=== PATIENT | female | born 1975 | race American Indian/Alaskan Native ===

== ENCOUNTER 2017-05-24 14:26 | Inpatient (IN) | payer MEDICARE ==
[2017-05-24 17:16] LABS: Calcium 7.9 mg/dL (8.4-10.2); Chloride 83.9 mmol/L (98-107); Potassium 5.9 mmol/L (3.6-5.0)
[2017-05-24 17:20] LABS: Hematocrit 20.5 % (30.3-42.9); Hemoglobin 6.5 gm/dl (10.1-14.3); Mean Corpuscular HGB Conc 32 % (30-34); Mean Corpuscular Hemoglobin 28 pg (28-32); Mean Corpuscular Volume 87 fl (79-97); Platelet Count 136 K/mm3 (140-440); Red Blood Count 2.37 M/mm3 (3.65-5.03); Red Cell Distribution Width 18.4 % (13.2-15.2)
[2017-05-24 17:28] LABS: White Blood Count 2.3 K/mm3 (4.5-11.0)
[2017-05-24 18:04] LABS: Basophils % (Manual) 0 % (0.0-1.8); Blastocytes % (Manual) 0 %; Eosinophils % (Manual) 0 % (0.0-4.3)
[2017-05-24 18:06] LABS: Anisocytosis 2+; Ovalocytes 2+
[2017-05-24 18:07] LABS: Hypochromasia 2+; Poikilocytosis 1+; Tear Drop Cells Few
[2017-05-24 18:08] LABS: Diff Status Complete; Platelet Estimate Consistent w Auto
[2017-05-24] MEDS ORDERED: D50W (25GM) Vial 0 ML IV ONE (20:46)
--- NOTE | 2017-05-24 22:00 | Emergency Department Report ---
ED General Adult HPI - General Chief complaint: Skin/Abscess/Foreign Body Stated complaint: FLUID RETENTION X 3 DAYS Time Seen by Provider: 05/24/17 20:06 Source: EMS Mode of arrival: Stretcher Limitations: No Limitations - History of Present Illness Initial comments: Pt is a 41 yo female here for swelling to the right side of her body along with abdominal pain. pt states she was last dialyzed 2 days ago. pt denied any fever but notes that she has been sob. Pt noted mild cough. Pt denied knowledge of why the right side of her body may be more swollen than the left. Pt has had prior abdominal surgeries and noted pain in her upper abdomen with a history of a ventral hernial. Pt denied any vomiting, melena, or hematochezia. Location: face Improves with: none - Related Data Allergies Allergy/AdvReac Type Severity Reaction Status Date / Time ascorbic acid Allergy Hives Verified 05/24/17 16:38 [From Ferotrinsic] ferrous fumarate Allergy Hives Verified 05/24/17 16:38 [From Ferotrinsic] folic acid [From Ferotrinsic] Allergy Hives Verified 05/24/17 16:38 oxycodone Allergy Hives Verified 05/24/17 16:38 tramadol Allergy Hives Verified 05/24/17 16:38 vitamin B12 with intrinsic Allergy Hives Verified 05/24/17 16:38 factor [From Ferotrinsic] ED Review of Systems ROS: Stated complaint: FLUID RETENTION X 3 DAYS Other details as noted in HPI ED Past Medical Hx - Past Medical History Previous Medical History?: Yes Hx Hypertension: Yes Hx Congestive Heart Failure: Yes Hx GERD: Yes Hx Liver Disease: Yes (cirrhosis, ascites) Hx Renal Disease: Yes (MWF?) Hx Arthritis: Yes Hx Seizures: Yes Hx Psychiatric Treatment: Yes (depression) Hx Asthma: Yes Hx HIV: Yes Additional medical history: stents x 2 2014. chronic back pain. high cholestrol. cardiomyopathy. supplemental oxygen. abdominal hernia - Surgical History Past Surgical History?: Yes Hx Appendectomy: Yes Additional Surgical History: bowel obstruction, colostomy reversal x 3 yrs - Social History Smoking Status: Former Smoker Substance Use Type: Alcohol ED Physical Exam - General Limitations: No Limitations General appearance: alert, in no apparent distress, other (right facial edema ) - Head Head exam: Present: other (right facial edema) - Eye Eye exam: Present: normal appearance, PERRL, EOMI - ENT ENT exam: Present: normal exam - Neck Neck exam: Present: normal inspection - Respiratory Respiratory exam: Present: normal lung sounds bilaterally. Absent: respiratory distress, wheezes - Cardiovascular Cardiovascular Exam: Present: regular rate, normal rhythm, other (right arm graft) - GI/Abdominal GI/Abdominal exam: Present: soft, tenderness (left upper quad, umbilical), other (large ventral hernia-no signs of incarceration). Absent: distended, rebound - Extremities Exam Extremities exam: Present: normal inspection, pedal edema, joint swelling ( pitting up to thighs) - Back Exam Back exam: Present: normal inspection - Neurological Exam Neurological exam: Present: alert, oriented X3 - Psychiatric Psychiatric exam: Present: flat affect - Skin Skin exam: Present: warm, dry, intact ED Course Vital Signs 05/24/17 16:20 Temperature 98.1 F Pulse Rate 81 Respiratory 18 Rate Blood Pressure 154/90 - Consultations Consultation #1: 05/25/17 01:00 Dr Rodas ED Medical Decision Making - Lab Data Result diagrams: 05/24/17 16:44 05/24/17 16:44 - EKG Data -: EKG Interpreted by Tn EKG shows normal: sinus rhythm (84) Rate: normal - EKG Data Interpretation: nonspecific ST-T wave bunny (no acute st elevation or depression) , other (poor r wave progression; ) Critical care attestation.: If time is entered above; I have spent that time in minutes in the direct care of this critically ill patient, excluding procedure time. ED Disposition Clinical Impression: Anasarca, Renal anasarca, Abdominal pain, Pleural effusion, left, Pancytopenia , Elevated troponin level, Chronic renal failure Disposition: - OP ADMIT IP TO THIS HOSP Is pt being admited?: Yes Does the pt Need Aspirin: No Condition: Stable Referrals: PRIMARY CARE, [Primary Care Provider] - 3-5 Days
[2017-05-25] MEDS ORDERED: BENADRYL IV ONE (00:02)
[2017-05-25] MEDS ORDERED: PEPCID IV ONE (00:03)
--- NOTE | 2017-05-25 01:10 | History and Physical Report ---
History of Present Illness Chief complaint: confused, History of present illness: 41 YO Female with HTN, CHF, GERD, Ascites, Cirrhosis, HIV, OA, Seizure Disorder , Depression, Asthma, ESRD on HD(M,W,F), CAD S/P Stent Placement, HLD, Chronic Pain presents to ED for evaluation. At time of exam, pt is lethargic, confused, and unable to provide history. Pt is disheveled, emaciated, and chronically ill appearing. Pt seen and evaluated in ED. Pt history taken from medical record, and ED staff. No reports of fever, chills, CP, Palpitations, NVD, Trauma, productive cough, skin rash, or recent ill contacts. Pt was last dialyzed 2 days ago. Pt is confused, and lethargic but is able to protect her airway. Past History Past Medical History: arthritis, ESRD, GERD, heart failure, HIV/AIDS, hypertension, seizures Past Surgical History: appendectomy, bowel surgery Social history: single. denies: smoking, alcohol abuse, prescription drug abuse Family history: hypertension Medications and Allergies Allergies Allergy/AdvReac Type Severity Reaction Status Date / Time ascorbic acid Allergy Hives Verified 05/24/17 16:38 [From Ferotrinsic] ferrous fumarate Allergy Hives Verified 05/24/17 16:38 [From Ferotrinsic] folic acid [From Ferotrinsic] Allergy Hives Verified 05/24/17 16:38 oxycodone Allergy Hives Verified 05/24/17 16:38 tramadol Allergy Hives Verified 05/24/17 16:38 vitamin B12 with intrinsic Allergy Hives Verified 05/24/17 16:38 factor [From Ferotrinsic] Review of Systems ROS unobtainable: due to mental status Exam - Constitutional Vitals: Temp Pulse Resp BP Pulse Ox 98.1 F 81 18 154/90 05/24/17 16:20 05/24/17 16:20 05/24/17 16:20 05/24/17 16:20 General appearance: Present: mild distress - EENT Eyes: Present: PERRL ENT: hearing intact, clear oral mucosa - Neck Neck: Present: supple, normal ROM - Respiratory Respiratory effort: labored Respiratory: bilateral: diminished - Cardiovascular Heart Sounds: Present: S1 & S2. Absent: rub, click - Extremities Extremities: pulses symmetrical, No edema Extremity abnormal: edema Peripheral Pulses: within normal limits - Abdominal General gastrointestinal: Present: soft, non-tender, non-distended, normal bowel sounds Female genitourinary: Present: normal - Integumentary Integumentary: Present: clear, dry, clammy, decreased turgor - Musculoskeletal Musculoskeletal: generalized weakness - Psychiatric Psychiatric: no intact judgment & insight, no memory intact - Neurologic Neurologic: CNII-XII intact, no gait normal Results - Labs CBC & Chem 7: 05/24/17 16:44 05/24/17 16:44 Labs: Abnormal lab results 05/24/17 05/24/17 05/24/17 Range/Units 16:44 16:44 20:44 WBC 2.3 L (4.5-11.0) K/mm3 RBC 2.37 L (3.65-5.03) M/mm3 Hgb 6.5 L (10.1-14.3) gm/dl Hct 20.5 L (30.3-42.9) % RDW 18.4 H (13.2-15.2) % Plt Count 136 L (140-440) K/mm3 Seg Neuts % (Manual) 76.0 H (40.0-70.0) % Lymphocytes % (Manual) 5.0 L (13.4-35.0) % Seg Neutrophils # Man 1.7 L (1.8-7.7) K/mm3 Lymphocytes # (Manual) 0.1 L (1.2-5.4) K/mm3 Sodium 128 L (137-145) mmol/L Potassium 5.9 H (3.6-5.0) mmol/L Chloride 83.9 L (98-107) mmol/L BUN 91 H (7-17) mg/dL Creatinine 9.8 H (0.7-1.2) mg/dL Glucose 53 L (65-100) mg/dL POC Glucose 43 L (70-105) Calcium 7.9 L (8.4-10.2) mg/dL Troponin T 0.293 H* (0.00-0.029) ng/mL Triglycerides 187 H (2-149) mg/dL LDL Cholesterol Direct 19 L (50-130) mg/dL HDL Cholesterol 39 L (40-59) mg/dL Assessment and Plan - Patient Problems (1) Acute hypoxemic respiratory failure Current Visit: Yes Status: Acute Plan to address problem: Supplemental oxygen,nebs, aspiration precautions, incentive spirometry, (2) HIV encephalopathy Current Visit: Yes Status: Acute Plan to address problem: CT head, neuro checks, ammonia level, supportive care, (3) ESRD (end stage renal disease) Current Visit: Yes Status: Acute Plan to address problem: Nephrology consulted for dialysis, fluid restriction, monitor uop q shift to ensure negative fluid balance. (4) Hyperkalemia Current Visit: Yes Status: Acute Plan to address problem: Kayexelate, repeat potassium level, dialysis as per renal team, No EKG changes. (5) Cirrhosis Current Visit: Yes Status: Acute Plan to address problem: LFT, Ammonia level, neuro checks, CT abdomen pelvis, serial abdominal exam. (6) Symptomatic anemia Current Visit: Yes Status: Acute Plan to address problem: PRBC transfusion with dialysis, Epogen as per renal team. (7) DVT prophylaxis Current Visit: Yes Status: Acute
[2017-05-25] MEDS ORDERED: KIONEX PO ONE (01:21)
[2017-05-25] MEDS ORDERED: DULCOLAX PR PRN (02:48)
[2017-05-25] MEDS ORDERED: MILK OF MAGNESIA PO PRN (02:48)
[2017-05-25] MEDS ORDERED: NACL 0.9% 500 ML 500 ML IV ONE (02:54)
[2017-05-25] MEDS ORDERED: NACL 0.9% 500 ML 500 ML ONE (03:38)
[2017-05-25 07:54] LABS: Albumin 2.6 g/dL (3.9-5); Albumin/Globulin Ratio 0.6 %; Bilirubin,Direct 0.3 mg/dL (0-0.2); Bilirubin,Indirect 0.2 mg/dL; Bilirubin,Total 0.5 mg/dL (0.1-1.2); Total Protein 6.9 g/dL (6.3-8.2)
[2017-05-25] MEDS ORDERED: NACL 0.9% 100 ML IV PRN ×2 (08:03→11:08)
[2017-05-25] MEDS: APRESOLINE IV PRN (08:35)
[2017-05-25] MEDS ORDERED: APRESOLINE IV SCH (09:00)
--- NOTE | 2017-05-25 11:09 | Consultation ---
History of Present Illness - Reason for Consult Consult date: 05/25/17 end stage renal disease, hyperkalemia Requesting physician: ISABELLA GRIMM - History of Present Illness Ms Nation (not Martinez) is a 41 yo F with PMHX of HIV/AIDS not on ART, h/ o noncompliance, hypertension, liver cirrhosis w/ chronic ascites, ESRD on HD [place] MWF [place] [facility] [place]y Montaño, well known to our service, is now admitted after presenting with worsening diffuse body swelling, after missing HD during holidays. Renal consult is requested for management of ESRD and volume control. Labs showed hyponatremia with Na 128, K 5.9, and BUN/Cr at 91/ 9.8mg/dl. Pt also found to be anemic with Hb at 6.5. Past History Past Medical History: arthritis, ESRD, GERD, heart failure, HIV/AIDS, hypertension, seizures Past Surgical History: appendectomy, bowel surgery Social history: single. denies: smoking, alcohol abuse, prescription drug abuse Family history: hypertension Medications and Allergies Allergies Allergy/AdvReac Type Severity Reaction Status Date / Time ascorbic acid Allergy Hives Verified 05/24/17 16:38 [From Ferotrinsic] ferrous fumarate Allergy Hives Verified 05/24/17 16:38 [From Ferotrinsic] folic acid [From Ferotrinsic] Allergy Hives Verified 05/24/17 16:38 oxycodone Allergy Hives Verified 05/24/17 16:38 tramadol Allergy Hives Verified 05/24/17 16:38 vitamin B12 with intrinsic Allergy Hives Verified 05/24/17 16:38 factor [From Ferotrinsic] Active Meds: Active Medications Acetaminophen (Tylenol) 650 mg PO Q4H PRN PRN Reason: Pain MILD(1-3)/Fever >100.5/DUNAWAY Bisacodyl (Dulcolax) 10 mg ME QDAY PRN PRN Reason: Constipation unrelieved by MOM Hydralazine HCl (Apresoline) 20 mg IV Q4HR PRN PRN Reason: Blood Pressure Last Admin: 05/25/17 08:35 Dose: 20 mg Sodium Chloride (Nacl 0.9%) 100 mls @ 999 mls/hr IV STEPHAN PRN PRN Reason: Hypotension Sodium Chloride (Nacl 0.9%) 100 mls @ 999 mls/hr IV STEPHAN PRN PRN Reason: Hypotension Magnesium Hydroxide (Milk Of Magnesia) 30 ml PO Q4H PRN PRN Reason: Constipation Ondansetron HCl (Zofran) 4 mg IV Q8H PRN PRN Reason: N/V unrelieved by Reglan Review of Systems All systems: negative Constitutional: fatigue, weakness, malaise Cardiovascular: orthopnea, edema, shortness of breath, dyspnea on exertion Exam - Vital Signs Vital signs: Vital Signs Temp Pulse Resp BP 98.1 F 81 18 154/90 05/24/17 16:20 05/24/17 16:20 05/24/17 16:20 05/24/17 16:20 - General Appearance General appearance: appears stated age, chronically ill, frail EENT: ATNC, PERRL, mucous membranes moist Neck: Present: neck supple Respiratory: Decreased Breath Sounds Heart: regular, S1S2 Gastrointestinal: Present: normoactive bowel sounds Integumentary: no rash, other (edema b/l ) Neurologic: no focal deficit, alert and oriented x3, strength 5/5, CN 3-12 intact Psychiatric: mood/affect appropriate, cooperative Results - Lab Results 05/24/17 16:44 05/24/17 16:44 Most recent lab results Calcium 7.9 mg/dL (8.4-10.2) L 05/24/17 16:44 Assessment and Plan - Patient Problems (1) ESRD (end stage renal disease) Current Visit: Yes Status: Acute Plan to address problem: Will arrange HD today will target 3-4L fluid removal as tolerated. Will transition to MWF schedule starting tomorrow (2) Hyperkalemia Current Visit: Yes Status: Acute Plan to address problem: use 2K bath with HD, cont 2g K renal diet (3) HIV (human immunodeficiency virus infection) Current Visit: Yes Status: Acute Plan to address problem: pt with h/o noncompliance with ART (4) Anasarca Current Visit: Yes Status: Acute Plan to address problem: fluid removal with HD (5) Pleural effusion Current Visit: Yes Status: Acute Plan to address problem: if not improving with HD, recommend therapeutic thoracentesis (6) Cirrhosis Current Visit: Yes Status: Acute Qualifiers: Ascites presence: with ascites Plan to address problem: pt with h/o periodic paracentesis in the past, to reconsider if abdominal girth increases and becomes symptomatic (7) Anemia in chronic illness Current Visit: Yes Status: Acute Plan to address problem: cont EPO [id number] with HD. scheduled for 2PRBC, can transfuse with HD. D/w RN
--- NOTE | 2017-05-25 11:14 | Cat Scan Report ---
FINAL REPORT EXAM: CT ABDOMEN PELVIS WO CON HISTORY: abdominal pain TECHNIQUE: Routine axial imaging was obtained of the abdomen and pelvis without oral or IV contrast. Sagittal and coronal reconstructions were reviewed. FINDINGS: There is a moderate to large right-sided pleural effusion with atelectasis in the right lower lobe. There is mild atelectasis in left base. Heart is moderately enlarged. There is extensive ascites throughout the abdomen and pelvis. The spleen is normal in size reveals numerous granulomatous calcifications. The gallbladder is normal size and contains stones. There are no secondary signs of acute cholecystitis. The kidneys appear atrophic. There is calcifications in both kidneys. There is extensive vascular calcifications in the upper abdomen. The pancreas appears atrophic. The adrenal glands appear normal. The bowel loops are not overtly distended. In the pelvis there are numerous coarse calcifications in the uterus suggesting involuted fibroids. The bladder appears normal. The skeletal structures reveal sclerotic changes in the right femoral head suggesting avascular necrosis. There is arthritic changes lower lumbar spine. IMPRESSION: Extensive ascites. Gallstones. Moderate to large right-sided pleural effusion with infiltrate/atelectasis in the right lower lobe. Mild atelectasis in the left lung base. Atrophic kidneys. Reticulation of the subcutaneous fat suggesting anasarca. 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 Involuted fibroids.
--- NOTE | 2017-05-25 11:38 | Cat Scan Report ---
FINAL REPORT EXAM: CT HEAD WO CONTRAST HISTORY: CONFUSION TECHNIQUE: Routine imaging was obtained of the brain without IV contrast. There are no previous studies available for comparison. FINDINGS: There is [id number] generalized atrophy. There is no evidence of acute stroke or hemorrhage. The ventricular system is appropriate in size and is symmetric. There are benign basal ganglial calcifications body. The sinuses reveal secretions in the right sphenoid sinus. The mastoid air cells are well pneumatized. There is no evidence of skull fracture. IMPRESSION: [id number] generalized atrophy. No acute stroke or hemorrhage. Right sphenoid sinusitis.
--- NOTE | 2017-05-25 14:47 | Progress Note ---
Assessment and Plan Assessment and plan: 40 year old -[place] female presented to the emergency department with complaints of missed dialysis, not feeling well, confusion. Per chart review patient had history of HIV, ESRD on hemodialysis. Patient said she presented for fluid overload Fluid overload secondary to missed dialysis Severe anemia Hyperkalemia ESRD on hemodialysis Right-sided pleural effusion Elevated troponin, cardiomegaly Abdominal pain, clean dressing on the right lower abdomen from surgery History of HIV Leukopenia from HIV - Nephrology consulted and patient had hemodialysis, transfused 3 units of blood , with a posttransfusion H&H - For abdominal pain and surgery, surgery consulted - Patient claims she has been admitted in the stool, GI consulted, transfuse if hemoglobin is below 7 - We'll consult ID for HIV - Paralyzed consulted for the massive pleural effusion - Cardiology is consulted - Follow up with psych DVT prophylaxis - On heparin Disposition - Continue inpatient care Prognosis - guarded History Interval history: Patient was seen and evaluated this morning, patient was confused and wa able to give history. No family member was in the room. No previous medical records in the hospital. Hospitalist Physical - Physical exam Narrative exam: Not in cardiopulmonary distress. The patient appeared well nourished and normally developed. Vital signs as documented. Head exam is unremarkable. No scleral icterus . Neck is without jugular venous distension, thyromegaly, or carotid bruits. Lungs decreased breath sounds on the right lower lung zone. Cardiac exam reveals regular rate and Rhythm. First and second heart sounds normal. No murmurs, rubs or gallops. Abdominal exam reveals clean dressing on the left lower abdomen, soft, mild tenderness. Extremities are nonedematous and both femoral and pedal pulses are normal. BACK HANGER: Patient is confused and asking to leave. - Constitutional Vitals: Temp Pulse Resp BP Pulse Ox 98.8 F 76 20 216/120 98 05/25/17 12:45 05/25/17 13:00 05/25/17 13:00 05/25/17 13:00 05/25/17 12:45 General appearance: Present: mild distress Results - Labs CBC & Chem 7: 05/24/17 16:44 05/24/17 16:44 Labs: Laboratory Last Values WBC 2.3 K/mm3 (4.5-11.0) L 05/24/17 16:44 RBC 2.37 M/mm3 (3.65-5.03) L 05/24/17 16:44 Hgb 6.5 gm/dl (10.1-14.3) L 05/24/17 16:44 Hct 20.5 % (30.3-42.9) L 05/24/17 16:44 MCV 87 fl (79-97) 05/24/17 16:44 MCH 28 pg (28-32) 05/24/17 16:44 MCHC 32 % (30-34) 05/24/17 16:44 RDW 18.4 % (13.2-15.2) H 05/24/17 16:44 Plt Count 136 K/mm3 (140-440) L 05/24/17 16:44 Add Manual Diff Complete 05/24/17 16:44 Total Counted 100 05/24/17 16:44 Seg Neuts % (Manual) 76.0 % (40.0-70.0) H 05/24/17 16:44 Band Neutrophils % 12.0 % 05/24/17 16:44 Lymphocytes % (Manual) 5.0 % (13.4-35.0) L 05/24/17 16:44 Reactive Lymphs % (Man) 0 % 05/24/17 16:44 Monocytes % (Manual) 7.0 % (0.0-7.3) 05/24/17 16:44 Eosinophils % (Manual) 0 % (0.0-4.3) 05/24/17 16:44 Basophils % (Manual) 0 % (0.0-1.8) 05/24/17 16:44 Metamyelocytes % 0 % 05/24/17 16:44 Myelocytes % 0 % 05/24/17 16:44 Promyelocytes % 0 % 05/24/17 16:44 Blast Cells % 0 % 05/24/17 16:44 Nucleated RBC % Not Reportable 05/24/17 16:44 Seg Neutrophils # Man 1.7 K/mm3 (1.8-7.7) L 05/24/17 16:44 Band Neutrophils # 0.3 K/mm3 05/24/17 16:44 Lymphocytes # (Manual) 0.1 K/mm3 (1.2-5.4) L 05/24/17 16:44 Abs React Lymphs (Man) 0.0 K/mm3 05/24/17 16:44 Monocytes # (Manual) 0.2 K/mm3 (0.0-0.8) 05/24/17 16:44 Eosinophils # (Manual) 0.0 K/mm3 (0.0-0.4) 05/24/17 16:44 Basophils # (Manual) 0.0 K/mm3 (0.0-0.1) 05/24/17 16:44 Metamyelocytes # 0.0 K/mm3 05/24/17 16:44 Myelocytes # 0.0 K/mm3 05/24/17 16:44 Promyelocytes # 0.0 K/mm3 05/24/17 16:44 Blast Cells # 0.0 K/mm3 05/24/17 16:44 WBC Morphology Not Reportable 05/24/17 16:44 Hypersegmented Neuts Not Reportable 05/24/17 16:44 Hyposegmented Neuts Not Reportable 05/24/17 16:44 Hypogranular Neuts Not Reportable 05/24/17 16:44 Smudge Cells Not Reportable 05/24/17 16:44 Toxic Granulation Not Reportable 05/24/17 16:44 Toxic Vacuolation Not Reportable 05/24/17 16:44 Dohle Bodies Not Reportable 05/24/17 16:44 Pelger-Huet Anomaly Not Reportable 05/24/17 16:44 Ruben Rods Not Reportable 05/24/17 16:44 Platelet Estimate Consistent w auto 05/24/17 16:44 Clumped Platelets Not Reportable 05/24/17 16:44 Plt Clumps, EDTA Not Reportable 05/24/17 16:44 Large Platelets Not Reportable 05/24/17 16:44 Giant Platelets Not Reportable 05/24/17 16:44 Platelet Satelliting Not Reportable 05/24/17 16:44 Plt Morphology Comment Not Reportable 05/24/17 16:44 RBC Morphology Not Reportable 05/24/17 16:44 Dimorphic RBCs Not Reportable 05/24/17 16:44 Polychromasia Not Reportable 05/24/17 16:44 Hypochromasia 2+ 05/24/17 16:44 Poikilocytosis 1+ 05/24/17 16:44 Anisocytosis 2+ 05/24/17 16:44 Microcytosis Not Reportable 05/24/17 16:44 Macrocytosis Not Reportable 05/24/17 16:44 Spherocytes Not Reportable 05/24/17 16:44 Pappenheimer Bodies Not Reportable 05/24/17 16:44 Sickle Cells Not Reportable 05/24/17 16:44 Target Cells Not Reportable 05/24/17 16:44 Tear Drop Cells Few 05/24/17 16:44 Ovalocytes 2+ 05/24/17 16:44 Helmet Cells Not Reportable 05/24/17 16:44 [place] Bodies Not Reportable 05/24/17 16:44 [place] Rings Not Reportable 05/24/17 16:44 [place] Cells Not Reportable 05/24/17 16:44 Bite Cells Not Reportable 05/24/17 16:44 Crenated Cell Not Reportable 05/24/17 16:44 Elliptocytes Not Reportable 05/24/17 16:44 Acanthocytes (Spur) Not Reportable 05/24/17 16:44 Rouleaux Not Reportable 05/24/17 16:44 Hemoglobin C Crystals Not Reportable 05/24/17 16:44 Schistocytes Not Reportable 05/24/17 16:44 Malaria parasites Not Reportable 05/24/17 16:44 Rick Bodies Not Reportable 05/24/17 16:44 Hem Pathologist Commnt No 05/24/17 16:44 Sodium 128 mmol/L (137-145) L 05/24/17 16:44 Potassium 5.9 mmol/L (3.6-5.0) H 05/24/17 16:44 Chloride 83.9 mmol/L (98-107) L 05/24/17 16:44 Carbon Dioxide 22 mmol/L (22-30) 05/24/17 16:44 Anion Gap 28 mmol/L 05/24/17 16:44 BUN 91 mg/dL (7-17) H 05/24/17 16:44 Creatinine 9.8 mg/dL (0.7-1.2) H 05/24/17 16:44 Estimated GFR 5 ml/min 05/24/17 16:44 BUN/Creatinine Ratio 9 % 05/24/17 16:44 Glucose 53 mg/dL (65-100) L 05/24/17 16:44 POC Glucose 124 (70-105) H 05/25/17 06:06 Calcium 7.9 mg/dL (8.4-10.2) L 05/24/17 16:44 Total Bilirubin 0.50 mg/dL (0.1-1.2) 05/25/17 07:17 Direct Bilirubin 0.3 mg/dL (0-0.2) H 05/25/17 07:17 Indirect Bilirubin 0.2 mg/dL 05/25/17 07:17 AST 17 units/L (5-40) 05/25/17 07:17 ALT 7 units/L (7-56) 05/25/17 07:17 Alkaline Phosphatase 355 units/L (35-129) H 05/25/17 07:17 Ammonia 26.0 umol/L (25-60) 05/25/17 07:18 Troponin T 0.293 ng/mL (0.00-0.029) H* 05/24/17 16:44 Total Protein 6.9 g/dL (6.3-8.2) 05/25/17 07:17 Albumin 2.6 g/dL (3.9-5) L 05/25/17 07:17 Albumin/Globulin Ratio 0.6 % 05/25/17 07:17 Triglycerides 187 mg/dL (2-149) H 05/24/17 16:44 Cholesterol 95 mg/dL (50-199) 05/24/17 16:44 LDL Cholesterol Direct 19 mg/dL (50-130) L 05/24/17 16:44 HDL Cholesterol 39 mg/dL (40-59) L 05/24/17 16:44 Cholesterol/HDL Ratio 2.43 % 05/24/17 16:44 Blood Type A POSITIVE 05/25/17 03:54 Antibody Screen Negative 05/25/17 03:54 Crossmatch See Detail 05/25/17 03:54
[2017-05-25] MEDS: TYLENOL PO PRN ×2 (15:08→21:11)
[2017-05-25] MEDS: ZOFRAN IV PRN (15:10)
[2017-05-25] MEDS: DILAUDID IV PRN ×2 (15:16→19:00)
--- NOTE | 2017-05-25 15:26 | Consultation ---
History of Present Illness Consult date: 05/25/17 Requesting physician: MARIA VICTORIA BARNES Consult reason: shortness of breath, other (cardiomegaly) History of present illness: The pt is a 41 YO female with a past medical history significant for ESRD on HD , HTN, HIV, liver cirrhosis, ascites, seizures. She is previously unknown to our practice. Pt is lethargic on evaluation and is a poor historian and thus the majority of the HPI is obtained per the primary RN at bedside and per the chart. Pt presented with c/o SOB x 3 days [employer]. Pt was apparently living in a fdc and missed HD for 1 week prior to the onset of her SOB. Pt does not provide any additional details. She c/o back pain on evaluation. Pt is seen s/p HD and PRBC tx. BP is currently 206/108. Admission CXR concerning for large right pleural effusion. H/H 6.5/20.5; WBC 2.3; RBC 2.3; NA 128; K 5.9; Ca 7.9; BUN/CR 91/9.8; troponin 0.293. Past History Past Medical History: dialysis, ESRD, HIV/AIDS, hypertension, seizures Past Surgical History: appendectomy Social history: single. denies: smoking, alcohol abuse, prescription drug abuse Medications and Allergies Allergies Allergy/AdvReac Type Severity Reaction Status Date / Time ascorbic acid Allergy Hives Verified 05/24/17 16:38 [From Ferotrinsic] ferrous fumarate Allergy Hives Verified 05/24/17 16:38 [From Ferotrinsic] folic acid [From Ferotrinsic] Allergy Hives Verified 05/24/17 16:38 oxycodone Allergy Hives Verified 05/24/17 16:38 tramadol Allergy Hives Verified 05/24/17 16:38 vitamin B12 with intrinsic Allergy Hives Verified 05/24/17 16:38 factor [From Ferotrinsic] Active Meds: Active Medications Acetaminophen (Tylenol) 650 mg PO Q4H PRN PRN Reason: Pain MILD(1-3)/Fever >100.5/DUNAWAY Last Admin: 05/25/17 15:08 Dose: 650 mg Amlodipine Besylate (Norvasc) 10 mg PO QDAY KATHARINA Bisacodyl (Dulcolax) 10 mg [place] QDAY PRN PRN Reason: Constipation unrelieved by MOM Clonidine HCl (Catapres) 0.3 mg PO Q8HR [facility] Epoetin Demar (Epogen) 20,000 unit IV STEPHAN [facility] Stop: 06/01/17 11:59 Hydralazine HCl (Apresoline) 20 mg IV Q4HR PRN PRN Reason: Blood Pressure Last Admin: 05/25/17 08:35 Dose: 20 mg Hydralazine HCl (Apresoline) 100 mg PO TID KATHARINA Hydromorphone HCl (Dilaudid) 1 mg IV Q4H PRN PRN Reason: Pain , Severe (7-10) Last Admin: 05/25/17 15:16 Dose: 1 mg Sodium Chloride (Nacl 0.9%) 100 mls @ 999 mls/hr IV STEPHAN PRN PRN Reason: Hypotension Magnesium Hydroxide (Milk Of Magnesia) 30 ml PO Q4H PRN PRN Reason: Constipation Ondansetron HCl (Zofran) 4 mg IV Q8H PRN PRN Reason: N/V unrelieved by Reglan Last Admin: 05/25/17 15:10 Dose: 4 mg Review of Systems All systems: negative Cardiovascular: shortness of breath, no chest pain Physical Examination Vital Signs Temp Pulse Resp BP 98.1 F 81 18 154/90 05/24/17 16:20 05/24/17 16:20 05/24/17 16:20 05/24/17 16:20 General appearance: no acute distress, cachectic, other (lethargic) HEENT: Positive: PERRL Neck: Positive: neck supple, trachea midline Cardiac: Positive: Reg Rate and Rhythm, S1/S2 Lungs: Positive: clear to auscultation (left side), Decreased Breath Sounds ( right side) Neuro: Positive: Grossly Intact Abdomen: Positive: Active Bowel Sounds. Negative: Tender Skin: Positive: Clear. Negative: Rash Extremities: Present: edema (trace BLE) Results 05/24/17 16:44 05/24/17 16:44 Cardiac Enzymes 05/25/17 Range/Units 07:17 AST 17 (5-40) units/L Lipids 05/24/17 Range/Units 16:44 Triglycerides 187 H (2-149) mg/dL Cholesterol 95 (50-199) mg/dL HDL Cholesterol 39 L (40-59) mg/dL Cholesterol/HDL Ratio 2.43 % CBC 05/24/17 Range/Units 16:44 WBC 2.3 L (4.5-11.0) K/mm3 RBC 2.37 L (3.65-5.03) M/mm3 Hgb 6.5 L (10.1-14.3) gm/dl Hct 20.5 L (30.3-42.9) % Plt Count 136 L (140-440) K/mm3 Comprehensive Metabolic Panel 05/24/17 05/25/17 Range/Units 16:44 07:17 Sodium 128 L (137-145) mmol/L Potassium 5.9 H (3.6-5.0) mmol/L Chloride 83.9 L (98-107) mmol/L Carbon Dioxide 22 (22-30) mmol/L BUN 91 H (7-17) mg/dL Creatinine 9.8 H (0.7-1.2) mg/dL Glucose 53 L (65-100) mg/dL Calcium 7.9 L (8.4-10.2) mg/dL Direct Bilirubin 0.3 H (0-0.2) mg/dL Indirect Bilirubin 0.2 mg/dL AST 17 (5-40) units/L ALT 7 (7-56) units/L Alkaline Phosphatase 355 H (35-129) units/L Total Protein 6.9 (6.3-8.2) g/dL Albumin 2.6 L (3.9-5) g/dL - Imaging and Cardiology Echo: pending EKG: report reviewed, image reviewed EKG interpretations - Telemetry EKG Rhythm: Sinus Rhythm - EKG Sinus rhythms and dysrhythmias: sinus rhythm Repolarization changes or abnormalities: nonspecific abnormality, ST segment, and/or T wave Assessment and Plan Assessment: Hypertensive urgency Volume overload secondary to missed dialysis Large right-sided pleural effusion - pulmonary consultation pending ESRD on HD Severe anemia / pancytopenia - s/p PRBC tx ? GI bleed - stool occult pending NSTEMI type II - ECG with no acute ischemic changes; pt denies chest pain Cirrhosis with ascites Hyponatremia Hyperkalemia HIV H/o seizures H/o noncompliance Malnutrition Plan: Obtain echo. Cont to trend Se. Repeat EKG in AM. Optimize anti-hypertensive regimen. Hold ASA/DAPT in setting of severe anemia and possible GI bleed. GI consultation pending. Volume optimization and electrolyte management per nephrology/HD. Overall guarded prognosis. The patient has been seen in conjunction with Dr. CAREN Atkinson who agrees with the assessment and plan of care.
[2017-05-25] MEDS: NORVASC PO SCH (15:39)
--- NOTE | 2017-05-25 15:40 | Consultation ---
History of Present Illness Consult date: 05/25/17 Reason for consult: abdominal pain Requesting physician: MARIA VICTORIA BARNES Chief complaint: abdominal pain, missed HD - History of present illness History of present illness: 41 yo F with extensive PMHx including ESRD on HD, HIV, liver cirrhosis, ascites presents to hospital after missing HD. The patient is an extremely poor historian and all of the history is obtained from the chart. The patient does complain of abdominal pain however she is unable to characterize or localize the pain. She also c/o nausea and emesis which she states has had bright blood in it. The abd pain, n/v has been ongoing for the last several days. Apparently , the patient did miss HD over the holidays and has a hx of noncompliance. She also states she has been having dark, loose, BMs for the last few days. She states she had a cscope a "few days ago". She has a hx of multiple abdominal surgeries but cannot tell me exactly what was done, but states they were done in [place] at an unknown hospital. Past History Past Medical History: arthritis, ESRD, GERD, heart failure, HIV/AIDS, hypertension, seizures Past Surgical History: appendectomy, bowel surgery Social history: single. denies: smoking, alcohol abuse, prescription drug abuse Family history: hypertension Medications and Allergies Allergies Allergy/AdvReac Type Severity Reaction Status Date / Time ascorbic acid Allergy Hives Verified 05/24/17 16:38 [From Ferotrinsic] ferrous fumarate Allergy Hives Verified 05/24/17 16:38 [From Ferotrinsic] folic acid [From Ferotrinsic] Allergy Hives Verified 05/24/17 16:38 oxycodone Allergy Hives Verified 05/24/17 16:38 tramadol Allergy Hives Verified 05/24/17 16:38 vitamin B12 with intrinsic Allergy Hives Verified 05/24/17 16:38 factor [From Ferotrinsic] Active Meds: Active Medications Acetaminophen (Tylenol) 650 mg PO Q4H PRN PRN Reason: Pain MILD(1-3)/Fever >100.5/DUNAWAY Last Admin: 05/25/17 15:08 Dose: 650 mg Amlodipine Besylate (Norvasc) 10 mg PO QDAY KATHARINA Bisacodyl (Dulcolax) 10 mg [place] QDAY PRN PRN Reason: Constipation unrelieved by MOM Clonidine HCl (Catapres) 0.3 mg PO Q8HR KATHARINA Epoetin Demar (Epogen) 20,000 unit IV STEPHAN KATHARINA Stop: 06/01/17 11:59 Hydralazine HCl (Apresoline) 20 mg IV Q4HR PRN PRN Reason: Blood Pressure Last Admin: 05/25/17 08:35 Dose: 20 mg Hydralazine HCl (Apresoline) 100 mg PO TID KATHARINA Hydromorphone HCl (Dilaudid) 1 mg IV Q4H PRN PRN Reason: Pain , Severe (7-10) Last Admin: 05/25/17 15:16 Dose: 1 mg Sodium Chloride (Nacl 0.9%) 100 mls @ 999 mls/hr IV STEPHAN PRN PRN Reason: Hypotension Magnesium Hydroxide (Milk Of Magnesia) 30 ml PO Q4H PRN PRN Reason: Constipation Ondansetron HCl (Zofran) 4 mg IV Q8H PRN PRN Reason: N/V unrelieved by Reglan Last Admin: 05/25/17 15:10 Dose: 4 mg Review of Systems All systems: negative (see hpi) Exam Vital Signs Temp Pulse Resp BP 98.1 F 81 18 154/90 05/24/17 16:20 05/24/17 16:20 05/24/17 16:20 05/24/17 16:20 Narrative exam: Gen: AAOx3. NAD. generalized anasarca CV: S1, S2+ Resp: NO audible wheezes Abd: soft, multiple ventral hernias vs loss of domain, soft, TTP in R side of abdomen. No r/r/g. Midline superficial abdominal wound, clean pink base without evidence of infection. Ext: no clubbing, cyanosis Results - Labs 05/24/17 16:44 05/24/17 16:44 Abnormal lab results 05/24/17 05/24/17 05/24/17 Range/Units 16:44 16:44 20:44 WBC 2.3 L (4.5-11.0) K/mm3 RBC 2.37 L (3.65-5.03) M/mm3 Hgb 6.5 L (10.1-14.3) gm/dl Hct 20.5 L (30.3-42.9) % RDW 18.4 H (13.2-15.2) % Plt Count 136 L (140-440) K/mm3 Seg Neuts % (Manual) 76.0 H (40.0-70.0) % Lymphocytes % (Manual) 5.0 L (13.4-35.0) % Seg Neutrophils # Man 1.7 L (1.8-7.7) K/mm3 Lymphocytes # (Manual) 0.1 L (1.2-5.4) K/mm3 Sodium 128 L (137-145) mmol/L Potassium 5.9 H (3.6-5.0) mmol/L Chloride 83.9 L (98-107) mmol/L BUN 91 H (7-17) mg/dL Creatinine 9.8 H (0.7-1.2) mg/dL Glucose 53 L (65-100) mg/dL POC Glucose 43 L (70-105) Calcium 7.9 L (8.4-10.2) mg/dL Direct Bilirubin (0-0.2) mg/dL Alkaline Phosphatase (35-129) units/L Troponin T 0.293 H* (0.00-0.029) ng/mL Albumin (3.9-5) g/dL Triglycerides 187 H (2-149) mg/dL LDL Cholesterol Direct 19 L (50-130) mg/dL HDL Cholesterol 39 L (40-59) mg/dL Crossmatch 05/25/17 05/25/17 05/25/17 Range/Units 01:28 03:54 06:06 WBC (4.5-11.0) K/mm3 RBC (3.65-5.03) M/mm3 Hgb (10.1-14.3) gm/dl Hct (30.3-42.9) % RDW (13.2-15.2) % Plt Count (140-440) K/mm3 Seg Neuts % (Manual) (40.0-70.0) % Lymphocytes % (Manual) (13.4-35.0) % Seg Neutrophils # Man (1.8-7.7) K/mm3 Lymphocytes # (Manual) (1.2-5.4) K/mm3 Sodium (137-145) mmol/L Potassium (3.6-5.0) mmol/L Chloride (98-107) mmol/L BUN (7-17) mg/dL Creatinine (0.7-1.2) mg/dL Glucose (65-100) mg/dL POC Glucose 109 H 124 H (70-105) Calcium (8.4-10.2) mg/dL Direct Bilirubin (0-0.2) mg/dL Alkaline Phosphatase (35-129) units/L Troponin T (0.00-0.029) ng/mL Albumin (3.9-5) g/dL Triglycerides (2-149) mg/dL LDL Cholesterol Direct (50-130) mg/dL HDL Cholesterol (40-59) mg/dL Crossmatch See Detail 05/25/17 Range/Units 07:17 WBC (4.5-11.0) K/mm3 RBC (3.65-5.03) M/mm3 Hgb (10.1-14.3) gm/dl Hct (30.3-42.9) % RDW (13.2-15.2) % Plt Count (140-440) K/mm3 Seg Neuts % (Manual) (40.0-70.0) % Lymphocytes % (Manual) (13.4-35.0) % Seg Neutrophils # Man (1.8-7.7) K/mm3 Lymphocytes # (Manual) (1.2-5.4) K/mm3 Sodium (137-145) mmol/L Potassium (3.6-5.0) mmol/L Chloride (98-107) mmol/L BUN (7-17) mg/dL Creatinine (0.7-1.2) mg/dL Glucose (65-100) mg/dL POC Glucose (70-105) Calcium (8.4-10.2) mg/dL Direct Bilirubin 0.3 H (0-0.2) mg/dL Alkaline Phosphatase 355 H (35-129) units/L Troponin T (0.00-0.029) ng/mL Albumin 2.6 L (3.9-5) g/dL Triglycerides (2-149) mg/dL LDL Cholesterol Direct (50-130) mg/dL HDL Cholesterol (40-59) mg/dL Crossmatch Diabetes panel 05/24/17 05/25/17 Range/Units 16:44 07:17 Sodium 128 L (137-145) mmol/L Potassium 5.9 H (3.6-5.0) mmol/L Chloride 83.9 L (98-107) mmol/L Carbon Dioxide 22 (22-30) mmol/L BUN 91 H (7-17) mg/dL Creatinine 9.8 H (0.7-1.2) mg/dL Glucose 53 L (65-100) mg/dL Calcium 7.9 L (8.4-10.2) mg/dL AST 17 (5-40) units/L ALT 7 (7-56) units/L Alkaline Phosphatase 355 H (35-129) units/L Total Protein 6.9 (6.3-8.2) g/dL Albumin 2.6 L (3.9-5) g/dL Triglycerides 187 H (2-149) mg/dL HDL Cholesterol 39 L (40-59) mg/dL Calcium panel 05/24/17 05/25/17 Range/Units 16:44 07:17 Calcium 7.9 L (8.4-10.2) mg/dL Albumin 2.6 L (3.9-5) g/dL Pituitary panel 05/24/17 Range/Units 16:44 Sodium 128 L (137-145) mmol/L Potassium 5.9 H (3.6-5.0) mmol/L Chloride 83.9 L (98-107) mmol/L Carbon Dioxide 22 (22-30) mmol/L BUN 91 H (7-17) mg/dL Creatinine 9.8 H (0.7-1.2) mg/dL Glucose 53 L (65-100) mg/dL Calcium 7.9 L (8.4-10.2) mg/dL Adrenal panel 05/24/17 05/25/17 Range/Units 16:44 07:17 Sodium 128 L (137-145) mmol/L Potassium 5.9 H (3.6-5.0) mmol/L Chloride 83.9 L (98-107) mmol/L Carbon Dioxide 22 (22-30) mmol/L BUN 91 H (7-17) mg/dL Creatinine 9.8 H (0.7-1.2) mg/dL Glucose 53 L (65-100) mg/dL Calcium 7.9 L (8.4-10.2) mg/dL Total Bilirubin 0.50 (0.1-1.2) mg/dL AST 17 (5-40) units/L ALT 7 (7-56) units/L Alkaline Phosphatase 355 H (35-129) units/L Total Protein 6.9 (6.3-8.2) g/dL Albumin 2.6 L (3.9-5) g/dL - Imaging CT scan - abdomen: report reviewed, image reviewed CT scan - pelvis: report reviewed, image reviewed (extensive ascites, gallstones. Moderate to large right sided pleural effusion with infiltrate/ atelectasis in the right lowe lobe. mild atelectasis in the left lung base. Atrophic kidneys. Reticulation of the subcutaneous fat suggesting anasarca. 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 Involuted fibroids.) Assessment and Plan 41 y/o F with 1. ESRD on HD 2. Anemia -> chronic with possible superimposed GI source 3. Cirrhosis with Ascites 4. Abdominal pain, N/V/Diarrhea 5. HIV 6. HTN 7. elevated Troponin 8. pleural effusion 9. malnutrition 10. hyperkalemia Plan: 1. Gi c/s pending 2. Clear liquids 3. nausea and pain control prn 4. stool studies 5. wound care consult for abd wound 6. HD per nephro 7. abd pain may be secondary to symptomatic ascites, may need paracentesis if does not improve 8. recheck BMP, CBC in am 9. transfuse PRN, PRBC transfusion ordered for today 10. continue meds for HTN 11. cards c/s pending
--- NOTE | 2017-05-25 16:47 | Gastroenterology Consultation ---
History of Present Illness - Reason for Consult Consult date: 05/25/17 anemia Requesting physician: MARIA VICTORIA BARNES - History of Present Illness Ms Martinez is a 41 yo aaf with past medical history as detailed below including HIV (not on treatment), ESRD, and cirrhosis who presents with AMS. History primarily gathered from chart review as patient unable to provide much history at the time of exam. She is awake, appears uncomfortable, but minimally responds to questions. She reportedly has had episodes of n/v since admission. Patient unable to describe appearance of emesis but reportedly with signs of possible blood (pt nods "yes" when asked if dark appearing emesis" although history may be unreliable based on mental status). She reports having multiple bm's w/o signs of overt bleeding. She reportedly has missed recent dialysis sessions as well. She was found to have severe anemia on admission, unknown baseline, with repeat labs pending. Past History Past Medical History: dialysis, ESRD, HIV/AIDS, hypertension, seizures Past Surgical History: appendectomy Social history: single. denies: smoking, alcohol abuse, prescription drug abuse Family history: hypertension Medications and Allergies Allergies Allergy/AdvReac Type Severity Reaction Status Date / Time ascorbic acid Allergy Hives Verified 05/24/17 16:38 [From Ferotrinsic] ferrous fumarate Allergy Hives Verified 05/24/17 16:38 [From Ferotrinsic] folic acid [From Ferotrinsic] Allergy Hives Verified 05/24/17 16:38 oxycodone Allergy Hives Verified 05/24/17 16:38 tramadol Allergy Hives Verified 05/24/17 16:38 vitamin B12 with intrinsic Allergy Hives Verified 05/24/17 16:38 factor [From Ferotrinsic] Active Meds: Active Medications Acetaminophen (Tylenol) 650 mg PO Q4H PRN PRN Reason: Pain MILD(1-3)/Fever >100.5/DUNAWAY Last Admin: 05/25/17 15:08 Dose: 650 mg Amlodipine Besylate (Norvasc) 10 mg PO QDAY [facility] Last Admin: 05/25/17 15:39 Dose: 10 mg Bisacodyl (Dulcolax) 10 mg [place] QDAY PRN PRN Reason: Constipation unrelieved by MOM Epoetin Demar (Epogen) 20,000 unit IV STEPHAN [facility] Stop: 06/01/17 11:59 Hydralazine HCl (Apresoline) 20 mg IV Q4HR PRN PRN Reason: Blood Pressure Last Admin: 05/25/17 08:35 Dose: 20 mg Hydralazine HCl (Apresoline) 100 mg PO TID KATHARINA Hydromorphone HCl (Dilaudid) 1 mg IV Q4H PRN PRN Reason: Pain , Severe (7-10) Last Admin: 05/25/17 15:16 Dose: 1 mg Sodium Chloride (Nacl 0.9%) 100 mls @ 999 mls/hr IV STEPHAN PRN PRN Reason: Hypotension Magnesium Hydroxide (Milk Of Magnesia) 30 ml PO Q4H PRN PRN Reason: Constipation Metoprolol Tartrate (Lopressor) 50 mg PO BID KATHARINA Ondansetron HCl (Zofran) 4 mg IV Q8H PRN PRN Reason: N/V unrelieved by Geetha Last Admin: 05/25/17 15:10 Dose: 4 mg Review of Systems - Review of Systems ROS unobtainable: due to mental status Exam - Constitutional Vital Signs: Temp Pulse Resp BP Pulse Ox 98.0 F 90 24 220/90 100 05/25/17 14:35 05/25/17 15:39 05/25/17 14:35 05/25/17 15:39 05/25/17 14:35 General appearance: mild distress, cachectic, disheveled - EENT ENT: other (dry mucous membranes, small amt of blood in oral mucosa) - Respiratory Respiratory effort: normal Respiratory: bilateral: CTA - Cardiovascular Rhythm: regular Heart Sounds: Present: S1 & S2 Extremity abnormal: other (trace edema) - Gastrointestinal General gastrointestinal: Present: other (soft, + surgical scar/wound, diffuse ttp, nd, +bs) - Neurologic Neurological: disoriented - Labs CBC & Chem 7: 05/24/17 16:44 05/24/17 16:44 Lab Results: Laboratory Results - last 24 hr 05/24/17 05/24/17 05/24/17 16:44 16:44 20:44 WBC 2.3 L RBC 2.37 L Hgb 6.5 L Hct 20.5 L MCV 87 MCH 28 MCHC 32 RDW 18.4 H Plt Count 136 L Add Manual Diff Complete Total Counted 100 Seg Neuts % (Manual) 76.0 H Band Neutrophils % 12.0 Lymphocytes % (Manual) 5.0 L Reactive Lymphs % (Man) 0 Monocytes % (Manual) 7.0 Eosinophils % (Manual) 0 Basophils % (Manual) 0 Metamyelocytes % 0 Myelocytes % 0 Promyelocytes % 0 Blast Cells % 0 Nucleated RBC % Not Reportable Seg Neutrophils # Man 1.7 L Band Neutrophils # 0.3 Lymphocytes # (Manual) 0.1 L Abs React Lymphs (Man) 0.0 Monocytes # (Manual) 0.2 Eosinophils # (Manual) 0.0 Basophils # (Manual) 0.0 Metamyelocytes # 0.0 Myelocytes # 0.0 Promyelocytes # 0.0 Blast Cells # 0.0 WBC Morphology Not Reportable Hypersegmented Neuts Not Reportable Hyposegmented Neuts Not Reportable Hypogranular Neuts Not Reportable Smudge Cells Not Reportable Toxic Granulation Not Reportable Toxic Vacuolation Not Reportable Dohle Bodies Not Reportable Pelger-Huet Anomaly Not Reportable Ruben Rods Not Reportable Platelet Estimate Consistent w auto Clumped Platelets Not Reportable Plt Clumps, EDTA Not Reportable Large Platelets Not Reportable Giant Platelets Not Reportable Platelet Satelliting Not Reportable Plt Morphology Comment Not Reportable RBC Morphology Not Reportable Dimorphic RBCs Not Reportable Polychromasia Not Reportable Hypochromasia 2+ Poikilocytosis 1+ Anisocytosis 2+ Microcytosis Not Reportable Macrocytosis Not Reportable Spherocytes Not Reportable Pappenheimer Bodies Not Reportable Sickle Cells Not Reportable Target Cells Not Reportable Tear Drop Cells Few Ovalocytes 2+ Helmet Cells Not Reportable [place] Bodies Not Reportable [place] Rings Not Reportable [place] Cells Not Reportable Bite Cells Not Reportable Crenated Cell Not Reportable Elliptocytes Not Reportable Acanthocytes (Spur) Not Reportable Rouleaux Not Reportable Hemoglobin C Crystals Not Reportable Schistocytes Not Reportable Malaria parasites Not Reportable Rick Bodies Not Reportable Hem Pathologist Commnt No Sodium 128 L Potassium 5.9 H Chloride 83.9 L Carbon Dioxide 22 Anion Gap 28 BUN 91 H Creatinine 9.8 H Estimated GFR 5 BUN/Creatinine Ratio 9 Glucose 53 L POC Glucose 43 L Calcium 7.9 L Total Bilirubin Direct Bilirubin Indirect Bilirubin AST ALT Alkaline Phosphatase Ammonia Troponin T 0.293 H* Total Protein Albumin Albumin/Globulin Ratio Triglycerides 187 H Cholesterol 95 LDL Cholesterol Direct 19 L HDL Cholesterol 39 L Cholesterol/HDL Ratio 2.43 Blood Type Antibody Screen Crossmatch 05/24/17 05/25/17 05/25/17 21:35 01:28 03:54 WBC RBC Hgb Hct MCV MCH MCHC RDW Plt Count Add Manual Diff Total Counted Seg Neuts % (Manual) Band Neutrophils % Lymphocytes % (Manual) Reactive Lymphs % (Man) Monocytes % (Manual) Eosinophils % (Manual) Basophils % (Manual) Metamyelocytes % Myelocytes % Promyelocytes % Blast Cells % Nucleated RBC % Seg Neutrophils # Man Band Neutrophils # Lymphocytes # (Manual) Abs React Lymphs (Man) Monocytes # (Manual) Eosinophils # (Manual) Basophils # (Manual) Metamyelocytes # Myelocytes # Promyelocytes # Blast Cells # WBC Morphology Hypersegmented Neuts Hyposegmented Neuts Hypogranular Neuts Smudge Cells Toxic Granulation Toxic Vacuolation Dohle Bodies Pelger-Huet Anomaly Ruben Rods Platelet Estimate Clumped Platelets Plt Clumps, EDTA Large Platelets Giant Platelets Platelet Satelliting Plt Morphology Comment RBC Morphology Dimorphic RBCs Polychromasia Hypochromasia Poikilocytosis Anisocytosis Microcytosis Macrocytosis Spherocytes Pappenheimer Bodies Sickle Cells Target Cells Tear Drop Cells Ovalocytes Helmet Cells [place] Bodies [place] Rings [place] Cells Bite Cells Crenated Cell Elliptocytes Acanthocytes (Spur) Rouleaux Hemoglobin C Crystals Schistocytes Malaria parasites Rick Bodies Hem Pathologist Commnt Sodium Potassium Chloride Carbon Dioxide Anion Gap BUN Creatinine Estimated GFR BUN/Creatinine Ratio Glucose POC Glucose 82 109 H Calcium Total Bilirubin Direct Bilirubin Indirect Bilirubin AST ALT Alkaline Phosphatase Ammonia Troponin T Total Protein Albumin Albumin/Globulin Ratio Triglycerides Cholesterol LDL Cholesterol Direct HDL Cholesterol Cholesterol/HDL Ratio Blood Type A POSITIVE Antibody Screen Negative Crossmatch See Detail 05/25/17 05/25/17 05/25/17 06:06 07:17 07:18 WBC RBC Hgb Hct MCV MCH MCHC RDW Plt Count Add Manual Diff Total Counted Seg Neuts % (Manual) Band Neutrophils % Lymphocytes % (Manual) Reactive Lymphs % (Man) Monocytes % (Manual) Eosinophils % (Manual) Basophils % (Manual) Metamyelocytes % Myelocytes % Promyelocytes % Blast Cells % Nucleated RBC % Seg Neutrophils # Man Band Neutrophils # Lymphocytes # (Manual) Abs React Lymphs (Man) Monocytes # (Manual) Eosinophils # (Manual) Basophils # (Manual) Metamyelocytes # Myelocytes # Promyelocytes # Blast Cells # WBC Morphology Hypersegmented Neuts Hyposegmented Neuts Hypogranular Neuts Smudge Cells Toxic Granulation Toxic Vacuolation Dohle Bodies Pelger-Huet Anomaly Ruben Rods Platelet Estimate Clumped Platelets Plt Clumps, EDTA Large Platelets Giant Platelets Platelet Satelliting Plt Morphology Comment RBC Morphology Dimorphic RBCs Polychromasia Hypochromasia Poikilocytosis Anisocytosis Microcytosis Macrocytosis Spherocytes Pappenheimer Bodies Sickle Cells Target Cells Tear Drop Cells Ovalocytes Helmet Cells [place] Bodies [place] Rings [place] Cells Bite Cells Crenated Cell Elliptocytes Acanthocytes (Spur) Rouleaux Hemoglobin C Crystals Schistocytes Malaria parasites Rick Bodies Hem Pathologist Commnt Sodium Potassium Chloride Carbon Dioxide Anion Gap BUN Creatinine Estimated GFR BUN/Creatinine Ratio Glucose POC Glucose 124 H Calcium Total Bilirubin 0.50 Direct Bilirubin 0.3 H Indirect Bilirubin 0.2 AST 17 ALT 7 Alkaline Phosphatase 355 H Ammonia 26.0 Troponin T Total Protein 6.9 Albumin 2.6 L Albumin/Globulin Ratio 0.6 Triglycerides Cholesterol LDL Cholesterol Direct HDL Cholesterol Cholesterol/HDL Ratio Blood Type Antibody Screen Crossmatch - Imaging CT Scan: report reviewed Assessment and Plan 1. Anemia - unknown baseline, along with pancytopenia. repeat labs pending. difficult to obtain history from pt regarding signs of overt bleeding. Start IV PPI and octreotide if any signs of bleeding develops. EGD if signs of overt bleeding and based on clinical course/progress. 2. Cirrhosis - unclear etiology, + ascites, ammonia wnl; check viral hep serologies and diagnostic tap if feasible by IR. avoid sedating medications. 3. HIV 4. ESRD
[2017-05-25 16:48] LABS: Hematocrit 30.7 % (30.3-42.9); Hemoglobin 10.5 gm/dl (10.1-14.3); Mean Corpuscular HGB Conc 34 % (30-34); Mean Corpuscular Hemoglobin 30 pg (28-32); Mean Corpuscular Volume 87 fl (79-97); Platelet Count 133 K/mm3 (140-440); Red Blood Count 3.52 M/mm3 (3.65-5.03); Red Cell Distribution Width 16.6 % (13.2-15.2); White Blood Count 3.7 K/mm3 (4.5-11.0)
[2017-05-25 17:04] LABS: Calcium 8.2 mg/dL (8.4-10.2); Chloride 90.1 mmol/L (98-107); Potassium 4.1 mmol/L (3.6-5.0)
[2017-05-25 17:07] LABS: HIV-1 Antigen p24 Non React (Non React); HIVR-1/2 Ab Reactive (Non React)
[2017-05-25 17:12] LABS: Creatine Kinase MB 4.4 ng/mL (0.0-4.0)
[2017-05-25 17:40] LABS: Basophils % (Manual) 0 % (0.0-1.8); Blastocytes % (Manual) 0 %; Eosinophils % (Manual) 0 % (0.0-4.3)
[2017-05-25 17:41] LABS: Anisocytosis 2+; Elliptocytes Few; Platelet Estimate Consistent w Auto; Poikilocytosis 1+
[2017-05-25 17:42] LABS: Diff Status Complete
--- NOTE | 2017-05-25 17:46 | XRay Report ---
FINAL REPORT EXAM: XR CHEST 1V AP HISTORY: Shortness of breath TECHNIQUE: Chest single AP PRIORS: None. FINDINGS: There is marked opacity throughout the right tavares thorax suspect atelectasis/infiltrate with probable effusion. The diaphragm is not identified on the right. Left lung demonstrates no acute findings. No left effusion seen. Cardiac silhouette is partially obscured. IMPRESSION: Marked opacity throughout the right tavares thorax with some aeration at the upper lobes. Findings likely reflect atelectasis/infiltrate and probable effusion. CT is suggested for further evaluation
[2017-05-25 19:03] LABS: Hematocrit 27.8 % (30.3-42.9); Hemoglobin 9.3 gm/dl (10.1-14.3)
[2017-05-25] MEDS: APRESOLINE PO SCH (21:11)
[2017-05-25] MEDS: LOPRESSOR PO SCH (21:11)
[2017-05-25] MEDS ORDERED: CATAPRES PO SCH (22:00)
[2017-05-26] MEDS: DILAUDID IV PRN ×3 (00:02→23:24)
[2017-05-26 01:55] LABS: Hematocrit 31.7 % (30.3-42.9); Hemoglobin 10.8 gm/dl (10.1-14.3)
[2017-05-26] MEDS: APRESOLINE IV PRN ×2 (06:04→23:00)
[2017-05-26 06:56] LABS: Hematocrit 33.5 % (30.3-42.9); Hemoglobin 11.3 gm/dl (10.1-14.3)
--- NOTE | 2017-05-26 07:49 | Progress Note ---
Assessment and Plan Assessment and plan: 40 year old -[place] female presented to the emergency department with complaints of missed dialysis, not feeling well, confusion. Per chart review patient had history of HIV, ESRD on hemodialysis. Patient said she presented for fluid overload Abdominal pain, anorexia and nausea GI input appreciated, advance diet as tolerated. Fluid overload secondary to missed dialysis continue HD counseled on improved compliance Hyperkalemia Has now resolved with dialysis ESRD on hemodialysis Nephrology consulted and patient had hemodialysis Severe Anemia transfused 3 units of blood, with a posttransfusion H&H GI input appreciated "Anemia - unknown baseline, along with pancytopenia. repeat labs pending. difficult to obtain history from pt regarding signs of overt bleeding. Start IV PPI and octreotide if any signs of bleeding develops. EGD if signs of overt bleeding and based on clinical course/progress. Cirrhosis with ascites - unclear etiology, + ascites, ammonia wnl; check viral hep serologies and diagnostic tap if feasible by IR. avoid sedating medications. " -For paracentesis today or ascites Type II NV Manage comorbidities, no further workup indicated Abdominal wound and right buttock ulcer Present on admission, continue wound care HIV infection Case discussed with infectious disease consultants Continue Bactrim for PJP prophylaxis, follow-up CD4 and viral load. Id consult appreciated History Interval history: She still complaining of abdominal pain and she eats, poor appetite. Occasional nausea. Review of systems Constitutional: No fevers, complaining of generalized weakness CVS: No chest pain, no orthopnea, no dyspnea on exertion, no pedal edema GI: Abdominal pain, nausea, anorexia Respiratory: No shortness of breath, no wheezing, no coughing Hospitalist Physical - Physical exam Narrative exam: General.: Appears chronically ill cachetic HEENT: Moist mucous membranes, extraocular muscles intact, no lymphadenopathy Neck: supple Cardiac: S1-S2 heard Lungs: clear to auscultation bilaterally Abdomen: soft , nontender, nondistended, bowel sounds positive Extremities: no edema clubbing or cyanosis Skin: Abdominal wounds noted, no odor or drainage Right gluteal fold wound, no drainage or order presents Neurologic: no gross focal deficits Psych: appropriate behavior, appropriate mood, corporative, judgment intact - Constitutional Vitals: Temp Pulse Resp BP Pulse Ox 98.8 F 83 20 158/103 100 05/26/17 07:35 05/26/17 07:35 05/26/17 07:35 05/26/17 07:35 05/26/17 07:35 General appearance: Present: no acute distress, cachectic, other (lethargic) Results - Labs CBC & Chem 7: 05/26/17 06:23 05/25/17 16:08 Labs: Laboratory Last Values WBC 3.7 K/mm3 (4.5-11.0) L 05/25/17 16:08 RBC 3.52 M/mm3 (3.65-5.03) L 05/25/17 16:08 Hgb 11.3 gm/dl (10.1-14.3) 05/26/17 06:23 Hct 33.5 % (30.3-42.9) 05/26/17 06:23 MCV 87 fl (79-97) 05/25/17 16:08 MCH 30 pg (28-32) 05/25/17 16:08 MCHC 34 % (30-34) 05/25/17 16:08 RDW 16.6 % (13.2-15.2) H 05/25/17 16:08 Plt Count 133 K/mm3 (140-440) L 05/25/17 16:08 Add Manual Diff Complete 05/25/17 16:08 Total Counted 100 05/25/17 16:08 Seg Neutrophils % Boat Repairer 05/25/17 16:08 Seg Neuts % (Manual) 98.0 % (40.0-70.0) H 05/25/17 16:08 Band Neutrophils % 0 % 05/25/17 16:08 Lymphocytes % (Manual) 0 % (13.4-35.0) L 05/25/17 16:08 Reactive Lymphs % (Man) 0 % 05/25/17 16:08 Monocytes % (Manual) 2.0 % (0.0-7.3) 05/25/17 16:08 Eosinophils % (Manual) 0 % (0.0-4.3) 05/25/17 16:08 Basophils % (Manual) 0 % (0.0-1.8) 05/25/17 16:08 Metamyelocytes % 0 % 05/25/17 16:08 Myelocytes % 0 % 05/25/17 16:08 Promyelocytes % 0 % 05/25/17 16:08 Blast Cells % 0 % 05/25/17 16:08 Nucleated RBC % Not Reportable 05/25/17 16:08 Seg Neutrophils # Man 3.6 K/mm3 (1.8-7.7) 05/25/17 16:08 Band Neutrophils # 0.0 K/mm3 05/25/17 16:08 Lymphocytes # (Manual) 0.0 K/mm3 (1.2-5.4) L 05/25/17 16:08 Abs React Lymphs (Man) 0.0 K/mm3 05/25/17 16:08 Monocytes # (Manual) 0.1 K/mm3 (0.0-0.8) 05/25/17 16:08 Eosinophils # (Manual) 0.0 K/mm3 (0.0-0.4) 05/25/17 16:08 Basophils # (Manual) 0.0 K/mm3 (0.0-0.1) 05/25/17 16:08 Metamyelocytes # 0.0 K/mm3 05/25/17 16:08 Myelocytes # 0.0 K/mm3 05/25/17 16:08 Promyelocytes # 0.0 K/mm3 05/25/17 16:08 Blast Cells # 0.0 K/mm3 05/25/17 16:08 WBC Morphology Not Reportable 05/25/17 16:08 Hypersegmented Neuts Not Reportable 05/25/17 16:08 Hyposegmented Neuts Not Reportable 05/25/17 16:08 Hypogranular Neuts Not Reportable 05/25/17 16:08 Smudge Cells Not Reportable 05/25/17 16:08 Toxic Granulation Not Reportable 05/25/17 16:08 Toxic Vacuolation Not Reportable 05/25/17 16:08 Dohle Bodies Not Reportable 05/25/17 16:08 Pelger-Huet Anomaly Not Reportable 05/25/17 16:08 Ruben Rods Not Reportable 05/25/17 16:08 Platelet Estimate Consistent w auto 05/25/17 16:08 Clumped Platelets Not Reportable 05/25/17 16:08 Plt Clumps, EDTA Not Reportable 05/25/17 16:08 Large Platelets Not Reportable 05/25/17 16:08 Giant Platelets Not Reportable 05/25/17 16:08 Platelet Satelliting Not Reportable 05/25/17 16:08 Plt Morphology Comment Not Reportable 05/25/17 16:08 RBC Morphology Not Reportable 05/25/17 16:08 Dimorphic RBCs Not Reportable 05/25/17 16:08 Polychromasia Not Reportable 05/25/17 16:08 Hypochromasia Not Reportable 05/25/17 16:08 Poikilocytosis 1+ 05/25/17 16:08 Anisocytosis 2+ 05/25/17 16:08 Microcytosis Not Reportable 05/25/17 16:08 Macrocytosis Not Reportable 05/25/17 16:08 Spherocytes Not Reportable 05/25/17 16:08 Pappenheimer Bodies Not Reportable 05/25/17 16:08 Sickle Cells Not Reportable 05/25/17 16:08 Target Cells Not Reportable 05/25/17 16:08 Tear Drop Cells Not Reportable 05/25/17 16:08 Ovalocytes Not Reportable 05/25/17 16:08 Helmet Cells Not Reportable 05/25/17 16:08 [place] Bodies Not Reportable 05/25/17 16:08 [place] Rings Not Reportable 05/25/17 16:08 Nell Cells Not Reportable 05/25/17 16:08 Bite Cells Not Reportable 05/25/17 16:08 Crenated Cell Not Reportable 05/25/17 16:08 Elliptocytes Few 05/25/17 16:08 Acanthocytes (Spur) Not Reportable 05/25/17 16:08 Rouleaux Not Reportable 05/25/17 16:08 Hemoglobin C Crystals Not Reportable 05/25/17 16:08 Schistocytes Not Reportable 05/25/17 16:08 Malaria parasites Not Reportable 05/25/17 16:08 Rick Bodies Not Reportable 05/25/17 16:08 Hem Pathologist Commnt No 05/25/17 16:08 Sodium 135 mmol/L (137-145) L D 05/25/17 16:08 Potassium 4.1 mmol/L (3.6-5.0) D 05/25/17 16:08 Chloride 90.1 mmol/L (98-107) L 05/25/17 16:08 Carbon Dioxide 23 mmol/L (22-30) 05/25/17 16:08 Anion Gap 26 mmol/L 05/25/17 16:08 BUN 47 mg/dL (7-17) H 05/25/17 16:08 Creatinine 5.9 mg/dL (0.7-1.2) H 05/25/17 16:08 Estimated GFR 9 ml/min 05/25/17 16:08 BUN/Creatinine Ratio 8 % 05/25/17 16:08 Glucose 143 mg/dL (65-100) H 05/25/17 16:08 POC Glucose 111 (70-105) H 05/26/17 06:14 Calcium 8.2 mg/dL (8.4-10.2) L 05/25/17 16:08 Total Bilirubin 0.50 mg/dL (0.1-1.2) 05/25/17 07:17 Direct Bilirubin 0.3 mg/dL (0-0.2) H 05/25/17 07:17 Indirect Bilirubin 0.2 mg/dL 05/25/17 07:17 AST 17 units/L (5-40) 05/25/17 07:17 ALT 7 units/L (7-56) 05/25/17 07:17 Alkaline Phosphatase 355 units/L (35-129) H 05/25/17 07:17 Ammonia 26.0 umol/L (25-60) 05/25/17 07:18 Total Creatine Kinase 97 units/L (30-135) 05/25/17 16:08 CK-MB (CK-2) 4.4 ng/mL (0.0-4.0) H 05/25/17 16:08 CK-MB (CK-2) Rel Index 4.5 (0-4) H 05/25/17 16:08 Troponin T 0.349 ng/mL (0.00-0.029) H* 05/25/17 16:08 Total Protein 6.9 g/dL (6.3-8.2) 05/25/17 07:17 Albumin 2.6 g/dL (3.9-5) L 05/25/17 07:17 Albumin/Globulin Ratio 0.6 % 05/25/17 07:17 Triglycerides 187 mg/dL (2-149) H 05/24/17 16:44 Cholesterol 95 mg/dL (50-199) 05/24/17 16:44 LDL Cholesterol Direct 19 mg/dL (50-130) L 05/24/17 16:44 HDL Cholesterol 39 mg/dL (40-59) L 05/24/17 16:44 Cholesterol/HDL Ratio 2.43 % 05/24/17 16:44 HIV 1&2 Antibody Rapid Reactive (Non React) 05/25/17 16:08 HIV P24 Antigen Non react (Non React) 05/25/17 16:08 Blood Type A POSITIVE 05/25/17 03:54 Antibody Screen Negative 05/25/17 03:54 Crossmatch See Detail 05/25/17 03:54
[2017-05-26] MEDS: APRESOLINE PO SCH ×2 (08:13→20:29)
[2017-05-26] MEDS ORDERED: NACL 0.9% 100 ML IV PRN (08:30)
[2017-05-26] MEDS: LOPRESSOR PO SCH (10:00)
--- NOTE | 2017-05-26 10:57 | Gastroenterology Progress Note ---
<SHERRI ORTA - Last Filed: 05/26/17 10:58> Assessment and Plan 1.anemia 2.cirrhosis 3.HIV 4.ESRD -ammonia-WNL -HGB 11.3-s/p transfusion of 3 units PRBCs -no active signs of bleeding overnight or this am- start IV PPI and octreotide if any signs of bleeding develops -continue to monitor H/H and transfuse as needed -cirrhosis w/ ascites- unclear etiology (pt is a poor historian) -will order viral hep serologies and paracentesis today -avoid sedating medications -continue supportive care -will follow Subjective Date of service: 05/26/17 Principal diagnosis: anemia Interval history: Patient sitting on the side of the bed, no acute distress. Confused and oriented to person only. C/o nausea. No active signs of bleeding overnight or this am per nursing. Objective - Constitutional Vitals: Temp Pulse Resp BP Pulse Ox 98.8 F 83 20 158/103 100 05/26/17 07:35 05/26/17 07:35 05/26/17 07:35 05/26/17 07:35 05/26/17 07:35 General appearance: no acute distress, cachectic, disheveled - Respiratory Respiratory: bilateral: diminished - Cardiovascular Rhythm: regular Heart Sounds: Present: S1 & S2 - Gastrointestinal General gastrointestinal: Present: tender (diffuse mild tenderness), distended ( ascites), normal bowel sounds, other ( + surgical scar/wound) - Integumentary Integumentary: Present: warm, dry - Neurologic Neurological: oriented to person - Labs CBC & Chem 7: 05/26/17 06:23 05/25/17 16:08 Labs: Laboratory Results - last 24 hr 05/25/17 05/25/17 05/25/17 03:54 16:08 16:08 WBC 3.7 L RBC 3.52 L Hgb 10.5 D Hct 30.7 D MCV 87 MCH 30 MCHC 34 RDW 16.6 H Plt Count 133 L Add Manual Diff Complete Total Counted 100 Seg Neutrophils % Warehouse Associate Seg Neuts % (Manual) 98.0 H Band Neutrophils % 0 Lymphocytes % (Manual) 0 L Reactive Lymphs % (Man) 0 Monocytes % (Manual) 2.0 Eosinophils % (Manual) 0 Basophils % (Manual) 0 Metamyelocytes % 0 Myelocytes % 0 Promyelocytes % 0 Blast Cells % 0 Nucleated RBC % Not Reportable Seg Neutrophils # Man 3.6 Band Neutrophils # 0.0 Lymphocytes # (Manual) 0.0 L Abs React Lymphs (Man) 0.0 Monocytes # (Manual) 0.1 Eosinophils # (Manual) 0.0 Basophils # (Manual) 0.0 Metamyelocytes # 0.0 Myelocytes # 0.0 Promyelocytes # 0.0 Blast Cells # 0.0 WBC Morphology Not Reportable Hypersegmented Neuts Not Reportable Hyposegmented Neuts Not Reportable Hypogranular Neuts Not Reportable Smudge Cells Not Reportable Toxic Granulation Not Reportable Toxic Vacuolation Not Reportable Dohle Bodies Not Reportable Pelger-Huet Anomaly Not Reportable Ruben Rods Not Reportable Platelet Estimate Consistent w auto Clumped Platelets Not Reportable Plt Clumps, EDTA Not Reportable Large Platelets Not Reportable Giant Platelets Not Reportable Platelet Satelliting Not Reportable Plt Morphology Comment Not Reportable RBC Morphology Not Reportable Dimorphic RBCs Not Reportable Polychromasia Not Reportable Hypochromasia Not Reportable Poikilocytosis 1+ Anisocytosis 2+ Microcytosis Not Reportable Macrocytosis Not Reportable Spherocytes Not Reportable Pappenheimer Bodies Not Reportable Sickle Cells Not Reportable Target Cells Not Reportable Tear Drop Cells Not Reportable Ovalocytes Not Reportable Helmet Cells Not Reportable [place] Bodies Not Reportable Salix Rings Not Reportable Nell Cells Not Reportable Bite Cells Not Reportable Crenated Cell Not Reportable Elliptocytes Few Acanthocytes (Spur) Not Reportable Rouleaux Not Reportable Hemoglobin C Crystals Not Reportable Schistocytes Not Reportable Malaria parasites Not Reportable Rick Bodies Not Reportable Hem Pathologist Commnt No Sodium 135 L D Potassium 4.1 D Chloride 90.1 L Carbon Dioxide 23 Anion Gap 26 BUN 47 H Creatinine 5.9 H Estimated GFR 9 BUN/Creatinine Ratio 8 Glucose 143 H POC Glucose Calcium 8.2 L Total Creatine Kinase CK-MB (CK-2) CK-MB (CK-2) Rel Index Troponin T C-Reactive Protein HIV 1&2 Antibody Rapid Reactive HIV P24 Antigen Non react Blood Type A POSITIVE Antibody Screen Negative Crossmatch See Detail 05/25/17 05/25/17 05/25/17 16:08 16:57 18:10 WBC RBC Hgb 9.3 L Hct 27.8 L MCV MCH MCHC RDW Plt Count Add Manual Diff Total Counted Seg Neutrophils % Seg Neuts % (Manual) Band Neutrophils % Lymphocytes % (Manual) Reactive Lymphs % (Man) Monocytes % (Manual) Eosinophils % (Manual) Basophils % (Manual) Metamyelocytes % Myelocytes % Promyelocytes % Blast Cells % Nucleated RBC % Seg Neutrophils # Man Band Neutrophils # Lymphocytes # (Manual) Abs React Lymphs (Man) Monocytes # (Manual) Eosinophils # (Manual) Basophils # (Manual) Metamyelocytes # Myelocytes # Promyelocytes # Blast Cells # WBC Morphology Hypersegmented Neuts Hyposegmented Neuts Hypogranular Neuts Smudge Cells Toxic Granulation Toxic Vacuolation Dohle Bodies Pelger-Huet Anomaly Ruben Rods Platelet Estimate Clumped Platelets Plt Clumps, EDTA Large Platelets Giant Platelets Platelet Satelliting Plt Morphology Comment RBC Morphology Dimorphic RBCs Polychromasia Hypochromasia Poikilocytosis Anisocytosis Microcytosis Macrocytosis Spherocytes Pappenheimer Bodies Sickle Cells Target Cells Tear Drop Cells Ovalocytes Helmet Cells [place] Bodies Salix Rings Nell Cells Bite Cells Crenated Cell Elliptocytes Acanthocytes (Spur) Rouleaux Hemoglobin C Crystals Schistocytes Malaria parasites Rick Bodies Hem Pathologist Commnt Sodium Potassium Chloride Carbon Dioxide Anion Gap BUN Creatinine Estimated GFR BUN/Creatinine Ratio Glucose POC Glucose 139 H Calcium Total Creatine Kinase 97 CK-MB (CK-2) 4.4 H CK-MB (CK-2) Rel Index 4.5 H Troponin T 0.349 H* C-Reactive Protein HIV 1&2 Antibody Rapid HIV P24 Antigen Blood Type Antibody Screen Crossmatch 05/25/17 05/26/17 05/26/17 21:26 01:32 06:14 WBC RBC Hgb 10.8 Hct 31.7 MCV MCH MCHC RDW Plt Count Add Manual Diff Total Counted Seg Neutrophils % Seg Neuts % (Manual) Band Neutrophils % Lymphocytes % (Manual) Reactive Lymphs % (Man) Monocytes % (Manual) Eosinophils % (Manual) Basophils % (Manual) Metamyelocytes % Myelocytes % Promyelocytes % Blast Cells % Nucleated RBC % Seg Neutrophils # Man Band Neutrophils # Lymphocytes # (Manual) Abs React Lymphs (Man) Monocytes # (Manual) Eosinophils # (Manual) Basophils # (Manual) Metamyelocytes # Myelocytes # Promyelocytes # Blast Cells # WBC Morphology Hypersegmented Neuts Hyposegmented Neuts Hypogranular Neuts Smudge Cells Toxic Granulation Toxic Vacuolation Dohle Bodies Pelger-Huet Anomaly Ruben Rods Platelet Estimate Clumped Platelets Plt Clumps, EDTA Large Platelets Giant Platelets Platelet Satelliting Plt Morphology Comment RBC Morphology Dimorphic RBCs Polychromasia Hypochromasia Poikilocytosis Anisocytosis Microcytosis Macrocytosis Spherocytes Pappenheimer Bodies Sickle Cells Target Cells Tear Drop Cells Ovalocytes Helmet Cells [place] Bodies Salix Rings [place] Cells Bite Cells Crenated Cell Elliptocytes Acanthocytes (Spur) Rouleaux Hemoglobin C Crystals Schistocytes Malaria parasites Rick Bodies Hem Pathologist Commnt Sodium Potassium Chloride Carbon Dioxide Anion Gap BUN Creatinine Estimated GFR BUN/Creatinine Ratio Glucose POC Glucose 130 H 111 H Calcium Total Creatine Kinase CK-MB (CK-2) CK-MB (CK-2) Rel Index Troponin T C-Reactive Protein HIV 1&2 Antibody Rapid HIV P24 Antigen Blood Type Antibody Screen Crossmatch 05/26/17 05/26/17 06:23 10:05 WBC RBC Hgb 11.3 Hct 33.5 MCV MCH MCHC RDW Plt Count Add Manual Diff Total Counted Seg Neutrophils % Seg Neuts % (Manual) Band Neutrophils % Lymphocytes % (Manual) Reactive Lymphs % (Man) Monocytes % (Manual) Eosinophils % (Manual) Basophils % (Manual) Metamyelocytes % Myelocytes % Promyelocytes % Blast Cells % Nucleated RBC % Seg Neutrophils # Man Band Neutrophils # Lymphocytes # (Manual) Abs React Lymphs (Man) Monocytes # (Manual) Eosinophils # (Manual) Basophils # (Manual) Metamyelocytes # Myelocytes # Promyelocytes # Blast Cells # WBC Morphology Hypersegmented Neuts Hyposegmented Neuts Hypogranular Neuts Smudge Cells Toxic Granulation Toxic Vacuolation Dohle Bodies Pelger-Huet Anomaly Ruben Rods Platelet Estimate Clumped Platelets Plt Clumps, EDTA Large Platelets Giant Platelets Platelet Satelliting Plt Morphology Comment RBC Morphology Dimorphic RBCs Polychromasia Hypochromasia Poikilocytosis Anisocytosis Microcytosis Macrocytosis Spherocytes Pappenheimer Bodies Sickle Cells Target Cells Tear Drop Cells Ovalocytes Helmet Cells [place] Bodies Salix Rings Nell Cells Bite Cells Crenated Cell Elliptocytes Acanthocytes (Spur) Rouleaux Hemoglobin C Crystals Schistocytes Malaria parasites Rick Bodies Hem Pathologist Commnt Sodium Potassium Chloride Carbon Dioxide Anion Gap BUN Creatinine Estimated GFR BUN/Creatinine Ratio Glucose POC Glucose Calcium Total Creatine Kinase CK-MB (CK-2) CK-MB (CK-2) Rel Index Troponin T C-Reactive Protein 6.70 H HIV 1&2 Antibody Rapid HIV P24 Antigen Blood Type Antibody Screen Crossmatch <HALEIGH MCCULLOUGH Lydia - Last Filed: 05/27/17 10:41> Assessment and Plan Patient seen and examined on 05/26. Agree with note by Sherri Orta. Diagnostic tap pending. no signs of bleeding at present time. Objective - Constitutional Vitals: Temp Pulse Resp BP Pulse Ox 98.7 F 94 H 20 202/121 96 05/27/17 07:30 05/27/17 07:30 05/27/17 10:07 05/27/17 10:02 05/27/17 07:30 - Labs CBC & Chem 7: 05/26/17 06:23 05/25/17 16:08 Labs: Laboratory Results - last 24 hr 05/26/17 05/26/17 05/27/17 10:05 11:24 05:13 PT 16.5 H INR 1.27 H POC Glucose C-Reactive Protein 6.70 H Hepatitis A IgM Ab Non-reactive Hep B Core IgM Ab Non-reactive Hepatitis C Antibody Non-reactive 05/27/17 05:56 PT INR POC Glucose 68 L C-Reactive Protein Hepatitis A IgM Ab Hep B Core IgM Ab Hepatitis C Antibody
--- NOTE | 2017-05-26 11:08 | Progress Note ---
Assessment and Plan Assessment: Hypertensive urgency Volume overload secondary to missed dialysis Large right-sided pleural effusion - pulmonary consultation pending ESRD on HD Severe anemia / pancytopenia - s/p PRBC tx ? GI bleed - stool occult pending NSTEMI type II - ECG with no acute ischemic changes; pt denies chest pain Cirrhosis with ascites Hyponatremia Hyperkalemia HIV H/o seizures H/o noncompliance Malnutrition Plan: Await echo. Initiate low dose lipitor. Optimize anti-hypertensive regimen. Hold ASA/DAPT in setting of severe anemia and possible GI bleed. Volume optimization and electrolyte management per nephrology/HD. Overall guarded prognosis. The patient has been seen in conjunction with Dr. CAREN Atkinson who agrees with the assessment and plan of care. Subjective Date of service: 05/26/17 Principal diagnosis: anemia Interval history: pt with no current complaints. VSS. Objective Last Vital Signs Temp 98.8 F 05/26/17 07:35 Pulse 83 05/26/17 07:35 Resp 20 05/26/17 07:35 BP 158/103 05/26/17 07:35 Pulse Ox 100 05/26/17 07:35 - Physical Examination General: No Apparent Distress, Cachectic HEENT: Positive: PERRL Neck: Positive: neck supple, trachea midline Cardiac: Positive: Reg Rate and Rhythm, irregularly irregular Lungs: Positive: clear to auscultation Neuro: Positive: Grossly Intact Abdomen: Positive: Active Bowel Sounds, Distended. Negative: Tender Skin: Positive: Clear. Negative: Rash Extremities: Present: edema (trace BLE) - Labs and Meds Cardiac Enzymes 05/25/17 Range/Units 16:08 CK-MB (CK-2) 4.4 H (0.0-4.0) ng/mL CBC 05/25/17 05/25/17 05/26/17 Range/Units 16:08 18:10 01:32 WBC 3.7 L (4.5-11.0) K/mm3 RBC 3.52 L (3.65-5.03) M/mm3 Hgb 10.5 D 9.3 L 10.8 (10.1-14.3) gm/dl Hct 30.7 D 27.8 L 31.7 (30.3-42.9) % Plt Count 133 L (140-440) K/mm3 05/26/17 Range/Units 06:23 WBC (4.5-11.0) K/mm3 RBC (3.65-5.03) M/mm3 Hgb 11.3 (10.1-14.3) gm/dl Hct 33.5 (30.3-42.9) % Plt Count (140-440) K/mm3 Comprehensive Metabolic Panel 05/25/17 Range/Units 16:08 Sodium 135 L D (137-145) mmol/L Potassium 4.1 D (3.6-5.0) mmol/L Chloride 90.1 L (98-107) mmol/L Carbon Dioxide 23 (22-30) mmol/L BUN 47 H (7-17) mg/dL Creatinine 5.9 H (0.7-1.2) mg/dL Glucose 143 H (65-100) mg/dL Calcium 8.2 L (8.4-10.2) mg/dL - Imaging and Cardiology EKG: report reviewed, image reviewed Echo: pending - Telemetry EKG Rhythm: Sinus Rhythm - EKG Sinus rhythms and dysrhythmias: sinus rhythm Repolarization changes or abnormalities: nonspecific abnormality, ST segment, and/or T wave
--- NOTE | 2017-05-26 11:24 | Progress Note ---
Assessment and Plan - Patient Problems (1) ESRD (end stage renal disease) Current Visit: Yes Status: Acute Plan to address problem: cont HD MWF, target UF 2-3 L as tolerated (2) Hyperkalemia Current Visit: Yes Status: Acute Plan to address problem: resolved with HD, cont 2g K renal diet (3) HIV (human immunodeficiency virus infection) Current Visit: Yes Status: Acute Plan to address problem: pt with h/o noncompliance with ART (4) Anasarca Current Visit: Yes Status: Acute Plan to address problem: fluid removal with HD (5) Pleural effusion Current Visit: Yes Status: Acute Plan to address problem: if not improving with HD, recommend therapeutic thoracentesis (6) Cirrhosis Current Visit: Yes Status: Acute Qualifiers: Ascites presence: with ascites Plan to address problem: pt with h/o periodic paracentesis in the past, to reconsider if abdominal girth increases and becomes symptomatic. follow GI recs (7) Anemia in chronic illness Current Visit: Yes Status: Acute Plan to address problem: cont [id number] with HD. Hb improved to 10.5 after 3PRBC Subjective Date of service: 05/26/17 Principal diagnosis: anemia Interval history: pt awake alert, reports improved swelling after HD Objective - Vital Signs Vital signs: Vital Signs - 12hr 05/26/17 05/26/17 05:24 07:35 Temperature 98.2 F 98.8 F Pulse Rate 83 Respiratory 20 20 Rate Blood Pressure 170/100 Blood Pressure 158/103 [Left] O2 Sat by Pulse 100 Oximetry - General Appearance General appearance: cachectic, chronically ill, frail EENT: ATNC, PERRL, mucous membranes moist, other (periorbital edema improved ) Neck: no JVD Respiratory: Present: Decreased Breath Sounds Cardiology: regular, S1S2 Gastrointestinal: normoactive bowel sounds, distended Integumentary: no rash, other (+ edema ) Neurologic: no focal deficit, alert and oriented x3, CN 3-12 intact Psychiatric: mood/affect appropriate, cooperative - Lab 05/26/17 06:23 05/25/17 16:08 Most recent lab results Calcium 8.2 mg/dL (8.4-10.2) L 05/25/17 16:08
--- NOTE | 2017-05-26 12:53 | Consultation ---
History of Present Illness - Reason for Consult Consult date: 05/26/17 HIV Requesting physician: MARIA VICTORIA BARNES - History of Present Illness 41 years old female with history of HIV infection of unclear duration, HTN, CHF , GERD, Ascites, Cirrhosis, OA, Seizure Disorder, Depression, Asthma, ESRD on HD (M,W,F), CAD S/P Stent Placement, HLD, Chronic Pain; admitted on 05/24/2017 due to right sided body swelling including face, arm, torso and leg. She is also complaining of dry cough and shortness of breath of unclear duration. Patient is currently confused and she is unable to remember when she was diagnosed with HIV, she reports that she was taking HIV medication at some point, that has not been taking them for several years. She does not remember her HIV provider. She reports that back in August 2016 she has an intra-abdominal obstruction and since then she has abdominal ventral hernia. Denies fever, chills, N/V/D. In the emergency room, initial temperature 98.1, heart rate 81, blood pressure 154/90. Initial white count 2.3, hemoglobin 6.5, platelets 136. Creatinine 9.8. Chest x-ray showed a right sided infiltrate. CT showed extensive ascites with moderate to large right pleural effusion associated with a right lower lobe infiltrate versus atelectasis. CT of the head showed generalized brain atrophy and right sphenoidal sinusitis. Microbiology: none Current Antimicrobials: none Previous Antimicrobials: Past History Past Medical History: dialysis, ESRD, HIV/AIDS, hypertension, seizures Past Surgical History: appendectomy Social history: single. denies: smoking, alcohol abuse, prescription drug abuse Family history: hypertension Medications and Allergies Allergies Allergy/AdvReac Type Severity Reaction Status Date / Time ascorbic acid Allergy Hives Verified 05/24/17 16:38 [From Ferotrinsic] ferrous fumarate Allergy Hives Verified 05/24/17 16:38 [From Ferotrinsic] folic acid [From Ferotrinsic] Allergy Hives Verified 05/24/17 16:38 oxycodone Allergy Hives Verified 05/24/17 16:38 tramadol Allergy Hives Verified 05/24/17 16:38 vitamin B12 with intrinsic Allergy Hives Verified 05/24/17 16:38 factor [From Ferotrinsic] Home Medications Medication Instructions Recorded Confirmed Last Taken Type Aspirin EC [Aspirin Enteric Coated 81 mg PO QDAY 05/25/17 05/25/17 Unknown History TAB] Carvedilol [Coreg] 25 mg PO BID 05/25/17 05/25/17 Unknown History Cholestyramine (with Sugar) 1 packet PO BID 05/25/17 05/25/17 Unknown History [Questran] Docusate Sodium [Colace CAP] 100 mg PO Q12H PRN 05/25/17 05/25/17 Unknown History FLUoxetine [Prozac] 5 ml PO QDAY 05/25/17 05/25/17 Unknown History Ferrous Sulfate [Iron] 325 mg PO QDAY 05/25/17 05/25/17 Unknown History HYDROcodone/APAP 10-325 [[place] 1 tab PO Q6H PRN 05/25/17 05/25/17 Unknown History 10-325 mg TAB] Hydralazine HCl [Hydralazine HCl] 50 mg PO TID 05/25/17 05/25/17 Unknown History Lactulose [Constulose] 30 ml PO TID 05/25/17 05/25/17 Unknown History Lisinopril [Zestril] 20 mg PO QDAY 05/25/17 05/25/17 Unknown History Nut.tx.imp.renal Fxn,Lac-Reduc 1 can PO QDAY 05/25/17 05/25/17 Unknown History [Nepro Carb Steady] Pantoprazole Sodium [Pantoprazole 40 mg PO QAM 05/25/17 05/25/17 Unknown History Sodium] Pravastatin Sodium [Pravastatin] 10 mg PO QHS 05/25/17 05/25/17 Unknown History cloNIDine [Catapres] 0.2 mg PO TID 05/25/17 05/25/17 Unknown History levETIRAcetam [Keppra TAB] 500 mg PO BID 05/25/17 05/25/17 Unknown History traZODone [Desyrel] 50 mg PO QHS PRN 05/25/17 05/25/17 Unknown History Active Meds: Active Medications Acetaminophen (Tylenol) 650 mg PO Q4H PRN PRN Reason: Pain MILD(1-3)/Fever >100.5/DUNAWAY Last Admin: 05/25/17 21:11 Dose: 650 mg Amlodipine Besylate (Norvasc) 10 mg PO QDAY [facility] Last Admin: 05/25/17 15:39 Dose: 10 mg Bisacodyl (Dulcolax) 10 mg [place] QDAY PRN PRN Reason: Constipation unrelieved by MOM Epoetin Demar (Epogen) 20,000 unit IV STEPHAN [facility] Stop: 06/01/17 11:59 Hydralazine HCl (Apresoline) 20 mg IV Q4HR PRN PRN Reason: Blood Pressure Last Admin: 05/26/17 06:04 Dose: 20 mg Hydralazine HCl (Apresoline) 100 mg PO TID [facility] Last Admin: 05/26/17 08:13 Dose: 100 mg Hydromorphone HCl (Dilaudid) 1 mg IV Q4H PRN PRN Reason: Pain , Severe (7-10) Last Admin: 05/26/17 08:13 Dose: 1 mg Sodium Chloride (Nacl 0.9%) 100 mls @ 999 mls/hr IV STEPHAN PRN PRN Reason: Hypotension Magnesium Hydroxide (Milk Of Magnesia) 30 ml PO Q4H PRN PRN Reason: Constipation Metoprolol Tartrate (Lopressor) 50 mg PO BID [facility] Last Admin: 05/25/17 21:11 Dose: 50 mg Ondansetron HCl (Zofran) 4 mg IV Q8H PRN PRN Reason: N/V unrelieved by Reglan Last Admin: 05/25/17 15:10 Dose: 4 mg Review of Systems All systems: negative (as per HPI, rest ROS negative) Physical Examination - Physical Exam Narrative exam: General appearance: Alert in NAD, cachectic, disheveled. Eyes: anicteric sclerae, moist conjunctivae; no lid-lag; PERRLA HENT: Atraumatic; oropharynx +thrush Neck: Trachea midline; supple, no thyromegaly or lymphadenopathy Lungs: CTA CV: RRR, no murmurs Abdomen: Soft, marked ventral hernia with superficial skin tears Extremities: No peripheral edema or extremity lymphadenopathy Skin: marked right arm edema with pronounced AVF Psych: anxious Neuro: alert and oriented x 3. Moving all extermities Lines: No CVL / PICC - Constitutional Vitals: Vital Signs Temp Pulse Resp BP Pulse Ox 98.8 F 83 20 158/103 100 05/26/17 07:35 05/26/17 07:35 05/26/17 07:35 05/26/17 07:35 05/26/17 07:35 Temperature -Last 24 Hours Temperature 98.8 F Temperature 98.2 F Temperature 98.1 F Temperature 98.6 F Temperature 98.0 F Temperature 98.2 F Results - Labs CBC & Chem 7: 05/26/17 06:23 05/25/17 16:08 Labs: Abnormal lab results 05/25/17 05/25/17 05/25/17 Range/Units 03:54 16:08 16:08 WBC 3.7 L (4.5-11.0) K/mm3 RBC 3.52 L (3.65-5.03) M/mm3 Hgb (10.1-14.3) gm/dl Hct (30.3-42.9) % RDW 16.6 H (13.2-15.2) % Plt Count 133 L (140-440) K/mm3 Seg Neuts % (Manual) 98.0 H (40.0-70.0) % Lymphocytes % (Manual) 0 L (13.4-35.0) % Lymphocytes # (Manual) 0.0 L (1.2-5.4) K/mm3 Sodium 135 L D (137-145) mmol/L Chloride 90.1 L (98-107) mmol/L BUN 47 H (7-17) mg/dL Creatinine 5.9 H (0.7-1.2) mg/dL Glucose 143 H (65-100) mg/dL POC Glucose (70-105) Calcium 8.2 L (8.4-10.2) mg/dL CK-MB (CK-2) (0.0-4.0) ng/mL CK-MB (CK-2) Rel Index (0-4) Troponin T (0.00-0.029) ng/mL C-Reactive Protein (0.00-1.30) mg/dL Crossmatch See Detail 05/25/17 05/25/17 05/25/17 Range/Units 16:08 16:57 18:10 WBC (4.5-11.0) K/mm3 RBC (3.65-5.03) M/mm3 Hgb 9.3 L (10.1-14.3) gm/dl Hct 27.8 L (30.3-42.9) % RDW (13.2-15.2) % Plt Count (140-440) K/mm3 Seg Neuts % (Manual) (40.0-70.0) % Lymphocytes % (Manual) (13.4-35.0) % Lymphocytes # (Manual) (1.2-5.4) K/mm3 Sodium (137-145) mmol/L Chloride (98-107) mmol/L BUN (7-17) mg/dL Creatinine (0.7-1.2) mg/dL Glucose (65-100) mg/dL POC Glucose 139 H (70-105) Calcium (8.4-10.2) mg/dL CK-MB (CK-2) 4.4 H (0.0-4.0) ng/mL CK-MB (CK-2) Rel Index 4.5 H (0-4) Troponin T 0.349 H* (0.00-0.029) ng/mL C-Reactive Protein (0.00-1.30) mg/dL Crossmatch 05/25/17 05/26/17 05/26/17 Range/Units 21:26 06:14 10:05 WBC (4.5-11.0) K/mm3 RBC (3.65-5.03) M/mm3 Hgb (10.1-14.3) gm/dl Hct (30.3-42.9) % RDW (13.2-15.2) % Plt Count (140-440) K/mm3 Seg Neuts % (Manual) (40.0-70.0) % Lymphocytes % (Manual) (13.4-35.0) % Lymphocytes # (Manual) (1.2-5.4) K/mm3 Sodium (137-145) mmol/L Chloride (98-107) mmol/L BUN (7-17) mg/dL Creatinine (0.7-1.2) mg/dL Glucose (65-100) mg/dL POC Glucose 130 H 111 H (70-105) Calcium (8.4-10.2) mg/dL CK-MB (CK-2) (0.0-4.0) ng/mL CK-MB (CK-2) Rel Index (0-4) Troponin T (0.00-0.029) ng/mL C-Reactive Protein 6.70 H (0.00-1.30) mg/dL Crossmatch Assessment and Plan Assessment: 1) Pancytopenia: no evidence of fever so far. DDx: HIV induced versus opportunistic infections 2) HIV infection of unclear duration 3) Right pleural effusion/Right sided body edema/anasarca-likely positional - CT showed extensive ascites with moderate to large right pleural effusion associated with a right lower lobe infiltrate versus atelectasis. 4) ESRD on HD 5) CAD S/P Stent Placement CT of the head showed generalized brain atrophy and right sphenoidal sinusitis. Plan: -obtain C-reactive protein (CRP) -check CD4, HIV-viral load, genotype -consider diagnostic thoracentesis -Cryptococcal serum antigen -AFB-blood cultures to r/o MAC Thank you Dr Barnes for your consultation, will follow up with you. Elizabeth Sheikh MD Infectious Diseases Specialist [facility] ([facility] M [phone] O [phone]
--- NOTE | 2017-05-26 15:05 | Consultation ---
History of Present Illness Consult date: 05/26/17 Requesting physician: ROS HENNESSY Reason for consult: pleural effusion History of present illness: 41 yo extremely poor historian, presented due to generalized body swelling after missing multiple sessions of dialysis. Has had increased SOB but denies chest pain, fevers, chills, cough, sputum, hemoptysis. Has hx of HIV, not on HAART. Active Medications Acetaminophen (Tylenol) 650 mg PO Q4H PRN PRN Reason: Pain MILD(1-3)/Fever >100.5/DUNAWAY Last Admin: 05/25/17 21:11 Dose: 650 mg Amlodipine Besylate (Norvasc) 10 mg PO QDAY [facility] Last Admin: 05/25/17 15:39 Dose: 10 mg Bisacodyl (Dulcolax) 10 mg [place] QDAY PRN PRN Reason: Constipation unrelieved by MOM Epoetin Demar (Epogen) 20,000 unit IV STEPHAN [facility] Stop: 06/01/17 11:59 Hydralazine HCl (Apresoline) 20 mg IV Q4HR PRN PRN Reason: Blood Pressure Last Admin: 05/26/17 06:04 Dose: 20 mg Hydralazine HCl (Apresoline) 100 mg PO TID [facility] Last Admin: 05/26/17 08:13 Dose: 100 mg Hydromorphone HCl (Dilaudid) 1 mg IV Q4H PRN PRN Reason: Pain , Severe (7-10) Last Admin: 05/26/17 08:13 Dose: 1 mg Sodium Chloride (Nacl 0.9%) 100 mls @ 999 mls/hr IV STEPHAN PRN PRN Reason: Hypotension Magnesium Hydroxide (Milk Of Magnesia) 30 ml PO Q4H PRN PRN Reason: Constipation Metoprolol Tartrate (Lopressor) 50 mg PO BID [facility] Last Admin: 05/25/17 21:11 Dose: 50 mg Ondansetron HCl (Zofran) 4 mg IV Q8H PRN PRN Reason: N/V unrelieved by Reglan Last Admin: 05/25/17 15:10 Dose: 4 mg Past History Past Medical History: dialysis, ESRD, HIV/AIDS, hypertension, seizures Past Surgical History: appendectomy Social history: single. denies: smoking, alcohol abuse, prescription drug abuse Family history: hypertension Medications and Allergies Allergies Allergy/AdvReac Type Severity Reaction Status Date / Time ascorbic acid Allergy Hives Verified 05/24/17 16:38 [From Ferotrinsic] ferrous fumarate Allergy Hives Verified 05/24/17 16:38 [From Ferotrinsic] folic acid [From Ferotrinsic] Allergy Hives Verified 05/24/17 16:38 oxycodone Allergy Hives Verified 05/24/17 16:38 tramadol Allergy Hives Verified 05/24/17 16:38 vitamin B12 with intrinsic Allergy Hives Verified 05/24/17 16:38 factor [From Ferotrinsic] Home Medications Medication Instructions Recorded Confirmed Last Taken Type Aspirin EC [Aspirin Enteric Coated 81 mg PO QDAY 05/25/17 05/25/17 Unknown History TAB] Carvedilol [Coreg] 25 mg PO BID 05/25/17 05/25/17 Unknown History Cholestyramine (with Sugar) 1 packet PO BID 05/25/17 05/25/17 Unknown History [Questran] Docusate Sodium [Colace CAP] 100 mg PO Q12H PRN 05/25/17 05/25/17 Unknown History FLUoxetine [Prozac] 5 ml PO QDAY 05/25/17 05/25/17 Unknown History Ferrous Sulfate [Iron] 325 mg PO QDAY 05/25/17 05/25/17 Unknown History HYDROcodone/APAP 10-325 [[place] 1 tab PO Q6H PRN 05/25/17 05/25/17 Unknown History 10-325 mg TAB] Hydralazine HCl [Hydralazine HCl] 50 mg PO TID 05/25/17 05/25/17 Unknown History Lactulose [Constulose] 30 ml PO TID 05/25/17 05/25/17 Unknown History Lisinopril [Zestril] 20 mg PO QDAY 05/25/17 05/25/17 Unknown History Nut.tx.imp.renal Fxn,Lac-Reduc 1 can PO QDAY 05/25/17 05/25/17 Unknown History [Nepro Carb Steady] Pantoprazole Sodium [Pantoprazole 40 mg PO QAM 05/25/17 05/25/17 Unknown History Sodium] Pravastatin Sodium [Pravastatin] 10 mg PO QHS 05/25/17 05/25/17 Unknown History cloNIDine [Catapres] 0.2 mg PO TID 05/25/17 05/25/17 Unknown History levETIRAcetam [Keppra TAB] 500 mg PO BID 05/25/17 05/25/17 Unknown History traZODone [Desyrel] 50 mg PO QHS PRN 05/25/17 05/25/17 Unknown History Active Meds: Active Medications Acetaminophen (Tylenol) 650 mg PO Q4H PRN PRN Reason: Pain MILD(1-3)/Fever >100.5/DUNAWAY Last Admin: 05/25/17 21:11 Dose: 650 mg Amlodipine Besylate (Norvasc) 10 mg PO QDAY [facility] Last Admin: 05/25/17 15:39 Dose: 10 mg Bisacodyl (Dulcolax) 10 mg [place] QDAY PRN PRN Reason: Constipation unrelieved by MOM Epoetin Demar (Epogen) 20,000 unit IV STEPHAN [facility] Stop: 06/01/17 11:59 Hydralazine HCl (Apresoline) 20 mg IV Q4HR PRN PRN Reason: Blood Pressure Last Admin: 05/26/17 06:04 Dose: 20 mg Hydralazine HCl (Apresoline) 100 mg PO TID [facility] Last Admin: 05/26/17 08:13 Dose: 100 mg Hydromorphone HCl (Dilaudid) 1 mg IV Q4H PRN PRN Reason: Pain , Severe (7-10) Last Admin: 05/26/17 08:13 Dose: 1 mg Sodium Chloride (Nacl 0.9%) 100 mls @ 999 mls/hr IV STEPHAN PRN PRN Reason: Hypotension Magnesium Hydroxide (Milk Of Magnesia) 30 ml PO Q4H PRN PRN Reason: Constipation Metoprolol Tartrate (Lopressor) 50 mg PO BID [facility] Last Admin: 05/25/17 21:11 Dose: 50 mg Ondansetron HCl (Zofran) 4 mg IV Q8H PRN PRN Reason: N/V unrelieved by Reglan Last Admin: 05/25/17 15:10 Dose: 4 mg Review of Systems All systems: negative Physical Examination Vital signs: Vital Signs Temp Pulse Resp BP 98.1 F 81 18 154/90 05/24/17 16:20 05/24/17 16:20 05/24/17 16:20 05/24/17 16:20 General appearance: no acute distress, alert Eyes: non-icteric ENT: oropharynx moist Neck: supple Effort: normal Ascultation: Right: diminished breath sounds (base) Cardiovascular: regular rate and rhythm (no mrg) Gastrointestinal: normoactive bowel sounds, soft, non-tender, non-distended Integumentary: other (very dry skin) Extremities: no cyanosis, pink and warm, edema (trace bilateral LE edema) Musculoskeletal: no deformities normal mental status, non-focal exam, pupils equal and round, CN II-XII normal other (blunted affect) Results - Laboratory Findings CBC and BMP: 05/26/17 06:23 05/25/17 16:08 Abnormal lab findings: Abnormal Labs 05/24/17 05/24/17 05/24/17 16:44 16:44 20:44 WBC 2.3 L RBC 2.37 L Hgb 6.5 L Hct 20.5 L RDW 18.4 H Plt Count 136 L Seg Neuts % (Manual) 76.0 H Lymphocytes % (Manual) 5.0 L Seg Neutrophils # Man 1.7 L Lymphocytes # (Manual) 0.1 L Sodium 128 L Potassium 5.9 H Chloride 83.9 L BUN 91 H Creatinine 9.8 H Glucose 53 L POC Glucose 43 L Calcium 7.9 L Direct Bilirubin Alkaline Phosphatase CK-MB (CK-2) CK-MB (CK-2) Rel Index Troponin T 0.293 H* C-Reactive Protein Albumin Triglycerides 187 H LDL Cholesterol Direct 19 L HDL Cholesterol 39 L Crossmatch 05/25/17 05/25/17 05/25/17 01:28 03:54 06:06 WBC RBC Hgb Hct RDW Plt Count Seg Neuts % (Manual) Lymphocytes % (Manual) Seg Neutrophils # Man Lymphocytes # (Manual) Sodium Potassium Chloride BUN Creatinine Glucose POC Glucose 109 H 124 H Calcium Direct Bilirubin Alkaline Phosphatase CK-MB (CK-2) CK-MB (CK-2) Rel Index Troponin T C-Reactive Protein Albumin Triglycerides LDL Cholesterol Direct HDL Cholesterol Crossmatch See Detail 05/25/17 05/25/17 05/25/17 07:17 16:08 16:08 WBC 3.7 L RBC 3.52 L Hgb Hct RDW 16.6 H Plt Count 133 L Seg Neuts % (Manual) 98.0 H Lymphocytes % (Manual) 0 L Seg Neutrophils # Man Lymphocytes # (Manual) 0.0 L Sodium 135 L D Potassium Chloride 90.1 L BUN 47 H Creatinine 5.9 H Glucose 143 H POC Glucose Calcium 8.2 L Direct Bilirubin 0.3 H Alkaline Phosphatase 355 H CK-MB (CK-2) CK-MB (CK-2) Rel Index Troponin T C-Reactive Protein Albumin 2.6 L Triglycerides LDL Cholesterol Direct HDL Cholesterol Crossmatch 05/25/17 05/25/17 05/25/17 16:08 16:57 18:10 WBC RBC Hgb 9.3 L Hct 27.8 L RDW Plt Count Seg Neuts % (Manual) Lymphocytes % (Manual) Seg Neutrophils # Man Lymphocytes # (Manual) Sodium Potassium Chloride BUN Creatinine Glucose POC Glucose 139 H Calcium Direct Bilirubin Alkaline Phosphatase CK-MB (CK-2) 4.4 H CK-MB (CK-2) Rel Index 4.5 H Troponin T 0.349 H* C-Reactive Protein Albumin Triglycerides LDL Cholesterol Direct HDL Cholesterol Crossmatch 05/25/17 05/26/17 05/26/17 21:26 06:14 10:05 WBC RBC Hgb Hct RDW Plt Count Seg Neuts % (Manual) Lymphocytes % (Manual) Seg Neutrophils # Man Lymphocytes # (Manual) Sodium Potassium Chloride BUN Creatinine Glucose POC Glucose 130 H 111 H Calcium Direct Bilirubin Alkaline Phosphatase CK-MB (CK-2) CK-MB (CK-2) Rel Index Troponin T C-Reactive Protein 6.70 H Albumin Triglycerides LDL Cholesterol Direct HDL Cholesterol Crossmatch - Diagnostic Findings Chest x-ray: report reviewed, image reviewed (large R effusion) Assessment and Plan Imp: 1. HIV/AIDS, noncompliant with therapy per chart 2. ESRD, poorly compliant with HD 3. Anasarca 4. Pleural effusion on R, probably due to volume overload 5. Pulm HTN, likely due to volume-overload + fistula + diastolic LV dysfunction , but cannot r/o WHO group I component due to HIV 6. Pancytopenia 7. Cachexia 8. Hyperkalemia Rec: 1. Optimize volume status with HD 2. Recommend improving BP control 3. Repeat CXR in AM; if effusion not improving proceed with tap 4. SubQ heparin 5. Monitor CBC 6. F/u ID recs Plan of care reviewed with patient, she understands/agrees Thanks kindly for the consult.
[2017-05-26] MEDS: NORVASC PO SCH (15:20)
[2017-05-26] MEDS ORDERED: NACL 0.9 (PRIMING MACHINE ONLY DIALYSIS) MC ONE (21:15)
[2017-05-27] MEDS: LOPRESSOR PO SCH ×3 (01:56→22:23)
[2017-05-27] MEDS: HEPARIN SUB-Q SCH ×4 (01:59→22:27)
[2017-05-27 06:04] LABS: INR 1.27 (0.87-1.13)
[2017-05-27] MEDS: DILAUDID IV PRN ×4 (07:14→22:21)
--- NOTE | 2017-05-27 07:51 | XRay Report ---
CHEST XRAY, 2 VIEWS: History: Pleural effusion. Findings: The large right pleural effusion has decreased by 25-50% since 05/24/17. Large areas of compressive atelectasis remain throughout the inferior right lung. The left lung is generally clear. Mild improvement in cardiomegaly and pulmonary venous congestion is noted. IMPRESSION: Improvement in CHF as described.
[2017-05-27] MEDS: APRESOLINE PO SCH ×3 (09:58→20:31)
[2017-05-27] MEDS: NORVASC PO SCH (09:58)
[2017-05-27] MEDS: APRESOLINE IV PRN (10:02)
[2017-05-27] MEDS: TYLENOL PO PRN (10:07)
--- NOTE | 2017-05-27 10:32 | Progress Note ---
Assessment and Plan 41 y/o F with 1. ESRD on HD 2. Anemia -> chronic with possible superimposed GI source 3. Cirrhosis with Ascites 4. Abdominal pain 5. HIV 6. HTN 7. elevated Troponin 8. pleural effusion 9. malnutrition 10. hyperkalemia Plan: 1. adv to renal, soft diet 2. for paracentesis today 3. nausea and pain control prn 4. continue wound care per wound care nurse 5. HD per nephro 6. continue meds for HTN 7. nutrition c/s pending Subjective Date of service: 05/27/17 Narrative: Pt seen and examined. c/o L sided abdominal pain today. No n/v reported per nursing notes. Tolerated minimal clear liquids per nursing yesterday. No f/c, cp Objective Vital Signs - 12hr 05/26/17 05/26/17 05/26/17 22:45 23:00 23:15 Temperature Pulse Rate 80 79 78 Respiratory Rate Blood Pressure 176/112 181/105 184/100 Blood Pressure [Left] O2 Sat by Pulse Oximetry 05/26/17 05/27/17 05/27/17 23:35 00:58 01:56 Temperature 97.7 F Pulse Rate 78 87 98 H Respiratory 20 Rate Blood Pressure 180/98 162/107 Blood Pressure 162/107 [Left] O2 Sat by Pulse 95 Oximetry 05/27/17 05/27/17 05/27/17 03:00 04:54 07:30 Temperature 98.2 F 98.7 F Pulse Rate 90 94 H Respiratory 18 19 Rate Blood Pressure 154/97 176/101 Blood Pressure [Left] O2 Sat by Pulse 95 94 96 Oximetry 05/27/17 05/27/17 05/27/17 07:44 09:58 10:02 Temperature Pulse Rate Respiratory 19 Rate Blood Pressure 202/121 202/121 Blood Pressure [Left] O2 Sat by Pulse Oximetry 05/27/17 10:07 Temperature Pulse Rate Respiratory 20 Rate Blood Pressure Blood Pressure [Left] O2 Sat by Pulse Oximetry - General physical appearance Narrative Exam: Gen: Awake and alert. NAD. Confused CV: s1, S2+ Resp: No audible wheezes Abd: soft, ND, LLQ TTP, no r/r/g. Abd dressing c/d/i Ext: no clubbing, cyanosis - Labs 05/26/17 06:23 05/25/17 16:08
--- NOTE | 2017-05-27 10:52 | Progress Note ---
Assessment and Plan Assessment: Hypertensive urgency Volume overload secondary to missed dialysis Large right-sided pleural effusion ESRD on HD Severe anemia / pancytopenia - s/p PRBC tx ? GI bleed - stool occult pending NSTEMI type II - ECG with no acute ischemic changes; pt denies chest pain Cirrhosis with ascites Hyponatremia Hyperkalemia HIV H/o seizures H/o noncompliance Malnutrition Plan: Echo reviewed - EF 50-55%, mild LVH, impaired relaxation, septal flattening of the interventricular septum c/w RV volume or pressure overload, RV mildly dilated, RA moderately dilated, mild MR, moderate to severe TR, severe pulm HTN RVSP 69mmHg, large pleural effusion. For paracentesis today. Optimize anti-hypertensive regimen. Hold ASA/DAPT in setting of severe anemia and possible GI bleed. Volume optimization and electrolyte management per nephrology/HD. Overall guarded prognosis. The patient has been seen in conjunction with Dr. Alba Atkinson who agrees with the assessment and plan of care. Subjective Date of service: 05/27/17 Principal diagnosis: anemia Interval history: pt with no current complaints. VSS. Objective Last Vital Signs Temp 98.7 F 05/27/17 07:30 Pulse 94 H 05/27/17 07:30 Resp 20 05/27/17 10:07 BP 202/121 05/27/17 10:02 Pulse Ox 96 05/27/17 07:30 - Physical Examination General: No Apparent Distress, Cachectic HEENT: Positive: PERRL Neck: Positive: neck supple, trachea midline Cardiac: Positive: Reg Rate and Rhythm, S1/S2 Lungs: Positive: clear to auscultation Neuro: Positive: Grossly Intact Abdomen: Positive: Active Bowel Sounds, Distended. Negative: Tender Skin: Positive: Clear. Negative: Rash Extremities: Present: edema (trace BLE) - Labs and Meds Coagulation 05/27/17 Range/Units 05:13 PT 16.5 H (12.2-14.9) Sec. INR 1.27 H (0.87-1.13) - Imaging and Cardiology EKG: report reviewed, image reviewed Echo: pending - EKG Sinus rhythms and dysrhythmias: sinus rhythm Repolarization changes or abnormalities: nonspecific abnormality, ST segment, and/or T wave
--- NOTE | 2017-05-27 13:02 | Progress Note ---
Assessment and Plan - Patient Problems (1) ESRD (end stage renal disease) Current Visit: Yes Status: Acute Plan to address problem: cont HD MWF, target UF 2-3 L as tolerated (2) Hyperkalemia Current Visit: Yes Status: Acute Plan to address problem: resolved with HD, cont 2g K renal diet (3) HIV (human immunodeficiency virus infection) Current Visit: Yes Status: Acute Plan to address problem: pt with h/o noncompliance with ART. follow ID recs (4) Anasarca Current Visit: Yes Status: Acute Plan to address problem: fluid removal with HD (5) Pleural effusion Current Visit: Yes Status: Acute Plan to address problem: if not improving with HD, recommend therapeutic thoracentesis (6) Cirrhosis Current Visit: Yes Status: Acute Qualifiers: Ascites presence: with ascites Plan to address problem: pt with h/o periodic paracentesis in the past, for paracentesis today. follow GI recs (7) Anemia in chronic illness Current Visit: Yes Status: Acute Plan to address problem: cont EPO [id number] with HD. Hb stable at 11.2. Subjective Date of service: 05/27/17 Principal diagnosis: anemia Interval history: pt awake alert, c/o increasing abdominal girth Objective - Vital Signs Vital signs: Vital Signs - 12hr 05/27/17 05/27/17 05/27/17 01:56 03:00 04:54 Temperature 98.2 F Pulse Rate 98 H 90 Respiratory 18 Rate Blood Pressure 162/107 154/97 O2 Sat by Pulse 95 94 Oximetry 05/27/17 05/27/17 05/27/17 07:30 07:44 09:58 Temperature 98.7 F Pulse Rate 94 H Respiratory 19 19 Rate Blood Pressure 176/101 202/121 O2 Sat by Pulse 96 Oximetry 05/27/17 05/27/17 10:02 10:07 Temperature Pulse Rate Respiratory 20 Rate Blood Pressure 202/121 O2 Sat by Pulse Oximetry - General Appearance General appearance: cachectic, chronically ill, frail EENT: ATNC, PERRL, mucous membranes moist Neck: no JVD Respiratory: Present: Decreased Breath Sounds Cardiology: regular, S1S2 Gastrointestinal: normoactive bowel sounds, distended Integumentary: no rash, other (no edema ) Neurologic: no focal deficit, alert and oriented x3, strength 5/5, CN 3-12 intact Psychiatric: mood/affect appropriate, cooperative - Lab 05/26/17 06:23 05/25/17 16:08 Most recent lab results Calcium 8.2 mg/dL (8.4-10.2) L 05/25/17 16:08
[2017-05-27] MEDS ORDERED: NORMODYNE IV PRN (14:45)
--- NOTE | 2017-05-27 15:09 | Progress Note ---
Assessment and Plan Assessment: 1) Pancytopenia: no evidence of fever so far. DDx: HIV induced versus opportunistic infections. CRP=6.7 2) HIV infection of unclear duration 3) Right pleural effusion/Right sided body edema/anasarca-likely positional - CT showed extensive ascites with moderate to large right pleural effusion associated with a right lower lobe infiltrate versus atelectasis. 4) ESRD on HD 5) CAD S/P Stent Placement CT of the head showed generalized brain atrophy and right sphenoidal sinusitis. 6) Abdominal pain/N/V: CT showed extensive ascitis and GB stones ?? SBP Plan: -to paracenthesis today r/o SBP -follow-up CD4, HIV-viral load, genotype, AFB-blood cultures to r/o MAC -add bactrim DS 3 times a week for PJP prophylaxis Thank you Dr Gomez for your consultation, will follow up with you. Elizabeth Sheikh MD Infectious Diseases Specialist [facility] ([facility]) M [phone] O [phone] Subjective Date of service: 05/27/17 Principal diagnosis: anemia Interval history: Feels the same still c/o abdominal pain, N/V. Reports some diarrhea. No fever. Microbiology: Crypto serum ag negative Current Antimicrobials: none Previous Antimicrobials: Objective - Exam Narrative Exam: General appearance: Alert in NAD, cachectic, disheveled. Eyes: anicteric sclerae, moist conjunctivae; no lid-lag; PERRLA HENT: Atraumatic; oropharynx +thrush Neck: Trachea midline; supple, no thyromegaly or lymphadenopathy Lungs: CTA CV: RRR, no murmurs Abdomen: Soft, distended, marked ventral hernia with superficial skin tears Extremities: No peripheral edema or extremity lymphadenopathy Skin: marked right arm edema with pronounced AVF Psych: anxious Neuro: alert and oriented x 3. Moving all extermities Lines: No CVL / PICC - Constitutional Vitals: Vital Signs Temp Pulse Resp BP Pulse Ox 98.7 F 94 H 20 202/121 96 05/27/17 07:30 05/27/17 07:30 05/27/17 10:07 05/27/17 10:02 05/27/17 07:30 Temperature -Last 24 Hours Temperature 98.7 F Temperature 98.2 F Temperature 97.7 F Temperature 97.3 F Temperature 97.3 F Temperature 97.3 F - Labs CBC & Chem 7: 05/26/17 06:23 05/25/17 16:08 Labs: Abnormal lab results 05/27/17 05/27/17 Range/Units 05:13 05:56 PT 16.5 H (12.2-14.9) Sec. INR 1.27 H (0.87-1.13) POC Glucose 68 L (70-105)
--- NOTE | 2017-05-27 15:26 | Procedure Note ---
Date of procedure: 05/27/17 Pre-op diagnosis: ascites Post-op diagnosis: other (loculated ascites) Procedure: US paracentesis Findings: multiple locules of fluid throughout abdomen Anesthesia: local Surgeon: DREW FLOWERS Estimated blood loss: none Pathology: list (120cc) Specimen disposition: to lab Condition: stable Disposition: floor
--- NOTE | 2017-05-27 15:31 | Ultrasound Report ---
ULTRASOUND PARACENTESIS History: Ascites. Findings: Informed consent was obtained. Sterile technique was utilized. CT abdomen and pelvis scan performed 05/24/17 was reviewed. Initial scan on ultrasound demonstrated scattered locules of fluid throughout the abdomen. Most of the locules are not accessible for ultrasound-guided aspiration. One loculated fluid collection lateral to the liver measuring up to 8 x 4 cm was accessible. Using sterile technique and ultrasound guidance, a 5 [place] centesis needle was advanced to the central portions of this collection. 120 cc of clear yellow fluid was collected and sent to lab for analysis. Impression: Successful ultrasound-guided aspiration of one loculated fluid collection lateral to the liver. No free-flowing ascites. See above.
--- NOTE | 2017-05-27 16:13 | Progress Note ---
Assessment and Plan Assessment and plan: 40 year old -[place] female presented to the emergency department with complaints of missed dialysis, not feeling well, confusion. Per chart review patient had history of HIV, ESRD on hemodialysis. Patient said she presented for fluid overload Abdominal pain, anorexia and nausea GI input appreciated, advance diet as tolerated. Fluid overload secondary to missed dialysis continue HD counseled on improved compliance Hyperkalemia Has now resolved with dialysis ESRD on hemodialysis Nephrology consulted and patient had hemodialysis Severe Anemia transfused 3 units of blood, with a posttransfusion H&H GI input appreciated "Anemia - unknown baseline, along with pancytopenia. repeat labs pending. difficult to obtain history from pt regarding signs of overt bleeding. Start IV PPI and octreotide if any signs of bleeding develops. EGD if signs of overt bleeding and based on clinical course/progress. Cirrhosis with ascites - unclear etiology, + ascites, ammonia wnl; check viral hep serologies and diagnostic tap if feasible by IR. avoid sedating medications. " Status post paracentesis which only shows transudate Type II AR Manage comorbidities, no further workup indicated Abdominal wound and right buttock ulcer Present on admission, continue wound care HIV infection Case discussed with infectious disease consultants Continue Bactrim for PJP prophylaxis, follow-up CD4 and viral load. Id consult appreciated Severe malnutrition We'll consult nutrition, encourage increased by mouth intake Debility We'll obtain PT consults History Interval history: She still complaining of abdominal pain and she eats, poor appetite. Occasional nausea. Review of systems Constitutional: No fevers, complaining of generalized weakness CVS: No chest pain, no orthopnea, no dyspnea on exertion, no pedal edema GI: Abdominal pain, nausea, anorexia Respiratory: No shortness of breath, no wheezing, no coughing Hospitalist Physical - Physical exam Narrative exam: General.: Appears chronically ill cachetic HEENT: Moist mucous membranes, extraocular muscles intact, no lymphadenopathy Neck: supple Cardiac: S1-S2 heard Lungs: clear to auscultation bilaterally Abdomen: soft , nontender, nondistended, bowel sounds positive Extremities: no edema clubbing or cyanosis Skin: Abdominal wounds noted, no odor or drainage Right gluteal fold wound, no drainage or order presents Neurologic: no gross focal deficits Psych: appropriate behavior, appropriate mood, corporative, judgment intact - Constitutional Vitals: Temp Pulse Resp BP Pulse Ox 98.7 F 94 H 20 202/121 96 05/27/17 07:30 05/27/17 07:30 05/27/17 10:07 05/27/17 10:02 05/27/17 07:30 General appearance: Present: no acute distress, cachectic, other (lethargic) Results - Labs CBC & Chem 7: 05/26/17 06:23 05/25/17 16:08 Labs: Laboratory Last Values WBC 3.7 K/mm3 (4.5-11.0) L 05/25/17 16:08 RBC 3.52 M/mm3 (3.65-5.03) L 05/25/17 16:08 Hgb 11.3 gm/dl (10.1-14.3) 05/26/17 06:23 Hct 33.5 % (30.3-42.9) 05/26/17 06:23 MCV 87 fl (79-97) 05/25/17 16:08 MCH 30 pg (28-32) 05/25/17 16:08 MCHC 34 % (30-34) 05/25/17 16:08 RDW 16.6 % (13.2-15.2) H 05/25/17 16:08 Plt Count 133 K/mm3 (140-440) L 05/25/17 16:08 Add Manual Diff Complete 05/25/17 16:08 Total Counted 100 05/25/17 16:08 Seg Neutrophils % Intermediate Card Tender 05/25/17 16:08 Seg Neuts % (Manual) 98.0 % (40.0-70.0) H 05/25/17 16:08 Band Neutrophils % 0 % 05/25/17 16:08 Lymphocytes % (Manual) 0 % (13.4-35.0) L 05/25/17 16:08 Reactive Lymphs % (Man) 0 % 05/25/17 16:08 Monocytes % (Manual) 2.0 % (0.0-7.3) 05/25/17 16:08 Eosinophils % (Manual) 0 % (0.0-4.3) 05/25/17 16:08 Basophils % (Manual) 0 % (0.0-1.8) 05/25/17 16:08 Metamyelocytes % 0 % 05/25/17 16:08 Myelocytes % 0 % 05/25/17 16:08 Promyelocytes % 0 % 05/25/17 16:08 Blast Cells % 0 % 05/25/17 16:08 Nucleated RBC % Not Reportable 05/25/17 16:08 Seg Neutrophils # Man 3.6 K/mm3 (1.8-7.7) 05/25/17 16:08 Band Neutrophils # 0.0 K/mm3 05/25/17 16:08 Lymphocytes # (Manual) 0.0 K/mm3 (1.2-5.4) L 05/25/17 16:08 Abs React Lymphs (Man) 0.0 K/mm3 05/25/17 16:08 Monocytes # (Manual) 0.1 K/mm3 (0.0-0.8) 05/25/17 16:08 Eosinophils # (Manual) 0.0 K/mm3 (0.0-0.4) 05/25/17 16:08 Basophils # (Manual) 0.0 K/mm3 (0.0-0.1) 05/25/17 16:08 Metamyelocytes # 0.0 K/mm3 05/25/17 16:08 Myelocytes # 0.0 K/mm3 05/25/17 16:08 Promyelocytes # 0.0 K/mm3 05/25/17 16:08 Blast Cells # 0.0 K/mm3 05/25/17 16:08 WBC Morphology Not Reportable 05/25/17 16:08 Hypersegmented Neuts Not Reportable 05/25/17 16:08 Hyposegmented Neuts Not Reportable 05/25/17 16:08 Hypogranular Neuts Not Reportable 05/25/17 16:08 Smudge Cells Not Reportable 05/25/17 16:08 Toxic Granulation Not Reportable 05/25/17 16:08 Toxic Vacuolation Not Reportable 05/25/17 16:08 Dohle Bodies Not Reportable 05/25/17 16:08 Pelger-Huet Anomaly Not Reportable 05/25/17 16:08 Ruben Rods Not Reportable 05/25/17 16:08 Platelet Estimate Consistent w auto 05/25/17 16:08 Clumped Platelets Not Reportable 05/25/17 16:08 Plt Clumps, EDTA Not Reportable 05/25/17 16:08 Large Platelets Not Reportable 05/25/17 16:08 Giant Platelets Not Reportable 05/25/17 16:08 Platelet Satelliting Not Reportable 05/25/17 16:08 Plt Morphology Comment Not Reportable 05/25/17 16:08 RBC Morphology Not Reportable 05/25/17 16:08 Dimorphic RBCs Not Reportable 05/25/17 16:08 Polychromasia Not Reportable 05/25/17 16:08 Hypochromasia Not Reportable 05/25/17 16:08 Poikilocytosis 1+ 05/25/17 16:08 Anisocytosis 2+ 05/25/17 16:08 Microcytosis Not Reportable 05/25/17 16:08 Macrocytosis Not Reportable 05/25/17 16:08 Spherocytes Not Reportable 05/25/17 16:08 Pappenheimer Bodies Not Reportable 05/25/17 16:08 Sickle Cells Not Reportable 05/25/17 16:08 Target Cells Not Reportable 05/25/17 16:08 Tear Drop Cells Not Reportable 05/25/17 16:08 Ovalocytes Not Reportable 05/25/17 16:08 Helmet Cells Not Reportable 05/25/17 16:08 Oconnor-Crayne Bodies Not Reportable 05/25/17 16:08 [place] Rings Not Reportable 05/25/17 16:08 Nell Cells Not Reportable 05/25/17 16:08 Bite Cells Not Reportable 05/25/17 16:08 Crenated Cell Not Reportable 05/25/17 16:08 Elliptocytes Few 05/25/17 16:08 Acanthocytes (Spur) Not Reportable 05/25/17 16:08 Rouleaux Not Reportable 05/25/17 16:08 Hemoglobin C Crystals Not Reportable 05/25/17 16:08 Schistocytes Not Reportable 05/25/17 16:08 Malaria parasites Not Reportable 05/25/17 16:08 Rick Bodies Not Reportable 05/25/17 16:08 Hem Pathologist Commnt No 05/25/17 16:08 PT 16.5 Sec. (12.2-14.9) H 05/27/17 05:13 INR 1.27 (0.87-1.13) H 05/27/17 05:13 Sodium 135 mmol/L (137-145) L D 05/25/17 16:08 Potassium 4.1 mmol/L (3.6-5.0) D 05/25/17 16:08 Chloride 90.1 mmol/L (98-107) L 05/25/17 16:08 Carbon Dioxide 23 mmol/L (22-30) 05/25/17 16:08 Anion Gap 26 mmol/L 05/25/17 16:08 BUN 47 mg/dL (7-17) H 05/25/17 16:08 Creatinine 5.9 mg/dL (0.7-1.2) H 05/25/17 16:08 Estimated GFR 9 ml/min 05/25/17 16:08 BUN/Creatinine Ratio 8 % 05/25/17 16:08 Glucose 143 mg/dL (65-100) H 05/25/17 16:08 POC Glucose 68 (70-105) L 05/27/17 05:56 Calcium 8.2 mg/dL (8.4-10.2) L 05/25/17 16:08 Total Bilirubin 0.50 mg/dL (0.1-1.2) 05/25/17 07:17 Direct Bilirubin 0.3 mg/dL (0-0.2) H 05/25/17 07:17 Indirect Bilirubin 0.2 mg/dL 05/25/17 07:17 AST 17 units/L (5-40) 05/25/17 07:17 ALT 7 units/L (7-56) 05/25/17 07:17 Alkaline Phosphatase 355 units/L (35-129) H 05/25/17 07:17 Ammonia 26.0 umol/L (25-60) 05/25/17 07:18 Total Creatine Kinase 97 units/L (30-135) 05/25/17 16:08 CK-MB (CK-2) 4.4 ng/mL (0.0-4.0) H 05/25/17 16:08 CK-MB (CK-2) Rel Index 4.5 (0-4) H 05/25/17 16:08 Troponin T 0.349 ng/mL (0.00-0.029) H* 05/25/17 16:08 C-Reactive Protein 6.70 mg/dL (0.00-1.30) H 05/26/17 10:05 Total Protein 6.9 g/dL (6.3-8.2) 05/25/17 07:17 Albumin 2.6 g/dL (3.9-5) L 05/25/17 07:17 Albumin/Globulin Ratio 0.6 % 05/25/17 07:17 Triglycerides 187 mg/dL (2-149) H 05/24/17 16:44 Cholesterol 95 mg/dL (50-199) 05/24/17 16:44 LDL Cholesterol Direct 19 mg/dL (50-130) L 05/24/17 16:44 HDL Cholesterol 39 mg/dL (40-59) L 05/24/17 16:44 Cholesterol/HDL Ratio 2.43 % 05/24/17 16:44 Hepatitis A IgM Ab Non-reactive (NonReactive) 05/26/17 11:24 Hep B Core IgM Ab Non-reactive (NonReactive) 05/26/17 11:24 Hepatitis C Antibody Non-reactive (NonReactive) 05/26/17 11:24 HIV 1&2 Antibody Rapid Reactive (Non React) 05/25/17 16:08 HIV P24 Antigen Non react (Non React) 05/25/17 16:08 Blood Type A POSITIVE 05/25/17 03:54 Antibody Screen Negative 05/25/17 03:54 Crossmatch See Detail 05/25/17 03:54
--- NOTE | 2017-05-27 16:14 | Progress Note ---
Assessment and Plan Imp: 1. HIV/AIDS, noncompliant with therapy per chart 2. ESRD, poorly compliant with HD 3. Anasarca 4. Pleural effusion on R, probably due to volume overload 5. Pulm HTN, likely due to volume-overload + fistula + diastolic LV dysfunction , but cannot r/o WHO group I component due to HIV 6. Pancytopenia 7. Cachexia 8. Hyperkalemia Rec: 1. Optimize volume status with HD 2. Recommend improving BP control 3. CXR shows improving effusion after HD; will cont. to monitor for radiographic resolution 4. SubQ heparin 5. Monitor CBC 6. F/u ID recs Plan of care reviewed with patient, she understands/agrees Subjective Date of service: 05/27/17 Principal diagnosis: anemia Interval history: No events. Had paracentesis today with only 120cc removed b/c apparently "loculated". Poor historian. + SOB and abd pain per patient. Active Medications Acetaminophen (Tylenol) 650 mg PO Q4H PRN PRN Reason: Pain MILD(1-3)/Fever >100.5/DUNAWAY Last Admin: 05/27/17 10:07 Dose: 650 mg Amlodipine Besylate (Norvasc) 10 mg PO QDAY [facility] Last Admin: 05/27/17 09:58 Dose: 10 mg Atorvastatin Calcium (Lipitor) 10 mg PO QHS KATHARINA Bisacodyl (Dulcolax) 10 mg DC QDAY PRN PRN Reason: Constipation unrelieved by MOM Epoetin Demar (Epogen) 20,000 unit IV STEPHAN [facility] Stop: 06/01/17 11:59 Heparin Sodium (Porcine) (Heparin) 5,000 unit SUB-Q Q8HR [facility] Last Admin: 05/27/17 06:14 Dose: 5,000 unit Hydralazine HCl (Apresoline) 20 mg IV Q4HR PRN PRN Reason: Blood Pressure Last Admin: 05/27/17 10:02 Dose: 20 mg Hydralazine HCl (Apresoline) 100 mg PO TID [facility] Last Admin: 05/27/17 09:58 Dose: 100 mg Hydromorphone HCl (Dilaudid) 1 mg IV Q4H PRN PRN Reason: Pain , Severe (7-10) Last Admin: 05/27/17 12:02 Dose: 1 mg Sodium Chloride (Nacl 0.9%) 100 mls @ 999 mls/hr IV STEPHAN PRN PRN Reason: Hypotension Labetalol HCl (Normodyne) 20 mg IV Q4H PRN PRN Reason: BP > 160/100 Magnesium Hydroxide (Milk Of Magnesia) 30 ml PO Q4H PRN PRN Reason: Constipation Metoprolol Tartrate (Lopressor) 50 mg PO BID KATHARINA Last Admin: 05/27/17 09:58 Dose: 50 mg Ondansetron HCl (Zofran) 4 mg IV Q8H PRN PRN Reason: N/V unrelieved by Reglan Last Admin: 05/25/17 15:10 Dose: 4 mg Objective Vital Signs - 12hr 05/27/17 05/27/17 05/27/17 04:54 07:30 07:44 Temperature 98.2 F 98.7 F Pulse Rate 90 94 H Respiratory 18 19 19 Rate Blood Pressure 154/97 176/101 O2 Sat by Pulse 94 96 Oximetry 05/27/17 05/27/17 05/27/17 09:58 10:02 10:07 Temperature Pulse Rate Respiratory 20 Rate Blood Pressure 202/121 202/121 O2 Sat by Pulse Oximetry Constitutional: no acute distress, alert Eyes: non-icteric ENT: oropharynx moist Neck: supple Effort: normal Ascultation: Right: diminished breath sounds (base) Cardiovascular: regular rate and rhythm (no mrg) Gastrointestinal: normoactive bowel sounds, soft, non-tender, non-distended Integumentary: other (very dry skin) Extremities: no cyanosis, pink and warm, edema (trace bilateral LE edema) Neurologic: normal mental status, non-focal exam, pupils equal and round, CN II- XII normal Psychiatric: other (blunted affect) CBC and BMP: 05/26/17 06:23 05/25/17 16:08 ABG, PT/INR, D-dimer: PT/INR, D-dimer PT 16.5 Sec. (12.2-14.9) H 05/27/17 05:13 INR 1.27 (0.87-1.13) H 05/27/17 05:13 Abnormal lab findings: Abnormal Labs 05/24/17 05/24/17 05/24/17 16:44 16:44 20:44 WBC 2.3 L RBC 2.37 L Hgb 6.5 L Hct 20.5 L RDW 18.4 H Plt Count 136 L Seg Neuts % (Manual) 76.0 H Lymphocytes % (Manual) 5.0 L Seg Neutrophils # Man 1.7 L Lymphocytes # (Manual) 0.1 L PT INR Sodium 128 L Potassium 5.9 H Chloride 83.9 L BUN 91 H Creatinine 9.8 H Glucose 53 L POC Glucose 43 L Calcium 7.9 L Direct Bilirubin Alkaline Phosphatase CK-MB (CK-2) CK-MB (CK-2) Rel Index Troponin T 0.293 H* C-Reactive Protein Albumin Triglycerides 187 H LDL Cholesterol Direct 19 L HDL Cholesterol 39 L Crossmatch 05/25/17 05/25/17 05/25/17 01:28 03:54 06:06 WBC RBC Hgb Hct RDW Plt Count Seg Neuts % (Manual) Lymphocytes % (Manual) Seg Neutrophils # Man Lymphocytes # (Manual) PT INR Sodium Potassium Chloride BUN Creatinine Glucose POC Glucose 109 H 124 H Calcium Direct Bilirubin Alkaline Phosphatase CK-MB (CK-2) CK-MB (CK-2) Rel Index Troponin T C-Reactive Protein Albumin Triglycerides LDL Cholesterol Direct HDL Cholesterol Crossmatch See Detail 05/25/17 05/25/17 05/25/17 07:17 16:08 16:08 WBC 3.7 L RBC 3.52 L Hgb Hct RDW 16.6 H Plt Count 133 L Seg Neuts % (Manual) 98.0 H Lymphocytes % (Manual) 0 L Seg Neutrophils # Man Lymphocytes # (Manual) 0.0 L PT INR Sodium 135 L D Potassium Chloride 90.1 L BUN 47 H Creatinine 5.9 H Glucose 143 H POC Glucose Calcium 8.2 L Direct Bilirubin 0.3 H Alkaline Phosphatase 355 H CK-MB (CK-2) CK-MB (CK-2) Rel Index Troponin T C-Reactive Protein Albumin 2.6 L Triglycerides LDL Cholesterol Direct HDL Cholesterol Crossmatch 05/25/17 05/25/17 05/25/17 16:08 16:57 18:10 WBC RBC Hgb 9.3 L Hct 27.8 L RDW Plt Count Seg Neuts % (Manual) Lymphocytes % (Manual) Seg Neutrophils # Man Lymphocytes # (Manual) PT INR Sodium Potassium Chloride BUN Creatinine Glucose POC Glucose 139 H Calcium Direct Bilirubin Alkaline Phosphatase CK-MB (CK-2) 4.4 H CK-MB (CK-2) Rel Index 4.5 H Troponin T 0.349 H* C-Reactive Protein Albumin Triglycerides LDL Cholesterol Direct HDL Cholesterol Crossmatch 05/25/17 05/26/17 05/26/17 21:26 06:14 10:05 WBC RBC Hgb Hct RDW Plt Count Seg Neuts % (Manual) Lymphocytes % (Manual) Seg Neutrophils # Man Lymphocytes # (Manual) PT INR Sodium Potassium Chloride BUN Creatinine Glucose POC Glucose 130 H 111 H Calcium Direct Bilirubin Alkaline Phosphatase CK-MB (CK-2) CK-MB (CK-2) Rel Index Troponin T C-Reactive Protein 6.70 H Albumin Triglycerides LDL Cholesterol Direct HDL Cholesterol Crossmatch 05/27/17 05/27/17 05:13 05:56 WBC RBC Hgb Hct RDW Plt Count Seg Neuts % (Manual) Lymphocytes % (Manual) Seg Neutrophils # Man Lymphocytes # (Manual) PT 16.5 H INR 1.27 H Sodium Potassium Chloride BUN Creatinine Glucose POC Glucose 68 L Calcium Direct Bilirubin Alkaline Phosphatase CK-MB (CK-2) CK-MB (CK-2) Rel Index Troponin T C-Reactive Protein Albumin Triglycerides LDL Cholesterol Direct HDL Cholesterol Crossmatch Chest x-ray: report reviewed, image reviewed (improving R effusion)
[2017-05-27 16:54] LABS: Basophils Body Fluid 0 %; Eosinophils Body Fluid 0 %; Lymphocytes BF 2 %; Monocytes Body Fluid 3 %; Reactive Lymph Body Fluid 0 %; Seg Neutrophils Body Fluid 0 %
[2017-05-28] MEDS: DILAUDID IV PRN ×4 (02:20→22:58)
[2017-05-28] MEDS: HEPARIN SUB-Q SCH ×3 (06:09→21:48)
--- NOTE | 2017-05-28 11:03 | Progress Note ---
Assessment and Plan Assessment: Hypertensive urgency - improving Volume overload secondary to missed dialysis Large right-sided pleural effusion ESRD on HD Severe anemia / pancytopenia - s/p PRBC tx ? GI bleed NSTEMI type II - ECG with no acute ischemic changes; pt denies chest pain Cirrhosis with ascites Hyponatremia Hyperkalemia HIV H/o seizures H/o noncompliance Malnutrition Severe pulmonary HTN Moderate to severe TR Plan: Volume optimization and electrolyte management per nephrology/HD. Currently stable cardiac status. Consider ischemic evaluation if/when medically stabilized. Nothing further to add from cardiac perspective at this time. Will follow on as needed basis. Overall guarded prognosis. The patient has been seen in conjunction with Dr. CAREN Atkinson who agrees with the assessment and plan of care. Subjective Date of service: 05/28/17 Principal diagnosis: anemia Interval history: pt with no current complaints. VSS. Objective Last Vital Signs Temp 97.4 F L 05/28/17 08:25 Pulse 81 05/28/17 08:25 Resp 16 05/28/17 08:25 BP 102/47 05/28/17 08:25 Pulse Ox 98 05/28/17 08:25 - Physical Examination General: No Apparent Distress, Cachectic HEENT: Positive: PERRL Neck: Positive: neck supple, trachea midline Cardiac: Positive: Reg Rate and Rhythm, irregularly irregular Lungs: Positive: Decreased Breath Sounds Neuro: Positive: Grossly Intact Abdomen: Positive: Active Bowel Sounds, Distended. Negative: Tender Skin: Positive: Clear. Negative: Rash Extremities: Present: edema (trace BLE) - Imaging and Cardiology EKG: report reviewed, image reviewed Echo: pending - EKG Sinus rhythms and dysrhythmias: sinus rhythm Repolarization changes or abnormalities: nonspecific abnormality, ST segment, and/or T wave
[2017-05-28] MEDS: ZOFRAN IV PRN (12:30)
--- NOTE | 2017-05-28 12:39 | Progress Note ---
Assessment and Plan Imp: 1. HIV/AIDS, noncompliant with therapy per chart 2. ESRD, poorly compliant with HD 3. Anasarca 4. Pleural effusion on R, probably due to volume overload 5. Pulm HTN, likely due to volume-overload + fistula + diastolic LV dysfunction , but cannot r/o WHO group I component due to HIV 6. Pancytopenia 7. Cachexia 8. Hyperkalemia Rec: 1. Optimize volume status with HD 2. Recommend improving BP control 3. CXR shows improving effusion after HD; will cont. to monitor conservatively for radiographic resolution -> repeat CXR again in AM 4. SubQ heparin 5. Monitor CBC 6. F/u ID recs Plan of care reviewed with patient, she understands/agrees Subjective Date of service: 05/28/17 Principal diagnosis: anemia Interval history: No events. Poor historian. + SOB and abd pain per patient. On HD. Active Medications Acetaminophen (Tylenol) 650 mg PO Q4H PRN PRN Reason: Pain MILD(1-3)/Fever >100.5/DUNAWAY Last Admin: 05/27/17 10:07 Dose: 650 mg Atorvastatin Calcium (Lipitor) 10 mg PO QHS [facility] Last Admin: 05/27/17 22:24 Dose: 10 mg Bisacodyl (Dulcolax) 10 mg AK QDAY PRN PRN Reason: Constipation unrelieved by MOM Epoetin Demar (Epogen) 20,000 unit IV STEPHAN [facility] Stop: 06/01/17 11:59 Heparin Sodium (Porcine) (Heparin) 5,000 unit SUB-Q Q8HR [facility] Last Admin: 05/28/17 06:09 Dose: 5,000 unit Hydralazine HCl (Apresoline) 20 mg IV Q4HR PRN PRN Reason: Blood Pressure Last Admin: 05/27/17 10:02 Dose: 20 mg Hydralazine HCl (Apresoline) 100 mg PO TID [facility] Last Admin: 05/27/17 20:31 Dose: 100 mg Hydromorphone HCl (Dilaudid) 1 mg IV Q4H PRN PRN Reason: Pain , Severe (7-10) Last Admin: 05/28/17 02:20 Dose: 1 mg Sodium Chloride (Nacl 0.9%) 100 mls @ 999 mls/hr IV STEPHAN PRN PRN Reason: Hypotension Labetalol HCl (Normodyne) 20 mg IV Q4H PRN PRN Reason: BP > 160/100 Magnesium Hydroxide (Milk Of Magnesia) 30 ml PO Q4H PRN PRN Reason: Constipation Metoprolol Tartrate (Lopressor) 50 mg PO BID [facility] Last Admin: 05/27/17 22:23 Dose: 50 mg Nifedipine (Procardia Xl) 60 mg PO QDAY [facility] Ondansetron HCl (Zofran) 4 mg IV Q8H PRN PRN Reason: N/V unrelieved by Reglan Last Admin: 05/25/17 15:10 Dose: 4 mg Objective Vital Signs - 12hr 05/28/17 05/28/17 05/28/17 01:33 01:37 05:04 Temperature 97.7 F 98.4 F Pulse Rate 74 77 Respiratory 19 19 Rate Blood Pressure 149/80 152/95 O2 Sat by Pulse 89 Oximetry 05/28/17 05/28/17 05/28/17 08:19 08:25 10:35 Temperature 98.4 F 97.4 F L 98.2 F Pulse Rate 79 81 78 Respiratory 18 16 18 Rate Blood Pressure 176/108 102/47 171/106 O2 Sat by Pulse 95 98 Oximetry 05/28/17 05/28/17 05/28/17 10:45 11:00 11:15 Temperature Pulse Rate 77 77 76 Respiratory Rate Blood Pressure 178/108 178/100 189/109 O2 Sat by Pulse Oximetry 05/28/17 05/28/17 11:30 11:45 Temperature Pulse Rate 75 75 Respiratory Rate Blood Pressure 191/105 190/100 O2 Sat by Pulse Oximetry Constitutional: no acute distress, alert Eyes: non-icteric ENT: oropharynx moist Neck: supple Effort: normal Ascultation: Right: diminished breath sounds (base) Cardiovascular: regular rate and rhythm (no mrg) Gastrointestinal: normoactive bowel sounds, soft, non-tender, other (distended w / ascites) Integumentary: other (very dry skin) Extremities: no cyanosis, pink and warm, edema (trace bilateral LE edema) Neurologic: normal mental status, non-focal exam, pupils equal and round, CN II- XII normal Psychiatric: other (blunted affect) CBC and BMP: 05/26/17 06:23 05/25/17 16:08 ABG, PT/INR, D-dimer: PT/INR, D-dimer PT 16.5 Sec. (12.2-14.9) H 05/27/17 05:13 INR 1.27 (0.87-1.13) H 05/27/17 05:13 Abnormal lab findings: Abnormal Labs 05/24/17 05/24/17 05/24/17 16:44 16:44 20:44 WBC 2.3 L RBC 2.37 L Hgb 6.5 L Hct 20.5 L RDW 18.4 H Plt Count 136 L Seg Neuts % (Manual) 76.0 H Lymphocytes % (Manual) 5.0 L Seg Neutrophils # Man 1.7 L Lymphocytes # (Manual) 0.1 L PT INR Sodium 128 L Potassium 5.9 H Chloride 83.9 L BUN 91 H Creatinine 9.8 H Glucose 53 L POC Glucose 43 L Calcium 7.9 L Direct Bilirubin Alkaline Phosphatase CK-MB (CK-2) CK-MB (CK-2) Rel Index Troponin T 0.293 H* C-Reactive Protein Albumin Triglycerides 187 H LDL Cholesterol Direct 19 L HDL Cholesterol 39 L Crossmatch 05/25/17 05/25/17 05/25/17 01:28 03:54 06:06 WBC RBC Hgb Hct RDW Plt Count Seg Neuts % (Manual) Lymphocytes % (Manual) Seg Neutrophils # Man Lymphocytes # (Manual) PT INR Sodium Potassium Chloride BUN Creatinine Glucose POC Glucose 109 H 124 H Calcium Direct Bilirubin Alkaline Phosphatase CK-MB (CK-2) CK-MB (CK-2) Rel Index Troponin T C-Reactive Protein Albumin Triglycerides LDL Cholesterol Direct HDL Cholesterol Crossmatch See Detail 05/25/17 05/25/17 05/25/17 07:17 16:08 16:08 WBC 3.7 L RBC 3.52 L Hgb Hct RDW 16.6 H Plt Count 133 L Seg Neuts % (Manual) 98.0 H Lymphocytes % (Manual) 0 L Seg Neutrophils # Man Lymphocytes # (Manual) 0.0 L PT INR Sodium 135 L D Potassium Chloride 90.1 L BUN 47 H Creatinine 5.9 H Glucose 143 H POC Glucose Calcium 8.2 L Direct Bilirubin 0.3 H Alkaline Phosphatase 355 H CK-MB (CK-2) CK-MB (CK-2) Rel Index Troponin T C-Reactive Protein Albumin 2.6 L Triglycerides LDL Cholesterol Direct HDL Cholesterol Crossmatch 05/25/17 05/25/17 05/25/17 16:08 16:57 18:10 WBC RBC Hgb 9.3 L Hct 27.8 L RDW Plt Count Seg Neuts % (Manual) Lymphocytes % (Manual) Seg Neutrophils # Man Lymphocytes # (Manual) PT INR Sodium Potassium Chloride BUN Creatinine Glucose POC Glucose 139 H Calcium Direct Bilirubin Alkaline Phosphatase CK-MB (CK-2) 4.4 H CK-MB (CK-2) Rel Index 4.5 H Troponin T 0.349 H* C-Reactive Protein Albumin Triglycerides LDL Cholesterol Direct HDL Cholesterol Crossmatch 05/25/17 05/26/17 05/26/17 21:26 06:14 10:05 WBC RBC Hgb Hct RDW Plt Count Seg Neuts % (Manual) Lymphocytes % (Manual) Seg Neutrophils # Man Lymphocytes # (Manual) PT INR Sodium Potassium Chloride BUN Creatinine Glucose POC Glucose 130 H 111 H Calcium Direct Bilirubin Alkaline Phosphatase CK-MB (CK-2) CK-MB (CK-2) Rel Index Troponin T C-Reactive Protein 6.70 H Albumin Triglycerides LDL Cholesterol Direct HDL Cholesterol Crossmatch 05/27/17 05/27/17 05/27/17 05:13 05:56 11:33 WBC RBC Hgb Hct RDW Plt Count Seg Neuts % (Manual) Lymphocytes % (Manual) Seg Neutrophils # Man Lymphocytes # (Manual) PT 16.5 H INR 1.27 H Sodium Potassium Chloride BUN Creatinine Glucose POC Glucose 68 L 63 L Calcium Direct Bilirubin Alkaline Phosphatase CK-MB (CK-2) CK-MB (CK-2) Rel Index Troponin T C-Reactive Protein Albumin Triglycerides LDL Cholesterol Direct HDL Cholesterol Crossmatch Chest x-ray: report reviewed, image reviewed
--- NOTE | 2017-05-28 12:41 | Event Note ---
Date: 05/28/17 Patient is s/p paracentesis of loculated ascites yesterday. No surgical intervention planned at this time. D/W Dr. Hanson. Will sign off. Please call with questions.
[2017-05-28] MEDS ORDERED: NACL 0.9 (PRIMING MACHINE ONLY DIALYSIS) MC ONE (12:42)
--- NOTE | 2017-05-28 14:08 | Progress Note ---
Assessment and Plan - Patient Problems (1) ESRD (end stage renal disease) Current Visit: Yes Status: Acute Plan to address problem: cont HD MWF, target UF 2-3 L as tolerated (2) Hyperkalemia Current Visit: Yes Status: Acute Plan to address problem: resolved with HD, cont 2g K renal diet (3) HIV (human immunodeficiency virus infection) Current Visit: Yes Status: Acute Plan to address problem: pt with h/o noncompliance with ART. follow ID recs (4) Anasarca Current Visit: Yes Status: Acute Plan to address problem: fluid removal with HD (5) Pleural effusion Current Visit: Yes Status: Acute Plan to address problem: improved with HD (6) Cirrhosis Current Visit: Yes Status: Acute Qualifiers: Ascites presence: with ascites Plan to address problem: pt with h/o periodic paracentesis. follow GI recs (7) Anemia in chronic illness Current Visit: Yes Status: Acute Plan to address problem: cont EPO [id number] with HD. Hb stable at 11.2. Subjective Date of service: 05/28/17 Principal diagnosis: anemia Interval history: pt awake alert,improved abd pain after paracentesis Objective - Vital Signs Vital signs: Vital Signs - 12hr 05/28/17 05/28/17 05/28/17 05:04 08:19 08:25 Temperature 98.4 F 98.4 F 97.4 F L Pulse Rate 77 79 81 Respiratory 19 18 16 Rate Blood Pressure 152/95 176/108 102/47 O2 Sat by Pulse 89 95 98 Oximetry 05/28/17 05/28/17 05/28/17 10:35 10:45 11:00 Temperature 98.2 F Pulse Rate 78 77 77 Respiratory 18 Rate Blood Pressure 171/106 178/108 178/100 O2 Sat by Pulse Oximetry 05/28/17 05/28/17 05/28/17 11:15 11:30 11:45 Temperature Pulse Rate 76 75 75 Respiratory Rate Blood Pressure 189/109 191/105 190/100 O2 Sat by Pulse Oximetry - General Appearance General appearance: appears stated age, chronically ill, frail EENT: ATNC, PERRL, mucous membranes moist Neck: no JVD Respiratory: Present: Decreased Breath Sounds Cardiology: regular, S1S2 Gastrointestinal: normoactive bowel sounds, distended Integumentary: no rash, other (no edema ) Neurologic: no focal deficit, alert and oriented x3, strength 5/5, CN 3-12 intact - Lab 05/26/17 06:23 05/25/17 16:08 Most recent lab results Calcium 8.2 mg/dL (8.4-10.2) L 05/25/17 16:08
[2017-05-28] MEDS: APRESOLINE PO SCH ×3 (14:22→21:46)
[2017-05-28] MEDS: LOPRESSOR PO SCH ×2 (14:23→21:46)
[2017-05-28] MEDS: NORVASC PO SCH (15:17)
[2017-05-28] MEDS: COZAAR PO SCH (15:27)
--- NOTE | 2017-05-28 20:13 | Progress Note ---
Assessment and Plan Assessment and plan: 40 year old -[place] female presented to the emergency department with complaints of missed dialysis, not feeling well, confusion. Per chart review patient had history of HIV, ESRD on hemodialysis. Patient said she presented for fluid overload Abdominal pain, anorexia and nausea GI input appreciated, advance diet as tolerated. Fluid overload secondary to missed dialysis continue HD counseled on improved compliance Right-sided pleural effusion Pulmonology input appreciated, case discussed with the produce associate At this point she has multiple comorbidities, fluid overload/anasarca is most likely due to missed dialysis sessions. -the risks likely outweigh the benefits to thoracentesis. We'll continue dialysis. Patient improving Hyperkalemia Has now resolved with dialysis ESRD on hemodialysis Nephrology consulted and patient had hemodialysis Severe Anemia transfused 3 units of blood, with a posttransfusion H&H GI input appreciated "Anemia - unknown baseline, along with pancytopenia. repeat labs pending. difficult to obtain history from pt regarding signs of overt bleeding. Start IV PPI and octreotide if any signs of bleeding develops. EGD if signs of overt bleeding and based on clinical course/progress. Cirrhosis with ascites - unclear etiology, + ascites, ammonia wnl; check viral hep serologies and diagnostic tap if feasible by IR. avoid sedating medications. " Status post paracentesis which only shows transudate Type II OK Manage comorbidities, no further workup indicated Abdominal wound and right buttock ulcer Present on admission, continue wound care HIV infection Case discussed with infectious disease consultants Continue Bactrim for PJP prophylaxis, follow-up CD4 and viral load. Id consult appreciated Severe malnutrition We'll consult nutrition, encourage increased by mouth intake Debility We'll obtain PT consults History Interval history: She still complaining of abdominal pain and she eats, poor appetite. Occasional nausea. Review of systems Constitutional: No fevers, complaining of generalized weakness CVS: No chest pain, no orthopnea, no dyspnea on exertion, no pedal edema GI: Abdominal pain, nausea, anorexia Respiratory: No shortness of breath, no wheezing, no coughing Hospitalist Physical - Physical exam Narrative exam: General.: Appears chronically ill cachetic HEENT: Moist mucous membranes, extraocular muscles intact, no lymphadenopathy Neck: supple Cardiac: S1-S2 heard Lungs: clear to auscultation bilaterally Abdomen: soft , nontender, nondistended, bowel sounds positive Extremities: no edema clubbing or cyanosis Skin: Abdominal wounds noted, no odor or drainage Right gluteal fold wound, no drainage or order presents Neurologic: no gross focal deficits Psych: appropriate behavior, appropriate mood, corporative, judgment intact - Constitutional Vitals: Temp Pulse Resp BP Pulse Ox 97.9 F 78 18 188/104 93 05/28/17 16:11 05/28/17 16:11 05/28/17 16:11 05/28/17 16:11 05/28/17 16:11 General appearance: Present: no acute distress, cachectic, other (lethargic) Results - Labs CBC & Chem 7: 05/26/17 06:23 05/25/17 16:08 Labs: Laboratory Last Values WBC 3.7 K/mm3 (4.5-11.0) L 05/25/17 16:08 RBC 3.52 M/mm3 (3.65-5.03) L 05/25/17 16:08 Hgb 11.3 gm/dl (10.1-14.3) 05/26/17 06:23 Hct 33.5 % (30.3-42.9) 05/26/17 06:23 MCV 87 fl (79-97) 05/25/17 16:08 MCH 30 pg (28-32) 05/25/17 16:08 MCHC 34 % (30-34) 05/25/17 16:08 RDW 16.6 % (13.2-15.2) H 05/25/17 16:08 Plt Count 133 K/mm3 (140-440) L 05/25/17 16:08 Add Manual Diff Complete 05/25/17 16:08 Total Counted 100 05/25/17 16:08 Seg Neutrophils % Associate Professor Of English 05/25/17 16:08 Seg Neuts % (Manual) 98.0 % (40.0-70.0) H 05/25/17 16:08 Band Neutrophils % 0 % 05/25/17 16:08 Lymphocytes % (Manual) 0 % (13.4-35.0) L 05/25/17 16:08 Reactive Lymphs % (Man) 0 % 05/25/17 16:08 Monocytes % (Manual) 2.0 % (0.0-7.3) 05/25/17 16:08 Eosinophils % (Manual) 0 % (0.0-4.3) 05/25/17 16:08 Basophils % (Manual) 0 % (0.0-1.8) 05/25/17 16:08 Metamyelocytes % 0 % 05/25/17 16:08 Myelocytes % 0 % 05/25/17 16:08 Promyelocytes % 0 % 05/25/17 16:08 Blast Cells % 0 % 05/25/17 16:08 Nucleated RBC % Not Reportable 05/25/17 16:08 Seg Neutrophils # Man 3.6 K/mm3 (1.8-7.7) 05/25/17 16:08 Band Neutrophils # 0.0 K/mm3 05/25/17 16:08 Lymphocytes # (Manual) 0.0 K/mm3 (1.2-5.4) L 05/25/17 16:08 Abs React Lymphs (Man) 0.0 K/mm3 05/25/17 16:08 Monocytes # (Manual) 0.1 K/mm3 (0.0-0.8) 05/25/17 16:08 Eosinophils # (Manual) 0.0 K/mm3 (0.0-0.4) 05/25/17 16:08 Basophils # (Manual) 0.0 K/mm3 (0.0-0.1) 05/25/17 16:08 Metamyelocytes # 0.0 K/mm3 05/25/17 16:08 Myelocytes # 0.0 K/mm3 05/25/17 16:08 Promyelocytes # 0.0 K/mm3 05/25/17 16:08 Blast Cells # 0.0 K/mm3 05/25/17 16:08 WBC Morphology Not Reportable 05/25/17 16:08 Hypersegmented Neuts Not Reportable 05/25/17 16:08 Hyposegmented Neuts Not Reportable 05/25/17 16:08 Hypogranular Neuts Not Reportable 05/25/17 16:08 Smudge Cells Not Reportable 05/25/17 16:08 Toxic Granulation Not Reportable 05/25/17 16:08 Toxic Vacuolation Not Reportable 05/25/17 16:08 Dohle Bodies Not Reportable 05/25/17 16:08 Pelger-Huet Anomaly Not Reportable 05/25/17 16:08 Ruben Rods Not Reportable 05/25/17 16:08 Platelet Estimate Consistent w auto 05/25/17 16:08 Clumped Platelets Not Reportable 05/25/17 16:08 Plt Clumps, EDTA Not Reportable 05/25/17 16:08 Large Platelets Not Reportable 05/25/17 16:08 Giant Platelets Not Reportable 05/25/17 16:08 Platelet Satelliting Not Reportable 05/25/17 16:08 Plt Morphology Comment Not Reportable 05/25/17 16:08 RBC Morphology Not Reportable 05/25/17 16:08 Dimorphic RBCs Not Reportable 05/25/17 16:08 Polychromasia Not Reportable 05/25/17 16:08 Hypochromasia Not Reportable 05/25/17 16:08 Poikilocytosis 1+ 05/25/17 16:08 Anisocytosis 2+ 05/25/17 16:08 Microcytosis Not Reportable 05/25/17 16:08 Macrocytosis Not Reportable 05/25/17 16:08 Spherocytes Not Reportable 05/25/17 16:08 Pappenheimer Bodies Not Reportable 05/25/17 16:08 Sickle Cells Not Reportable 05/25/17 16:08 Target Cells Not Reportable 05/25/17 16:08 Tear Drop Cells Not Reportable 05/25/17 16:08 Ovalocytes Not Reportable 05/25/17 16:08 Helmet Cells Not Reportable 05/25/17 16:08 Oconnor-Mills Bodies Not Reportable 05/25/17 16:08 Carlton Rings Not Reportable 05/25/17 16:08 Tatum Cells Not Reportable 05/25/17 16:08 Bite Cells Not Reportable 05/25/17 16:08 Crenated Cell Not Reportable 05/25/17 16:08 Elliptocytes Few 05/25/17 16:08 Acanthocytes (Spur) Not Reportable 05/25/17 16:08 Rouleaux Not Reportable 05/25/17 16:08 Hemoglobin C Crystals Not Reportable 05/25/17 16:08 Schistocytes Not Reportable 05/25/17 16:08 Malaria parasites Not Reportable 05/25/17 16:08 Rick Bodies Not Reportable 05/25/17 16:08 Hem Pathologist Commnt No 05/25/17 16:08 PT 16.5 Sec. (12.2-14.9) H 05/27/17 05:13 INR 1.27 (0.87-1.13) H 05/27/17 05:13 Sodium 135 mmol/L (137-145) L D 05/25/17 16:08 Potassium 4.1 mmol/L (3.6-5.0) D 05/25/17 16:08 Chloride 90.1 mmol/L (98-107) L 05/25/17 16:08 Carbon Dioxide 23 mmol/L (22-30) 05/25/17 16:08 Anion Gap 26 mmol/L 05/25/17 16:08 BUN 47 mg/dL (7-17) H 05/25/17 16:08 Creatinine 5.9 mg/dL (0.7-1.2) H 05/25/17 16:08 Estimated GFR 9 ml/min 05/25/17 16:08 BUN/Creatinine Ratio 8 % 05/25/17 16:08 Glucose 143 mg/dL (65-100) H 05/25/17 16:08 POC Glucose 70 (70-105) 05/28/17 17:09 Calcium 8.2 mg/dL (8.4-10.2) L 05/25/17 16:08 Total Bilirubin 0.50 mg/dL (0.1-1.2) 05/25/17 07:17 Direct Bilirubin 0.3 mg/dL (0-0.2) H 05/25/17 07:17 Indirect Bilirubin 0.2 mg/dL 05/25/17 07:17 AST 17 units/L (5-40) 05/25/17 07:17 ALT 7 units/L (7-56) 05/25/17 07:17 Alkaline Phosphatase 355 units/L (35-129) H 05/25/17 07:17 Ammonia 26.0 umol/L (25-60) 05/25/17 07:18 Total Creatine Kinase 97 units/L (30-135) 05/25/17 16:08 CK-MB (CK-2) 4.4 ng/mL (0.0-4.0) H 05/25/17 16:08 CK-MB (CK-2) Rel Index 4.5 (0-4) H 05/25/17 16:08 Troponin T 0.349 ng/mL (0.00-0.029) H* 05/25/17 16:08 C-Reactive Protein 6.70 mg/dL (0.00-1.30) H 05/26/17 10:05 Total Protein 6.9 g/dL (6.3-8.2) 05/25/17 07:17 Albumin 2.6 g/dL (3.9-5) L 05/25/17 07:17 Albumin/Globulin Ratio 0.6 % 05/25/17 07:17 Triglycerides 187 mg/dL (2-149) H 05/24/17 16:44 Cholesterol 95 mg/dL (50-199) 05/24/17 16:44 LDL Cholesterol Direct 19 mg/dL (50-130) L 05/24/17 16:44 HDL Cholesterol 39 mg/dL (40-59) L 05/24/17 16:44 Cholesterol/HDL Ratio 2.43 % 05/24/17 16:44 Fluid Type Ascitic 05/26/17 Unknown Fluid Color Straw 05/26/17 Unknown Fluid Appearance Clear 05/26/17 Unknown Fluid WBC 2 /mm3 05/26/17 Unknown Fluid RBC 0 /mm3 05/26/17 Unknown Fluid Seg Neutrophils 0 % 05/26/17 Unknown Fluid Lymphocytes 2 % 05/26/17 Unknown Fluid Reactive Lymphs 0 % 05/26/17 Unknown Fluid Monocytes 3 % 05/26/17 Unknown Fluid Eosinophils 0 % 05/26/17 Unknown Fluid Basophils 0 % 05/26/17 Unknown Hepatitis A IgM Ab Non-reactive (NonReactive) 05/26/17 11:24 Hep Bs Antigen Nonreactive (Negative) 05/26/17 11:24 Hep B Core IgM Ab Non-reactive (NonReactive) 05/26/17 11:24 Hepatitis C Antibody Non-reactive (NonReactive) 05/26/17 11:24 HIV 1&2 Antibody Rapid Reactive (Non React) 05/25/17 16:08 HIV P24 Antigen Non react (Non React) 05/25/17 16:08 Blood Type A POSITIVE 05/25/17 03:54 Antibody Screen Negative 05/25/17 03:54 Crossmatch See Detail 05/25/17 03:54
[2017-05-29] MEDS: DILAUDID IV PRN ×4 (05:05→19:57)
[2017-05-29] MEDS: HEPARIN SUB-Q SCH ×2 (05:30→14:18)
[2017-05-29] MEDS: APRESOLINE PO SCH ×4 (08:00→20:00)
--- NOTE | 2017-05-29 08:47 | Gastroenterology Progress Note ---
Assessment and Plan 1. Anemia/pancytopenia 2. Ascites 3. HIV 4. Malnutrition/poor po intake -pt without signs of overt bleeding since admission. H/H has been stable after blood transfusions. hold off on endoscopy unless concern for gi bleeding -unclear etiology of ascites (?cirrhosis vs non-portal htn related). f/u diagnostic studies. viral hep serologies neg and no reported alcohol abuse history. afb pending as well -encouraged po intake with pt, consider nutrition consult No further inpatient GI recommendations at present time. will sign off. Call back as needed or with questions. Subjective Date of service: 05/28/17 Principal diagnosis: anemia Interval history: pt seen and examined. c/o abd pain. mental status appears the same over last couple days. no reported gi bleeding. minimal po intake Objective - Exam Narrative Exam: Gen: malnourished, disheveled appearance Mouth: dry mucous membranes CV: RRR Lungs: CTAB Abd: + surgical scars with wound, + hernia, ascites, diffuse ttp - Constitutional Vitals: Temp Pulse Resp BP Pulse Ox 98.4 F 79 15 184/113 94 05/29/17 07:54 05/29/17 07:54 05/29/17 07:54 05/29/17 07:54 05/29/17 07:54 - Labs CBC & Chem 7: 05/26/17 06:23 05/25/17 16:08 Labs: Laboratory Results - last 24 hr 05/28/17 05/28/17 05/29/17 17:09 22:30 06:36 POC Glucose 70 124 H 91
--- NOTE | 2017-05-29 09:12 | XRay Report ---
AP CHEST: HISTORY: Followup pleural effusion The large right pleural effusion has decreased by 25%. There is better aeration of the right upper lobe. Compressive atelectasis of the right middle and lower lobes remains. The left lung is clear with no infiltrate or pleural effusion. There is moderate cardiomegaly and mild pulmonary venous congestion. IMPRESSION: CHF. Improvement in the right pleural effusion.
--- NOTE | 2017-05-29 10:55 | Progress Note ---
Assessment and Plan Assessment and plan: 40 year old -[place] female presented to the emergency department with complaints of missed dialysis, not feeling well, confusion. Per chart review patient had history of HIV, ESRD on hemodialysis. Patient said she presented for fluid overload Abdominal pain, anorexia and nausea GI input appreciated, advance diet as tolerated. Fluid overload secondary to missed dialysis continue HD counseled on improved compliance Right-sided pleural effusion Pulmonology input appreciated, case discussed with the superintendent track At this point she has multiple comorbidities, fluid overload/anasarca is most likely due to missed dialysis sessions. -the risks likely outweigh the benefits to thoracentesis. We'll continue dialysis. Patient improving Hyperkalemia Has now resolved with dialysis ESRD on hemodialysis Nephrology consulted and patient had hemodialysis Severe Anemia transfused 3 units of blood, with a posttransfusion H&H GI input appreciated "Anemia - unknown baseline, along with pancytopenia. repeat labs pending. difficult to obtain history from pt regarding signs of overt bleeding. Start IV PPI and octreotide if any signs of bleeding develops. EGD if signs of overt bleeding and based on clinical course/progress. Cirrhosis with ascites - unclear etiology, + ascites, ammonia wnl; check viral hep serologies and diagnostic tap if feasible by IR. avoid sedating medications. " Status post paracentesis which only shows transudate Type II NH Manage comorbidities, no further workup indicated Case discussed with the marine propulsion technician Abdominal wound and right buttock ulcer Present on admission, continue wound care HIV infection Case discussed with infectious disease consultants Continue Bactrim for PJP prophylaxis, follow-up CD4 and viral load. Id consult appreciated Severe malnutrition We'll consult nutrition, encourage increased by mouth intake Debility We'll obtain PT consults History Interval history: She still complaining of abdominal pain and she eats, poor appetite. Occasional nausea. Review of systems Constitutional: No fevers, complaining of generalized weakness CVS: No chest pain, no orthopnea, no dyspnea on exertion, no pedal edema GI: Abdominal pain, nausea, anorexia Respiratory: No shortness of breath, no wheezing, no coughing Hospitalist Physical - Physical exam Narrative exam: General.: Appears chronically ill cachetic HEENT: Moist mucous membranes, extraocular muscles intact, no lymphadenopathy Neck: supple Cardiac: S1-S2 heard Lungs: clear to auscultation bilaterally Abdomen: soft , nontender, nondistended, bowel sounds positive Extremities: no edema clubbing or cyanosis Skin: Abdominal wounds noted, no odor or drainage Right gluteal fold wound, no drainage or order presents Neurologic: no gross focal deficits Psych: appropriate behavior, appropriate mood, corporative, judgment intact - Constitutional Vitals: Temp Pulse Resp BP Pulse Ox 98.4 F 79 15 184/113 94 05/29/17 07:54 05/29/17 07:54 05/29/17 07:54 05/29/17 07:54 05/29/17 07:54 General appearance: Present: no acute distress, cachectic, other (lethargic) Results - Labs CBC & Chem 7: 05/26/17 06:23 05/25/17 16:08 Labs: Laboratory Last Values WBC 3.7 K/mm3 (4.5-11.0) L 05/25/17 16:08 RBC 3.52 M/mm3 (3.65-5.03) L 05/25/17 16:08 Hgb 11.3 gm/dl (10.1-14.3) 05/26/17 06:23 Hct 33.5 % (30.3-42.9) 05/26/17 06:23 MCV 87 fl (79-97) 05/25/17 16:08 MCH 30 pg (28-32) 05/25/17 16:08 MCHC 34 % (30-34) 05/25/17 16:08 RDW 16.6 % (13.2-15.2) H 05/25/17 16:08 Plt Count 133 K/mm3 (140-440) L 05/25/17 16:08 Add Manual Diff Complete 05/25/17 16:08 Total Counted 100 05/25/17 16:08 Seg Neutrophils % Frame Table Operator Helper 05/25/17 16:08 Seg Neuts % (Manual) 98.0 % (40.0-70.0) H 05/25/17 16:08 Band Neutrophils % 0 % 05/25/17 16:08 Lymphocytes % (Manual) 0 % (13.4-35.0) L 05/25/17 16:08 Reactive Lymphs % (Man) 0 % 05/25/17 16:08 Monocytes % (Manual) 2.0 % (0.0-7.3) 05/25/17 16:08 Eosinophils % (Manual) 0 % (0.0-4.3) 05/25/17 16:08 Basophils % (Manual) 0 % (0.0-1.8) 05/25/17 16:08 Metamyelocytes % 0 % 05/25/17 16:08 Myelocytes % 0 % 05/25/17 16:08 Promyelocytes % 0 % 05/25/17 16:08 Blast Cells % 0 % 05/25/17 16:08 Nucleated RBC % Not Reportable 05/25/17 16:08 Seg Neutrophils # Man 3.6 K/mm3 (1.8-7.7) 05/25/17 16:08 Band Neutrophils # 0.0 K/mm3 05/25/17 16:08 Lymphocytes # (Manual) 0.0 K/mm3 (1.2-5.4) L 05/25/17 16:08 Abs React Lymphs (Man) 0.0 K/mm3 05/25/17 16:08 Monocytes # (Manual) 0.1 K/mm3 (0.0-0.8) 05/25/17 16:08 Eosinophils # (Manual) 0.0 K/mm3 (0.0-0.4) 05/25/17 16:08 Basophils # (Manual) 0.0 K/mm3 (0.0-0.1) 05/25/17 16:08 Metamyelocytes # 0.0 K/mm3 05/25/17 16:08 Myelocytes # 0.0 K/mm3 05/25/17 16:08 Promyelocytes # 0.0 K/mm3 05/25/17 16:08 Blast Cells # 0.0 K/mm3 05/25/17 16:08 WBC Morphology Not Reportable 05/25/17 16:08 Hypersegmented Neuts Not Reportable 05/25/17 16:08 Hyposegmented Neuts Not Reportable 05/25/17 16:08 Hypogranular Neuts Not Reportable 05/25/17 16:08 Smudge Cells Not Reportable 05/25/17 16:08 Toxic Granulation Not Reportable 05/25/17 16:08 Toxic Vacuolation Not Reportable 05/25/17 16:08 Dohle Bodies Not Reportable 05/25/17 16:08 Pelger-Huet Anomaly Not Reportable 05/25/17 16:08 Ruben Rods Not Reportable 05/25/17 16:08 Platelet Estimate Consistent w auto 05/25/17 16:08 Clumped Platelets Not Reportable 05/25/17 16:08 Plt Clumps, EDTA Not Reportable 05/25/17 16:08 Large Platelets Not Reportable 05/25/17 16:08 Giant Platelets Not Reportable 05/25/17 16:08 Platelet Satelliting Not Reportable 05/25/17 16:08 Plt Morphology Comment Not Reportable 05/25/17 16:08 RBC Morphology Not Reportable 05/25/17 16:08 Dimorphic RBCs Not Reportable 05/25/17 16:08 Polychromasia Not Reportable 05/25/17 16:08 Hypochromasia Not Reportable 05/25/17 16:08 Poikilocytosis 1+ 05/25/17 16:08 Anisocytosis 2+ 05/25/17 16:08 Microcytosis Not Reportable 05/25/17 16:08 Macrocytosis Not Reportable 05/25/17 16:08 Spherocytes Not Reportable 05/25/17 16:08 Pappenheimer Bodies Not Reportable 05/25/17 16:08 Sickle Cells Not Reportable 05/25/17 16:08 Target Cells Not Reportable 05/25/17 16:08 Tear Drop Cells Not Reportable 05/25/17 16:08 Ovalocytes Not Reportable 05/25/17 16:08 Helmet Cells Not Reportable 05/25/17 16:08 [place] Bodies Not Reportable 05/25/17 16:08 [place] Rings Not Reportable 05/25/17 16:08 Nell Cells Not Reportable 05/25/17 16:08 Bite Cells Not Reportable 05/25/17 16:08 Crenated Cell Not Reportable 05/25/17 16:08 Elliptocytes Few 05/25/17 16:08 Acanthocytes (Spur) Not Reportable 05/25/17 16:08 Rouleaux Not Reportable 05/25/17 16:08 Hemoglobin C Crystals Not Reportable 05/25/17 16:08 Schistocytes Not Reportable 05/25/17 16:08 Malaria parasites Not Reportable 05/25/17 16:08 Rick Bodies Not Reportable 05/25/17 16:08 Hem Pathologist Commnt No 05/25/17 16:08 PT 16.5 Sec. (12.2-14.9) H 05/27/17 05:13 INR 1.27 (0.87-1.13) H 05/27/17 05:13 Sodium 135 mmol/L (137-145) L D 05/25/17 16:08 Potassium 4.1 mmol/L (3.6-5.0) D 05/25/17 16:08 Chloride 90.1 mmol/L (98-107) L 05/25/17 16:08 Carbon Dioxide 23 mmol/L (22-30) 05/25/17 16:08 Anion Gap 26 mmol/L 05/25/17 16:08 BUN 47 mg/dL (7-17) H 05/25/17 16:08 Creatinine 5.9 mg/dL (0.7-1.2) H 05/25/17 16:08 Estimated GFR 9 ml/min 05/25/17 16:08 BUN/Creatinine Ratio 8 % 05/25/17 16:08 Glucose 143 mg/dL (65-100) H 05/25/17 16:08 POC Glucose 91 (70-105) 05/29/17 06:36 Calcium 8.2 mg/dL (8.4-10.2) L 05/25/17 16:08 Total Bilirubin 0.50 mg/dL (0.1-1.2) 05/25/17 07:17 Direct Bilirubin 0.3 mg/dL (0-0.2) H 05/25/17 07:17 Indirect Bilirubin 0.2 mg/dL 05/25/17 07:17 AST 17 units/L (5-40) 05/25/17 07:17 ALT 7 units/L (7-56) 05/25/17 07:17 Alkaline Phosphatase 355 units/L (35-129) H 05/25/17 07:17 Ammonia 26.0 umol/L (25-60) 05/25/17 07:18 Total Creatine Kinase 97 units/L (30-135) 05/25/17 16:08 CK-MB (CK-2) 4.4 ng/mL (0.0-4.0) H 05/25/17 16:08 CK-MB (CK-2) Rel Index 4.5 (0-4) H 05/25/17 16:08 Troponin T 0.349 ng/mL (0.00-0.029) H* 05/25/17 16:08 C-Reactive Protein 6.70 mg/dL (0.00-1.30) H 05/26/17 10:05 Total Protein 6.9 g/dL (6.3-8.2) 05/25/17 07:17 Albumin 2.6 g/dL (3.9-5) L 05/25/17 07:17 Albumin/Globulin Ratio 0.6 % 05/25/17 07:17 Triglycerides 187 mg/dL (2-149) H 05/24/17 16:44 Cholesterol 95 mg/dL (50-199) 05/24/17 16:44 LDL Cholesterol Direct 19 mg/dL (50-130) L 05/24/17 16:44 HDL Cholesterol 39 mg/dL (40-59) L 05/24/17 16:44 Cholesterol/HDL Ratio 2.43 % 05/24/17 16:44 Fluid Type Ascitic 05/26/17 Unknown Fluid Color Straw 05/26/17 Unknown Fluid Appearance Clear 05/26/17 Unknown Fluid WBC 2 /mm3 05/26/17 Unknown Fluid RBC 0 /mm3 05/26/17 Unknown Fluid Seg Neutrophils 0 % 05/26/17 Unknown Fluid Lymphocytes 2 % 05/26/17 Unknown Fluid Reactive Lymphs 0 % 05/26/17 Unknown Fluid Monocytes 3 % 05/26/17 Unknown Fluid Eosinophils 0 % 05/26/17 Unknown Fluid Basophils 0 % 05/26/17 Unknown Hepatitis A IgM Ab Non-reactive (NonReactive) 05/26/17 11:24 Hep Bs Antigen Nonreactive (Negative) 05/26/17 11:24 Hep B Core IgM Ab Non-reactive (NonReactive) 05/26/17 11:24 Hepatitis C Antibody Non-reactive (NonReactive) 05/26/17 11:24 HIV 1&2 Antibody Rapid Reactive (Non React) 05/25/17 16:08 HIV P24 Antigen Non react (Non React) 05/25/17 16:08 Blood Type A POSITIVE 05/25/17 03:54 Antibody Screen Negative 05/25/17 03:54 Crossmatch See Detail 05/25/17 03:54
[2017-05-29] MEDS: LOPRESSOR PO SCH (11:06)
[2017-05-29] MEDS: PROCARDIA XL PO SCH (11:06)
[2017-05-29] MEDS: COZAAR PO SCH (11:06)
--- NOTE | 2017-05-29 11:48 | Progress Note ---
Assessment and Plan - Patient Problems (1) Acute hypoxemic respiratory failure Current Visit: Yes Status: Acute (2) Chronic renal failure Current Visit: Yes Status: Acute (3) ESRD (end stage renal disease) Current Visit: Yes Status: Acute Subjective Principal diagnosis: anemia Interval history: no change Objective Vital Signs - 12hr 05/29/17 05/29/17 05/29/17 04:44 07:50 07:54 Temperature 98.2 F 98.4 F 98.4 F Pulse Rate 75 78 79 Respiratory 20 16 15 Rate Blood Pressure 169/101 184/113 Blood Pressure 184/113 [Left] O2 Sat by Pulse 99 96 94 Oximetry 05/29/17 11:06 Temperature Pulse Rate 79 Respiratory Rate Blood Pressure 184/113 Blood Pressure [Left] O2 Sat by Pulse Oximetry Constitutional: no acute distress, alert Eyes: non-icteric ENT: oropharynx moist Neck: supple Effort: normal Ascultation: Right: diminished breath sounds (base) Cardiovascular: regular rate and rhythm (no mrg) Gastrointestinal: normoactive bowel sounds, soft, non-tender, other (distended w / ascites) Integumentary: other (very dry skin) Extremities: no cyanosis, pink and warm, edema (trace bilateral LE edema) Neurologic: normal mental status, non-focal exam, pupils equal and round, CN II- XII normal Psychiatric: other (blunted affect) CBC and BMP: 05/26/17 06:23 05/25/17 16:08 ABG, PT/INR, D-dimer: PT/INR, D-dimer PT 16.5 Sec. (12.2-14.9) H 05/27/17 05:13 INR 1.27 (0.87-1.13) H 05/27/17 05:13 Abnormal lab findings: Abnormal Labs 05/24/17 05/24/17 05/24/17 16:44 16:44 20:44 WBC 2.3 L RBC 2.37 L Hgb 6.5 L Hct 20.5 L RDW 18.4 H Plt Count 136 L Seg Neuts % (Manual) 76.0 H Lymphocytes % (Manual) 5.0 L Seg Neutrophils # Man 1.7 L Lymphocytes # (Manual) 0.1 L PT INR Sodium 128 L Potassium 5.9 H Chloride 83.9 L BUN 91 H Creatinine 9.8 H Glucose 53 L POC Glucose 43 L Calcium 7.9 L Direct Bilirubin Alkaline Phosphatase CK-MB (CK-2) CK-MB (CK-2) Rel Index Troponin T 0.293 H* C-Reactive Protein Albumin Triglycerides 187 H LDL Cholesterol Direct 19 L HDL Cholesterol 39 L Crossmatch 05/25/17 05/25/17 05/25/17 01:28 03:54 06:06 WBC RBC Hgb Hct RDW Plt Count Seg Neuts % (Manual) Lymphocytes % (Manual) Seg Neutrophils # Man Lymphocytes # (Manual) PT INR Sodium Potassium Chloride BUN Creatinine Glucose POC Glucose 109 H 124 H Calcium Direct Bilirubin Alkaline Phosphatase CK-MB (CK-2) CK-MB (CK-2) Rel Index Troponin T C-Reactive Protein Albumin Triglycerides LDL Cholesterol Direct HDL Cholesterol Crossmatch See Detail 05/25/17 05/25/17 05/25/17 07:17 16:08 16:08 WBC 3.7 L RBC 3.52 L Hgb Hct RDW 16.6 H Plt Count 133 L Seg Neuts % (Manual) 98.0 H Lymphocytes % (Manual) 0 L Seg Neutrophils # Man Lymphocytes # (Manual) 0.0 L PT INR Sodium 135 L D Potassium Chloride 90.1 L BUN 47 H Creatinine 5.9 H Glucose 143 H POC Glucose Calcium 8.2 L Direct Bilirubin 0.3 H Alkaline Phosphatase 355 H CK-MB (CK-2) CK-MB (CK-2) Rel Index Troponin T C-Reactive Protein Albumin 2.6 L Triglycerides LDL Cholesterol Direct HDL Cholesterol Crossmatch 05/25/17 05/25/17 05/25/17 16:08 16:57 18:10 WBC RBC Hgb 9.3 L Hct 27.8 L RDW Plt Count Seg Neuts % (Manual) Lymphocytes % (Manual) Seg Neutrophils # Man Lymphocytes # (Manual) PT INR Sodium Potassium Chloride BUN Creatinine Glucose POC Glucose 139 H Calcium Direct Bilirubin Alkaline Phosphatase CK-MB (CK-2) 4.4 H CK-MB (CK-2) Rel Index 4.5 H Troponin T 0.349 H* C-Reactive Protein Albumin Triglycerides LDL Cholesterol Direct HDL Cholesterol Crossmatch 05/25/17 05/26/17 05/26/17 21:26 06:14 10:05 WBC RBC Hgb Hct RDW Plt Count Seg Neuts % (Manual) Lymphocytes % (Manual) Seg Neutrophils # Man Lymphocytes # (Manual) PT INR Sodium Potassium Chloride BUN Creatinine Glucose POC Glucose 130 H 111 H Calcium Direct Bilirubin Alkaline Phosphatase CK-MB (CK-2) CK-MB (CK-2) Rel Index Troponin T C-Reactive Protein 6.70 H Albumin Triglycerides LDL Cholesterol Direct HDL Cholesterol Crossmatch 05/27/17 05/27/17 05/27/17 05:13 05:56 11:33 WBC RBC Hgb Hct RDW Plt Count Seg Neuts % (Manual) Lymphocytes % (Manual) Seg Neutrophils # Man Lymphocytes # (Manual) PT 16.5 H INR 1.27 H Sodium Potassium Chloride BUN Creatinine Glucose POC Glucose 68 L 63 L Calcium Direct Bilirubin Alkaline Phosphatase CK-MB (CK-2) CK-MB (CK-2) Rel Index Troponin T C-Reactive Protein Albumin Triglycerides LDL Cholesterol Direct HDL Cholesterol Crossmatch 05/28/17 22:30 WBC RBC Hgb Hct RDW Plt Count Seg Neuts % (Manual) Lymphocytes % (Manual) Seg Neutrophils # Man Lymphocytes # (Manual) PT INR Sodium Potassium Chloride BUN Creatinine Glucose POC Glucose 124 H Calcium Direct Bilirubin Alkaline Phosphatase CK-MB (CK-2) CK-MB (CK-2) Rel Index Troponin T C-Reactive Protein Albumin Triglycerides LDL Cholesterol Direct HDL Cholesterol Crossmatch
[2017-05-29] MEDS ORDERED: NACL 0.9% 100 ML IV PRN (11:49)
--- NOTE | 2017-05-29 11:53 | Progress Note ---
Assessment and Plan - Patient Problems (1) Fluid overload Current Visit: Yes Status: Acute Plan to address problem: Hemodialysis again this morning for fluid overload (2) ESRD (end stage renal disease) Current Visit: Yes Status: Acute Plan to address problem: Hemodialysis today but isolated ultrafiltration 3.5 L (3) HIV (human immunodeficiency virus infection) Current Visit: Yes Status: Acute Plan to address problem: Antiretrovirals per Infectious disease (4) Pleural effusion Current Visit: Yes Status: Acute Plan to address problem: Chest x-ray noted still with Pleural Effusion and bilateral pulmonary congestion. Subjective Date of service: 05/29/17 Principal diagnosis: anemia Interval history: Patient seen lying in bed. No complaints. Admits to shortness of breath. Objective - Exam Narrative Exam: Middle-aged female lying in bed in no acute distress HEENT: NCAT, pink oral mucous membrane Neck: Supple, no venous distention CVS: S1S2 RRR with no murmur, rub or gallop Chest: Diminished breath sounds bilaterally Abdomen: Mildly distended, soft, nontender, no organomegaly, bowel sounds are present Extremities: No edema Neuro: Awake, alert no focal deficits - Vital Signs Vital signs: Vital Signs - 12hr 05/29/17 05/29/17 05/29/17 04:44 07:50 07:54 Temperature 98.2 F 98.4 F 98.4 F Pulse Rate 75 78 79 Respiratory 20 16 15 Rate Blood Pressure 169/101 184/113 Blood Pressure 184/113 [Left] O2 Sat by Pulse 99 96 94 Oximetry 05/29/17 11:06 Temperature Pulse Rate 79 Respiratory Rate Blood Pressure 184/113 Blood Pressure [Left] O2 Sat by Pulse Oximetry - Lab 05/26/17 06:23 05/25/17 16:08 Most recent lab results Calcium 8.2 mg/dL (8.4-10.2) L 05/25/17 16:08
--- NOTE | 2017-05-29 14:56 | Progress Note ---
Assessment and Plan Assessment: 1) Pancytopenia: no evidence of fever so far. DDx: HIV induced versus opportunistic infections. CRP=6.7 2) HIV infection of unclear duration/CD4/VL 3) Right pleural effusion/Right sided body edema/anasarca-likely positional - CT showed extensive ascites with moderate to large right pleural effusion associated with a right lower lobe infiltrate versus atelectasis. 4) ESRD on HD 5) CAD S/P Stent Placement CT of the head showed generalized brain atrophy and right sphenoidal sinusitis. 6) Abdominal pain/N/V: CT showed extensive ascitis and GB stones. SBP ruled out , ascitic fluid normal. Unclear etiology-no better Plan: -follow-up CD4, HIV-viral load, genotype, AFB-blood cultures to r/o MAC - pending -bactrim DS 3 times a week for PJP prophylaxis -pain management Thank you Dr Gomez for your consultation, will follow up with you. Elizabeth Sheikh MD Infectious Diseases Specialist [facility] ([facility]) M [phone] O [phone] Subjective Date of service: 05/29/17 Principal diagnosis: anemia Interval history: Feels the same still c/o severe abdominal pain, N/V. Reports some diarrhea. No fever. Microbiology: Crypto serum ag negative Current Antimicrobials: none Previous Antimicrobials: Objective - Exam Narrative Exam: General appearance: Alert in NAD, cachectic, disheveled. Eyes: anicteric sclerae, moist conjunctivae; no lid-lag; PERRLA HENT: Atraumatic; oropharynx +thrush Neck: Trachea midline; supple, no thyromegaly or lymphadenopathy Lungs: CTA CV: RRR, no murmurs Abdomen: Soft, distended, marked ventral hernia with superficial skin tears Extremities: No peripheral edema or extremity lymphadenopathy Skin: marked right arm edema with pronounced AVF Psych: anxious Neuro: alert and oriented x 3. Moving all extermities Lines: No CVL / PICC - Constitutional Vitals: Vital Signs Temp Pulse Resp BP Pulse Ox 98.4 F 79 20 184/113 94 05/29/17 07:54 05/29/17 11:06 05/29/17 11:52 05/29/17 11:06 05/29/17 07:54 Temperature -Last 24 Hours Temperature 98.4 F Temperature 98.4 F Temperature 98.2 F Temperature 98.5 F Temperature 97.9 F - Labs CBC & Chem 7: 05/26/17 06:23 05/25/17 16:08 Labs: Abnormal lab results 05/28/17 Range/Units 22:30 POC Glucose 124 H (70-105)
[2017-05-29] MEDS ORDERED: NACL 0.9 (PRIMING MACHINE ONLY DIALYSIS) MC ONE (18:59)
[2017-05-29] MEDS ORDERED: DILAUDID IV PRN (19:50)
[2017-05-30] MEDS: LOPRESSOR PO SCH ×3 (01:15→21:15)
[2017-05-30] MEDS: DILAUDID IV PRN ×3 (01:17→13:43)
[2017-05-30] MEDS: HEPARIN SUB-Q SCH ×4 (01:21→21:14)
[2017-05-30] MEDS: COZAAR PO SCH (09:28)
[2017-05-30] MEDS: PROCARDIA XL PO SCH (09:28)
[2017-05-30] MEDS: APRESOLINE PO SCH ×3 (09:29→21:15)
--- NOTE | 2017-05-30 13:12 | Progress Note ---
Assessment and Plan Assessment and plan: 40 year old -[place] female presented to the emergency department with complaints of missed dialysis, not feeling well, confusion. Per chart review patient had history of HIV, ESRD on hemodialysis. Patient said she presented for fluid overload Abdominal pain, anorexia and nausea GI input appreciated, advance diet as tolerated. Fluid overload secondary to missed dialysis continue HD counseled on improved compliance Right-sided pleural effusion Pulmonology input appreciated, case discussed with the senior corporate strategy manager At this point she has multiple comorbidities, fluid overload/anasarca is most likely due to missed dialysis sessions. -the risks likely outweigh the benefits to thoracentesis. We'll continue dialysis. Patient improving Hyperkalemia Has now resolved with dialysis ESRD on hemodialysis Nephrology consulted and patient had hemodialysis Severe Anemia transfused 3 units of blood, with a posttransfusion H&H GI input appreciated "Anemia - unknown baseline, along with pancytopenia. repeat labs pending. difficult to obtain history from pt regarding signs of overt bleeding. Start IV PPI and octreotide if any signs of bleeding develops. EGD if signs of overt bleeding and based on clinical course/progress. Cirrhosis with ascites - unclear etiology, + ascites, ammonia wnl; check viral hep serologies and diagnostic tap if feasible by IR. avoid sedating medications. " Status post paracentesis which only shows transudate Type II IL Manage comorbidities, no further workup indicated Case discussed with the financial report service sales agent Abdominal wound and right buttock ulcer Present on admission, continue wound care HIV infection Case discussed with infectious disease consultants Continue Bactrim for PJP prophylaxis, follow-up CD4 and viral load. Id consult appreciated Severe malnutrition consult nutrition, encourage increased by mouth intake Debility improved, ambulating well without assistance Narcotic depending switch from IV to PO dilaudid with plan to wean her off over time History Interval history: She still complaining of abdominal pain and she eats, poor appetite. Occasional nausea. Review of systems Constitutional: No fevers, complaining of generalized weakness CVS: No chest pain, no orthopnea, no dyspnea on exertion, no pedal edema GI: Abdominal pain, nausea, anorexia Respiratory: No shortness of breath, no wheezing, no coughing Hospitalist Physical - Physical exam Narrative exam: General.: Appears chronically ill cachetic HEENT: Moist mucous membranes, extraocular muscles intact, no lymphadenopathy Neck: supple Cardiac: S1-S2 heard Lungs: clear to auscultation bilaterally Abdomen: soft , nontender, nondistended, bowel sounds positive Extremities: no edema clubbing or cyanosis Skin: Abdominal wounds noted, no odor or drainage Right gluteal fold wound, no drainage or order presents, multiple scars and small wounds all over body she is actively seen picking at her skin and creating wounds Neurologic: no gross focal deficits Psych: appropriate behavior, appropriate mood, corporative, judgment intact - Constitutional Vitals: Temp Pulse Resp BP Pulse Ox 98.1 F 84 20 149/94 95 05/30/17 11:05/30/17 11:09 05/30/17 11:05/30/17 11:05/30/17 11:09 General appearance: Present: no acute distress, cachectic, other (lethargic) Results - Labs CBC & Chem 7: 05/26/17 06:23 05/25/17 16:08 Labs: Laboratory Last Values WBC 3.7 K/mm3 (4.5-11.0) L 05/25/17 16:08 RBC 3.52 M/mm3 (3.65-5.03) L 05/25/17 16:08 Hgb 11.3 gm/dl (10.1-14.3) 05/26/17 06:23 Hct 33.5 % (30.3-42.9) 05/26/17 06:23 MCV 87 fl (79-97) 05/25/17 16:08 MCH 30 pg (28-32) 05/25/17 16:08 MCHC 34 % (30-34) 05/25/17 16:08 RDW 16.6 % (13.2-15.2) H 05/25/17 16:08 Plt Count 133 K/mm3 (140-440) L 05/25/17 16:08 Add Manual Diff Complete 05/25/17 16:08 Total Counted 100 05/25/17 16:08 Seg Neutrophils % Disease Case Manager Rn 05/25/17 16:08 Seg Neuts % (Manual) 98.0 % (40.0-70.0) H 05/25/17 16:08 Band Neutrophils % 0 % 05/25/17 16:08 Lymphocytes % (Manual) 0 % (13.4-35.0) L 05/25/17 16:08 Reactive Lymphs % (Man) 0 % 05/25/17 16:08 Monocytes % (Manual) 2.0 % (0.0-7.3) 05/25/17 16:08 Eosinophils % (Manual) 0 % (0.0-4.3) 05/25/17 16:08 Basophils % (Manual) 0 % (0.0-1.8) 05/25/17 16:08 Metamyelocytes % 0 % 05/25/17 16:08 Myelocytes % 0 % 05/25/17 16:08 Promyelocytes % 0 % 05/25/17 16:08 Blast Cells % 0 % 05/25/17 16:08 Nucleated RBC % Not Reportable 05/25/17 16:08 Seg Neutrophils # Man 3.6 K/mm3 (1.8-7.7) 05/25/17 16:08 Band Neutrophils # 0.0 K/mm3 05/25/17 16:08 Lymphocytes # (Manual) 0.0 K/mm3 (1.2-5.4) L 05/25/17 16:08 Abs React Lymphs (Man) 0.0 K/mm3 05/25/17 16:08 Monocytes # (Manual) 0.1 K/mm3 (0.0-0.8) 05/25/17 16:08 Eosinophils # (Manual) 0.0 K/mm3 (0.0-0.4) 05/25/17 16:08 Basophils # (Manual) 0.0 K/mm3 (0.0-0.1) 05/25/17 16:08 Metamyelocytes # 0.0 K/mm3 05/25/17 16:08 Myelocytes # 0.0 K/mm3 05/25/17 16:08 Promyelocytes # 0.0 K/mm3 05/25/17 16:08 Blast Cells # 0.0 K/mm3 05/25/17 16:08 WBC Morphology Not Reportable 05/25/17 16:08 Hypersegmented Neuts Not Reportable 05/25/17 16:08 Hyposegmented Neuts Not Reportable 05/25/17 16:08 Hypogranular Neuts Not Reportable 05/25/17 16:08 Smudge Cells Not Reportable 05/25/17 16:08 Toxic Granulation Not Reportable 05/25/17 16:08 Toxic Vacuolation Not Reportable 05/25/17 16:08 Dohle Bodies Not Reportable 05/25/17 16:08 Pelger-Huet Anomaly Not Reportable 05/25/17 16:08 Ruben Rods Not Reportable 05/25/17 16:08 Platelet Estimate Consistent w auto 05/25/17 16:08 Clumped Platelets Not Reportable 05/25/17 16:08 Plt Clumps, EDTA Not Reportable 05/25/17 16:08 Large Platelets Not Reportable 05/25/17 16:08 Giant Platelets Not Reportable 05/25/17 16:08 Platelet Satelliting Not Reportable 05/25/17 16:08 Plt Morphology Comment Not Reportable 05/25/17 16:08 RBC Morphology Not Reportable 05/25/17 16:08 Dimorphic RBCs Not Reportable 05/25/17 16:08 Polychromasia Not Reportable 05/25/17 16:08 Hypochromasia Not Reportable 05/25/17 16:08 Poikilocytosis 1+ 05/25/17 16:08 Anisocytosis 2+ 05/25/17 16:08 Microcytosis Not Reportable 05/25/17 16:08 Macrocytosis Not Reportable 05/25/17 16:08 Spherocytes Not Reportable 05/25/17 16:08 Pappenheimer Bodies Not Reportable 05/25/17 16:08 Sickle Cells Not Reportable 05/25/17 16:08 Target Cells Not Reportable 05/25/17 16:08 Tear Drop Cells Not Reportable 05/25/17 16:08 Ovalocytes Not Reportable 05/25/17 16:08 Helmet Cells Not Reportable 05/25/17 16:08 Oconnor-Riddle Bodies Not Reportable 05/25/17 16:08 Casscoe Rings Not Reportable 05/25/17 16:08 Nell Cells Not Reportable 05/25/17 16:08 Bite Cells Not Reportable 05/25/17 16:08 Crenated Cell Not Reportable 05/25/17 16:08 Elliptocytes Few 05/25/17 16:08 Acanthocytes (Spur) Not Reportable 05/25/17 16:08 Rouleaux Not Reportable 05/25/17 16:08 Hemoglobin C Crystals Not Reportable 05/25/17 16:08 Schistocytes Not Reportable 05/25/17 16:08 Malaria parasites Not Reportable 05/25/17 16:08 Rick Bodies Not Reportable 05/25/17 16:08 Hem Pathologist Commnt No 05/25/17 16:08 PT 16.5 Sec. (12.2-14.9) H 05/27/17 05:13 INR 1.27 (0.87-1.13) H 05/27/17 05:13 Sodium 135 mmol/L (137-145) L D 05/25/17 16:08 Potassium 4.1 mmol/L (3.6-5.0) D 05/25/17 16:08 Chloride 90.1 mmol/L (98-107) L 05/25/17 16:08 Carbon Dioxide 23 mmol/L (22-30) 05/25/17 16:08 Anion Gap 26 mmol/L 05/25/17 16:08 BUN 47 mg/dL (7-17) H 05/25/17 16:08 Creatinine 5.9 mg/dL (0.7-1.2) H 05/25/17 16:08 Estimated GFR 9 ml/min 05/25/17 16:08 BUN/Creatinine Ratio 8 % 05/25/17 16:08 Glucose 143 mg/dL (65-100) H 05/25/17 16:08 POC Glucose 91 (70-105) 05/29/17 06:36 Calcium 8.2 mg/dL (8.4-10.2) L 05/25/17 16:08 Total Bilirubin 0.50 mg/dL (0.1-1.2) 05/25/17 07:17 Direct Bilirubin 0.3 mg/dL (0-0.2) H 05/25/17 07:17 Indirect Bilirubin 0.2 mg/dL 05/25/17 07:17 AST 17 units/L (5-40) 05/25/17 07:17 ALT 7 units/L (7-56) 05/25/17 07:17 Alkaline Phosphatase 355 units/L (35-129) H 05/25/17 07:17 Ammonia 26.0 umol/L (25-60) 05/25/17 07:18 Total Creatine Kinase 97 units/L (30-135) 05/25/17 16:08 CK-MB (CK-2) 4.4 ng/mL (0.0-4.0) H 05/25/17 16:08 CK-MB (CK-2) Rel Index 4.5 (0-4) H 05/25/17 16:08 Troponin T 0.349 ng/mL (0.00-0.029) H* 05/25/17 16:08 C-Reactive Protein 6.70 mg/dL (0.00-1.30) H 05/26/17 10:05 Total Protein 6.9 g/dL (6.3-8.2) 05/25/17 07:17 Albumin 2.6 g/dL (3.9-5) L 05/25/17 07:17 Albumin/Globulin Ratio 0.6 % 05/25/17 07:17 Triglycerides 187 mg/dL (2-149) H 05/24/17 16:44 Cholesterol 95 mg/dL (50-199) 05/24/17 16:44 LDL Cholesterol Direct 19 mg/dL (50-130) L 05/24/17 16:44 HDL Cholesterol 39 mg/dL (40-59) L 05/24/17 16:44 Cholesterol/HDL Ratio 2.43 % 05/24/17 16:44 Fluid Type Ascitic 05/26/17 Unknown Fluid Color Straw 05/26/17 Unknown Fluid Appearance Clear 05/26/17 Unknown Fluid WBC 2 /mm3 05/26/17 Unknown Fluid RBC 0 /mm3 05/26/17 Unknown Fluid Seg Neutrophils 0 % 05/26/17 Unknown Fluid Lymphocytes 2 % 05/26/17 Unknown Fluid Reactive Lymphs 0 % 05/26/17 Unknown Fluid Monocytes 3 % 05/26/17 Unknown Fluid Eosinophils 0 % 05/26/17 Unknown Fluid Basophils 0 % 05/26/17 Unknown Hepatitis A IgM Ab Non-reactive (NonReactive) 05/26/17 11:24 Hep Bs Antigen Nonreactive (Negative) 05/26/17 11:24 Hep B Core IgM Ab Non-reactive (NonReactive) 05/26/17 11:24 Hepatitis C Antibody Non-reactive (NonReactive) 05/26/17 11:24 HIV 1&2 Antibody Rapid Reactive (Non React) 05/25/17 16:08 HIV P24 Antigen Non react (Non React) 05/25/17 16:08 Blood Type A POSITIVE 05/25/17 03:54 Antibody Screen Negative 05/25/17 03:54 Crossmatch See Detail 05/25/17 03:54
--- NOTE | 2017-05-30 13:24 | Progress Note ---
Assessment and Plan - Patient Problems (1) Acute hypoxemic respiratory failure Current Visit: Yes Status: Acute (2) Chronic renal failure Current Visit: Yes Status: Acute (3) ESRD (end stage renal disease) Current Visit: Yes Status: Acute Subjective Principal diagnosis: anemia Interval history: awake Objective Vital Signs - 12hr 05/30/17 05/30/17 05/30/17 02:00 07:48 09:29 Temperature 98.0 F Pulse Rate 84 Pulse Rate [ 80 Apical] Respiratory 32 H Rate Blood Pressure 165/98 165/98 O2 Sat by Pulse 96 Oximetry 05/30/17 11:09 Temperature 98.1 F Pulse Rate 84 Pulse Rate [ Apical] Respiratory 20 Rate Blood Pressure 149/94 O2 Sat by Pulse 95 Oximetry Constitutional: no acute distress, alert Eyes: non-icteric ENT: oropharynx moist Neck: supple Effort: normal Ascultation: Right: diminished breath sounds (base) Cardiovascular: regular rate and rhythm (no mrg) Gastrointestinal: normoactive bowel sounds, soft, non-tender, other (distended w / ascites) Integumentary: other (very dry skin) Extremities: no cyanosis, pink and warm, edema (trace bilateral LE edema) Neurologic: normal mental status, non-focal exam, pupils equal and round, CN II- XII normal Psychiatric: other (blunted affect) CBC and BMP: 05/26/17 06:23 05/25/17 16:08 ABG, PT/INR, D-dimer: PT/INR, D-dimer PT 16.5 Sec. (12.2-14.9) H 05/27/17 05:13 INR 1.27 (0.87-1.13) H 05/27/17 05:13 Abnormal lab findings: Abnormal Labs 05/24/17 05/24/17 05/24/17 16:44 16:44 20:44 WBC 2.3 L RBC 2.37 L Hgb 6.5 L Hct 20.5 L RDW 18.4 H Plt Count 136 L Seg Neuts % (Manual) 76.0 H Lymphocytes % (Manual) 5.0 L Seg Neutrophils # Man 1.7 L Lymphocytes # (Manual) 0.1 L PT INR Sodium 128 L Potassium 5.9 H Chloride 83.9 L BUN 91 H Creatinine 9.8 H Glucose 53 L POC Glucose 43 L Calcium 7.9 L Direct Bilirubin Alkaline Phosphatase CK-MB (CK-2) CK-MB (CK-2) Rel Index Troponin T 0.293 H* C-Reactive Protein Albumin Triglycerides 187 H LDL Cholesterol Direct 19 L HDL Cholesterol 39 L Crossmatch 05/25/17 05/25/17 05/25/17 01:28 03:54 06:06 WBC RBC Hgb Hct RDW Plt Count Seg Neuts % (Manual) Lymphocytes % (Manual) Seg Neutrophils # Man Lymphocytes # (Manual) PT INR Sodium Potassium Chloride BUN Creatinine Glucose POC Glucose 109 H 124 H Calcium Direct Bilirubin Alkaline Phosphatase CK-MB (CK-2) CK-MB (CK-2) Rel Index Troponin T C-Reactive Protein Albumin Triglycerides LDL Cholesterol Direct HDL Cholesterol Crossmatch See Detail 05/25/17 05/25/17 05/25/17 07:17 16:08 16:08 WBC 3.7 L RBC 3.52 L Hgb Hct RDW 16.6 H Plt Count 133 L Seg Neuts % (Manual) 98.0 H Lymphocytes % (Manual) 0 L Seg Neutrophils # Man Lymphocytes # (Manual) 0.0 L PT INR Sodium 135 L D Potassium Chloride 90.1 L BUN 47 H Creatinine 5.9 H Glucose 143 H POC Glucose Calcium 8.2 L Direct Bilirubin 0.3 H Alkaline Phosphatase 355 H CK-MB (CK-2) CK-MB (CK-2) Rel Index Troponin T C-Reactive Protein Albumin 2.6 L Triglycerides LDL Cholesterol Direct HDL Cholesterol Crossmatch 05/25/17 05/25/17 05/25/17 16:08 16:57 18:10 WBC RBC Hgb 9.3 L Hct 27.8 L RDW Plt Count Seg Neuts % (Manual) Lymphocytes % (Manual) Seg Neutrophils # Man Lymphocytes # (Manual) PT INR Sodium Potassium Chloride BUN Creatinine Glucose POC Glucose 139 H Calcium Direct Bilirubin Alkaline Phosphatase CK-MB (CK-2) 4.4 H CK-MB (CK-2) Rel Index 4.5 H Troponin T 0.349 H* C-Reactive Protein Albumin Triglycerides LDL Cholesterol Direct HDL Cholesterol Crossmatch 05/25/17 05/26/17 05/26/17 21:26 06:14 10:05 WBC RBC Hgb Hct RDW Plt Count Seg Neuts % (Manual) Lymphocytes % (Manual) Seg Neutrophils # Man Lymphocytes # (Manual) PT INR Sodium Potassium Chloride BUN Creatinine Glucose POC Glucose 130 H 111 H Calcium Direct Bilirubin Alkaline Phosphatase CK-MB (CK-2) CK-MB (CK-2) Rel Index Troponin T C-Reactive Protein 6.70 H Albumin Triglycerides LDL Cholesterol Direct HDL Cholesterol Crossmatch 05/27/17 05/27/17 05/27/17 05:13 05:56 11:33 WBC RBC Hgb Hct RDW Plt Count Seg Neuts % (Manual) Lymphocytes % (Manual) Seg Neutrophils # Man Lymphocytes # (Manual) PT 16.5 H INR 1.27 H Sodium Potassium Chloride BUN Creatinine Glucose POC Glucose 68 L 63 L Calcium Direct Bilirubin Alkaline Phosphatase CK-MB (CK-2) CK-MB (CK-2) Rel Index Troponin T C-Reactive Protein Albumin Triglycerides LDL Cholesterol Direct HDL Cholesterol Crossmatch 05/28/17 22:30 WBC RBC Hgb Hct RDW Plt Count Seg Neuts % (Manual) Lymphocytes % (Manual) Seg Neutrophils # Man Lymphocytes # (Manual) PT INR Sodium Potassium Chloride BUN Creatinine Glucose POC Glucose 124 H Calcium Direct Bilirubin Alkaline Phosphatase CK-MB (CK-2) CK-MB (CK-2) Rel Index Troponin T C-Reactive Protein Albumin Triglycerides LDL Cholesterol Direct HDL Cholesterol Crossmatch
--- NOTE | 2017-05-30 15:18 | Progress Note ---
Assessment and Plan Assessment: 1) Pancytopenia: no evidence of fever so far. DDx: HIV induced versus opportunistic infections. CRP=6.7 2) HIV infection of unclear duration/CD4/VL 3) Right pleural effusion/Right sided body edema/anasarca-likely positional - CT showed extensive ascites with moderate to large right pleural effusion associated with a right lower lobe infiltrate versus atelectasis. 4) ESRD on HD 5) CAD S/P Stent Placement CT of the head showed generalized brain atrophy and right sphenoidal sinusitis. 6) Abdominal pain/N/V: CT showed extensive ascitis and GB stones. SBP ruled out , ascitic fluid normal. Unclear etiology-no better Plan: -follow-up CD4, HIV-viral load, genotype, AFB-blood cultures to r/o MAC - pending -bactrim DS 3 times a week for PJP prophylaxis -pain management Thank you Dr Gomez for your consultation, will follow up with you. Elizabeth Sheikh MD Infectious Diseases Specialist [facility] ([facility]) M [phone] O [phone] Subjective Date of service: 05/30/17 Principal diagnosis: anemia Interval history: Feels the same still c/o severe abdominal pain, N/V. Reports some diarrhea. No fever. Microbiology: Crypto serum ag negative Current Antimicrobials: none Previous Antimicrobials: Objective - Exam Narrative Exam: General appearance: Alert in NAD, cachectic, disheveled. Eyes: anicteric sclerae, moist conjunctivae; no lid-lag; PERRLA HENT: Atraumatic; oropharynx +thrush Neck: Trachea midline; supple, no thyromegaly or lymphadenopathy Lungs: CTA CV: RRR, no murmurs Abdomen: Soft, distended, marked ventral hernia with superficial skin tears Extremities: No peripheral edema or extremity lymphadenopathy Skin: marked right arm edema with pronounced AVF Psych: anxious Neuro: alert and oriented x 3. Moving all extermities Lines: No CVL / PICC - Constitutional Vitals: Vital Signs Temp Pulse Resp BP Pulse Ox 98.9 F 86 16 122/92 99 05/30/17 14:40 05/30/17 14:40 05/30/17 14:40 05/30/17 14:40 05/30/17 14:40 Temperature -Last 24 Hours Temperature 98.9 F Temperature 98.1 F Temperature 98.0 F Temperature 97.6 F Temperature 98.3 F Temperature 98.0 F Temperature 97.7 F Temperature 97.5 F - Labs CBC & Chem 7: 05/26/17 06:23 05/25/17 16:08
--- NOTE | 2017-05-30 16:53 | Progress Note ---
Assessment and Plan - Patient Problems (1) Fluid overload Current Visit: Yes Status: Acute Plan to address problem: Hemodialysis in the morning (2) ESRD (end stage renal disease) Current Visit: Yes Status: Acute Plan to address problem: Hemodialysis in a.m. (3) HIV (human immunodeficiency virus infection) Current Visit: Yes Status: Acute Plan to address problem: Antiretrovirals per Infectious disease (4) Pleural effusion Current Visit: Yes Status: Acute Plan to address problem: Follow-up chest x-ray after dialysis tomorrow Subjective Date of service: 05/30/17 Principal diagnosis: anemia Interval history: Patient seen lying in bed. Complains of pain in her abdomen and her back. Denies shortness of breath. Had extra dialysis yesterday for fluid removal. Objective - Exam Narrative Exam: Middle-aged female lying in bed in no acute distress HEENT: NCAT, pink oral mucous membrane Neck: Supple, no venous distention CVS: S1S2 RRR with no murmur, rub or gallop Chest: Diminished breath sounds bilaterally Abdomen: Mildly distended, soft, nontender, no organomegaly, bowel sounds are present Extremities: No edema Neuro: Awake, alert no focal deficits - Vital Signs Vital signs: Vital Signs - 12hr 05/30/17 05/30/17 05/30/17 07:48 09:29 11:09 Temperature 98.0 F 98.1 F Pulse Rate 84 84 Respiratory 32 H 20 Rate Blood Pressure 165/98 165/98 149/94 O2 Sat by Pulse 96 95 Oximetry 05/30/17 14:40 Temperature 98.9 F Pulse Rate 86 Respiratory 16 Rate Blood Pressure 122/92 O2 Sat by Pulse 99 Oximetry - Lab 05/26/17 06:23 05/25/17 16:08 Most recent lab results Calcium 8.2 mg/dL (8.4-10.2) L 05/25/17 16:08
[2017-05-30] MEDS: DILAUDID PO PRN ×2 (18:05→22:34)
[2017-05-31] MEDS: DILAUDID PO PRN ×3 (05:11→18:35)
[2017-05-31] MEDS: HEPARIN SUB-Q SCH ×2 (05:11→18:31)
[2017-05-31] MEDS: APRESOLINE PO SCH ×3 (09:32→20:14)
--- NOTE | 2017-05-31 12:06 | Progress Note ---
Assessment and Plan Assessment: 1) Pancytopenia: no evidence of fever so far. DDx: HIV induced versus opportunistic infections. CRP=6.7 2) HIV infection of unclear duration/CD4/VL 3) Right pleural effusion/Right sided body edema/anasarca-likely positional - CT showed extensive ascites with moderate to large right pleural effusion associated with a right lower lobe infiltrate versus atelectasis. 4) ESRD on HD 5) CAD S/P Stent Placement CT of the head showed generalized brain atrophy and right sphenoidal sinusitis. 6) Abdominal pain/N/V: CT showed extensive ascitis and GB stones. SBP ruled out , ascitic fluid normal. Unclear etiology-no better Plan: -follow-up CD4, HIV-viral load, genotype, AFB-blood cultures to r/o MAC - pending -bactrim DS 3 times a week for PJP prophylaxis -pain management -ok to d/c from ID stand point, needs ID clinic f/u in 1-[address] Hanson for your consultation, will follow up with you. Elizabeth Sheikh MD Infectious Diseases Specialist [facility] ([facility]) M [phone] O [phone] Subjective Date of service: 05/31/17 Principal diagnosis: anemia Interval history: Feels better, abdominal pain better. Microbiology: Crypto serum ag negative Current Antimicrobials: none Previous Antimicrobials: Objective - Exam Narrative Exam: General appearance: Alert in NAD, cachectic, disheveled. Eyes: anicteric sclerae, moist conjunctivae; no lid-lag; PERRLA HENT: Atraumatic; oropharynx +thrush Neck: Trachea midline; supple, no thyromegaly or lymphadenopathy Lungs: CTA CV: RRR, no murmurs Abdomen: Soft, distended, marked ventral hernia with superficial skin tears Extremities: No peripheral edema or extremity lymphadenopathy Skin: marked right arm edema with pronounced AVF Psych: anxious Neuro: alert and oriented x 3. Moving all extermities Lines: No CVL / PICC - Constitutional Vitals: Vital Signs Temp Pulse Resp BP Pulse Ox 97.7 F 81 20 169/98 97 05/31/17 11:00 05/31/17 11:00 05/31/17 11:00 05/31/17 11:00 05/31/17 11:00 Temperature -Last 24 Hours Temperature 97.7 F Temperature 98.4 F Temperature 98.5 F Temperature 98.9 F - Labs CBC & Chem 7: 05/26/17 06:23 05/25/17 16:08
--- NOTE | 2017-05-31 12:27 | Discharge Summary ---
Providers - Providers Date of Admission: 05/25/17 02:48 Attending physician: ROS HENNESSY MD 05/25/17 02:54 Consult to Physician [CONS] Routine Consulting Provider: LATONIA HUBBARD Reason For Exam: esrd Place consult to:: DR. HUBBARD Notified:: Jason Phone number called:: [phone] Was contact made?: Yes If yes, spoke with:: DANIEL Caputo called:: 07:53 Comment:: ONESIMO NOTIFIED 05/25/17 14:07 Consult to Physician [CONS] Routine Consulting Provider: ESTEFANIA SAMUELS Reason For Exam: abdominal pain, abdominal surgery Place consult to:: General surgery/DR. SAMUELS Notified:: OFFICE Phone number called:: [phone] Was contact made?: Yes If yes, spoke with:: ANTHONY Caputo called:: 14:37 Comment:: RUTH ANN NOTIFIED 05/25/17 14:09 Consult to Mental Health [CONS] Routine Reason For Exam: Patient is confused Place consult to:: mental health Notified:: PHILIP Phone number called:: IN HOUSE Was contact made?: Yes If yes, spoke with:: PHILIP Time called:: 14:32 Comment:: RUTH ANN NOTIFIED 05/25/17 14:11 Consult to Physician [CONS] Routine Consulting Provider: HALEIGH MCCULLOUGH Reason For Exam: anemia, blood in the stool Place consult to:: [facility]/DR. Rubén MCCULLOUGH Notified:: OFFICE Phone number called:: [phone] Was contact made?: Yes If yes, spoke with:: DESHAUN Time called:: 14:39 Comment:: TOBIAS NOTIFIED 05/25/17 14:17 Consult to Physician [CONS] Routine Consulting Provider: JENNIFER OTTO Reason For Exam: cardiomegally, dyspnea Place consult to:: [facility]/DR. OTTO Notified:: DILEEP Jessica Phone number called:: IN HOUSE Was contact made?: Yes If yes, spoke with:: DILEEP Jessica Time called:: 14:45 Comment:: JOSETTE NOTIFIED 05/25/17 14:47 Consult to Physician [CONS] Routine Consulting Provider: ALEX BROWN Reason For Exam: HIV Place consult to:: ID/DR. FORTUNE Notified:: DR. FORTUNE Phone number called:: [phone] Was contact made?: Yes If yes, spoke with:: DR. FORTUNE Time called:: 15:10 Comment:: WILL SEE IN AM WED. 05/26/17 05/25/17 15:50 Consult to Wound/ET Nurse [CONS] Routine Reason For Exam: superficial abdominal wound 05/29/17 17:40 Consult to Dietitian/Nutrition [CONS] Routine Physician Instructions: Reason For Exam: Reason for Consult: Malnutrition Physical Therapy Evaluation and Treat [CONS] Routine Comment: Reason For Exam: debility Primary care physician: GISEL YAO Hospitalization Condition: Stable Hospital course: 40 year old -Thai female presented to the emergency department with complaints of missed dialysis, not feeling well, confusion. Per chart review patient had history of HIV, ESRD on hemodialysis. Patient said she presented for fluid overload Abdominal pain, anorexia and nausea GI input appreciated, advanced diet as tolerated. Fluid overload secondary to missed dialysis received HD and improved counseled on improved compliance Right-sided pleural effusion Pulmonology input appreciated, case discussed with the artificial fly tier At this point she has multiple comorbidities, fluid overload/anasarca is most likely due to missed dialysis sessions. -the risks likely outweigh the benefits to thoracentesis. We'll continue dialysis. Patient improving Hyperkalemia Has now resolved with dialysis ESRD on hemodialysis Nephrology consulted and patient had hemodialysis Severe Anemia transfused 3 units of blood, with a posttransfusion H&H GI input appreciated "Anemia - unknown baseline, along with pancytopenia. repeat labs pending. difficult to obtain history from pt regarding signs of overt bleeding. EGD if signs of overt bleeding and based on clinical course/ progress. Cirrhosis with ascites - unclear etiology, + ascites, ammonia wnl; check viral hep serologies and diagnostic tap if feasible by IR. avoid sedating medications. " Status post paracentesis which only shows transudate Type II FL Manage comorbidities, no further workup indicated Case discussed with the laboratory chemist Abdominal wound and right buttock ulcer Present on admission, received wound care HIV infection Case discussed with infectious disease consultants received Bactrim for PJP prophylaxis Id consult appreciated, will fup with ID as outpatient Severe malnutrition consult nutrition, encouraged increased by mouth intake Debility improved, ambulating well without assistance Narcotic depending switch from IV to PO dilaudid with plan to wean her off over time Acute metabolic encephalopathy -improved as acute illnesses were managed Disposition: DC/[facility] CERT Time spent for discharge: 33 minutes Core Measure Documentation - Palliative Care Palliative Care/ Comfort Measures: Not Applicable - Core Measures Any of the following diagnoses?: none Exam - Physical Exam Narrative exam: General.: Appears chronically ill cachetic HEENT: Moist mucous membranes, extraocular muscles intact, no lymphadenopathy Neck: supple Cardiac: S1-S2 heard Lungs: clear to auscultation bilaterally Abdomen: soft , nontender, nondistended, bowel sounds positive Extremities: no edema clubbing or cyanosis Skin: Abdominal wounds noted, no odor or drainage Right gluteal fold wound, no drainage or order presents, multiple scars and small wounds all over body she is actively seen picking at her skin and creating wounds Neurologic: no gross focal deficits Psych: appropriate behavior, appropriate mood, corporative, judgment intact - Constitutional Vitals: Temp Pulse Resp BP Pulse Ox 97.7 F 81 20 169/98 97 05/31/17 11:00 05/31/17 11:00 05/31/17 11:00 05/31/17 11:00 05/31/17 11:00 Plan Follow up with: PRIMARY CARE, [Referring] - 3-5 Days Prescriptions: HYDROmorphone [Dilaudid] 2 mg PO Q4H PRN #14 tablet PRN Reason: Pain , Severe (7-10) Sulfamethoxazole/Trimethoprim [Bactrim DS TAB] 1 each PO 3XW #15 tablet
[2017-05-31] MEDS: APRESOLINE IV PRN ×2 (15:09→20:10)
[2017-05-31] MEDS: LOPRESSOR PO SCH (15:14)
--- NOTE | 2017-05-31 15:24 | Query-Altered Level of Consc. ---
Daryl Woodward___[place] Date:___05/31/2017 [employer] Worker/CDS:__Latoya Phone#:___[phone] Exercise your independent professional judgment when responding to this query. Questions asked do not imply a particular answer is desired or expected. We greatly appreciate your clarification on this issue. Clinical Documentation States: 41 Year old female was admitted on 05/24/2017 for evaluation. At time of exam, pt is lethargic, confused, and unable to provide history. The Discharge summary states "40 year old -Turkmen female presented to the emergency department with complaints of missed dialysis, not feeling well, confusion." IM H&P (Dr. Rodas) note states "(2) HIV encephalopathy Current Visit: Yes Status: Acute Plan to address problem: CT head, neuro checks, ammonia level, supportive care." Please provide an appropriate diagnosis clarifying the Etiology and Acuity of this clinical scenario: [x ] Metabolic Encephalopathy [ ] Toxic Encephalopathy [ ] Toxic - Metabolic Encephalopathy [ ] Septic Encephalopathy with Sepsis [ ] Septic Encephalopathy without Sepsis [ ] Acute Hepatic Encephalopathy [ ] Subacute Hepatic Encephalopathy [ ] Other: [ ] Unable To Determine [ ]Comment/Explanation: Present on Admission: [ x] Yes (Y) [ ] Clinically undeterminable (W) [ ] No (N) Please also document response in your Progress Notes and/or Discharge Summary and indicate if the condition was present on admission. LISETTED
--- NOTE | 2017-05-31 17:44 | Progress Note ---
Assessment and Plan (1) Fluid overload Current Visit: Yes Status: Acute Plan to address problem: HD on MWF schedule, UF as hemodynamics allow (2) ESRD (end stage renal disease) Current Visit: Yes Status: Acute Plan to address problem: Hemodialysis on MWF schedule (3) HIV (human immunodeficiency virus infection) Current Visit: Yes Status: Acute Plan to address problem: Antiretrovirals per Infectious disease (4) Pleural effusion Current Visit: Yes Status: Acute Plan to address problem: Mx er primary team Subjective Date of service: 05/31/17 Principal diagnosis: anemia Interval history: NO new complaints Objective - Exam Narrative Exam: Middle-aged female lying in bed in no acute distress HEENT: NCAT, pink oral mucous membrane Neck: Supple, no venous distention CVS: S1S2 RRR with no murmur, rub or gallop Chest: Diminished breath sounds bilaterally, no wheezing Abdomen: Mildly distended, soft, nontender, no organomegaly, bowel sounds are present Extremities: No edema, clubbing Neuro: Awake, alert no focal deficits - Vital Signs Vital signs: Vital Signs - 12hr 05/31/17 05/31/17 05/31/17 07:47 11:00 13:45 Temperature 98.4 F 97.7 F Pulse Rate 79 81 86 Respiratory 18 20 Rate Blood Pressure 189/105 184/112 Blood Pressure 169/98 [Left] O2 Sat by Pulse 96 97 Oximetry 05/31/17 05/31/17 05/31/17 14:00 14:15 14:30 Temperature Pulse Rate 81 79 78 Respiratory Rate Blood Pressure 169/104 201/119 199/119 Blood Pressure [Left] O2 Sat by Pulse Oximetry 05/31/17 05/31/17 05/31/17 14:45 14:46 15:00 Temperature 97.7 F Pulse Rate 73 88 75 Respiratory 20 Rate Blood Pressure 208/123 184/111 206/120 Blood Pressure [Left] O2 Sat by Pulse Oximetry 05/31/17 05/31/17 05/31/17 15:09 15:14 15:15 Temperature Pulse Rate 75 75 75 Respiratory Rate Blood Pressure 206/120 206/120 188/106 Blood Pressure [Left] O2 Sat by Pulse Oximetry 05/31/17 05/31/17 05/31/17 15:30 15:45 16:00 Temperature Pulse Rate 75 81 75 Respiratory Rate Blood Pressure 188/103 197/111 196/107 Blood Pressure [Left] O2 Sat by Pulse Oximetry 05/31/17 05/31/17 05/31/17 16:15 16:30 16:45 Temperature Pulse Rate 75 67 68 Respiratory Rate Blood Pressure 191/114 219/108 207/102 Blood Pressure [Left] O2 Sat by Pulse Oximetry 05/31/17 17:00 Temperature Pulse Rate 76 Respiratory Rate Blood Pressure 183/107 Blood Pressure [Left] O2 Sat by Pulse Oximetry - Lab 05/26/17 06:23 05/25/17 16:08 Most recent lab results Calcium 8.2 mg/dL (8.4-10.2) L 05/25/17 16:08
[2017-05-31] MEDS ORDERED: BACTRIM DS PO SCH (18:00)
[2017-05-31] MEDS: COZAAR PO SCH (18:30)
[2017-05-31] MEDS: PROCARDIA XL PO SCH (18:31)
[2017-05-31 20:15] VITALS: BP 186/110
[2017-06-01 07:15] LABS: Total Protein,Body Fluid 5.5 (15.0-45.0)
[2017-06-07 13:26] LABS: HIV-1 RNA QN PCR 4.9 Log cps/mL (<1.30)
== END 2017-05-31 20:50 | DRG 977 ==
LOC: ED 14:26 → 3A 05-25 02:48
PROVIDERS: ADMIT Internal Medicine; ATTEND Internal Medicine
PROC: 5A1D70Z Performance of Urinary Filtration, Intermittent, Less than 6 Hours Per Day (ICD-10-PCS; 2017-05-25)
PROC: 30233N1 Transfusion of Nonautologous Red Blood Cells into Peripheral Vein, Percutaneous Approach (ICD-10-PCS; 2017-05-25)
PROC: 5A1D70Z Performance of Urinary Filtration, Intermittent, Less than 6 Hours Per Day (ICD-10-PCS; 2017-05-26)
PROC: 0W9G3ZZ Drainage of Peritoneal Cavity, Percutaneous Approach (ICD-10-PCS; principal; 2017-05-27)
PROC: 5A1D70Z Performance of Urinary Filtration, Intermittent, Less than 6 Hours Per Day (ICD-10-PCS; 2017-05-28)
PROC: 5A1D70Z Performance of Urinary Filtration, Intermittent, Less than 6 Hours Per Day (ICD-10-PCS; 2017-05-29)
PROC: 5A1D70Z Performance of Urinary Filtration, Intermittent, Less than 6 Hours Per Day (ICD-10-PCS; 2017-05-31)
DX: B20 Human immunodeficiency virus [HIV] disease (principal); I21.A1 Myocardial infarction type 2; J96.01 Acute respiratory failure with hypoxia; N18.6 End stage renal disease; E43 Unspecified severe protein-calorie malnutrition; J90 Pleural effusion, not elsewhere classified; E87.1 Hypo-osmolality and hyponatremia; Z68.1 Body mass index [BMI] 19.9 or less, adult; I13.2 Hypertensive heart and chronic kidney disease with heart failure and with stage 5 chronic kidney disease, or end stage renal disease; I42.9 Cardiomyopathy, unspecified; R18.8 Other ascites; F11.20 Opioid dependence, uncomplicated; E87.5 Hyperkalemia; E87.70 Fluid overload, unspecified; Z99.2 Dependence on renal dialysis; K74.60 Unspecified cirrhosis of liver; D72.819 Decreased white blood cell count, unspecified; I16.0 Hypertensive urgency; Z88.6 Allergy status to analgesic agent; Z88.8 Allergy status to other drugs, medicaments and biological substances; I50.9 Heart failure, unspecified; F32.9 Major depressive disorder, single episode, unspecified; G89.29 Other chronic pain; M54.9 Dorsalgia, unspecified; E78.00 Pure hypercholesterolemia, unspecified; K21.9 Gastro-esophageal reflux disease without esophagitis; Z87.891 Personal history of nicotine dependence; G40.909 Epilepsy, unspecified, not intractable, without status epilepticus; Z82.49 Family history of ischemic heart disease and other diseases of the circulatory system; D63.8 Anemia in other chronic diseases classified elsewhere; I25.10 Atherosclerotic heart disease of native coronary artery without angina pectoris; I27.20 Pulmonary hypertension, unspecified; L98.419 Non-pressure chronic ulcer of buttock with unspecified severity; S31.109A Unspecified open wound of abdominal wall, unspecified quadrant without penetration into peritoneal cavity, initial encounter; X58.XXXA Exposure to other specified factors, initial encounter; Y93.89 Activity, other specified; Y92.89 Other specified places as the place of occurrence of the external cause; Y99.8 Other external cause status; G32.89 Other specified degenerative disorders of nervous system in diseases classified elsewhere
CPT/HCPCS: 36415; 36430; 49083; 70450; 71010; 74176; 80048; 80061; 80074; 82024; 82040; 82140; 82550; 82553; 82962; 84160; 84484; 85007; 85014; 85018; 85025; 85610; 86140; 86403; 86689; 86705; 86706; 86709; 86850; 86900; 86901; 86920; 87116; 87536; 87806; 87901; 88112; 88305; 89051; 93005; 93010; 93306; 96374; 96375; A9270-GY; J0360; J0885; J1170; J1200; J1644; J2405; J2930; J7030; J7040; P9016